=== PATIENT | female | born 1930 | race Caucasian/White ===

== ENCOUNTER 2016-06-29 11:20 | Inpatient (IN) | payer OTHER, MEDICARE ==
[~2016-06-29] VITALS: Ht 177.8 cm; Wt 78.2 kg
--- NOTE | 2016-06-29 11:55 | ED GENERAL ADULT ---
History of Present Illness General Chief Complaint: General Adult Stated Complaint: LEFT ARM NUMBNESS -CP Source: patient, family Exam Limitations: no limitations Vital Signs & Intake/Output Vital Signs & Intake/Output Vital Signs Date Time Temp Pulse Resp B/P Pulse O2 O2 Flow FiO2 Ox Delivery Rate 06/29 2141 97.8 76 20 140/80 97 06/29 2003 97.8 79 18 142/79 95 Room Air 06/29 1417 98.1 75 18 181/82 94 06/29 1146 98.4 77 20 109/69 91 Room Air Allergies Coded Allergies: No Known Drug Allergies (06/29/16) Reconcile Medications Amlodipine (Norvasc) 2.5 MG TABLET 1 TAB PO DAILY D (Reported) Levothyroxine Sodium (Synthroid) 100 MCG TABLET 1 TAB PO DAILY THYROID ( Reported) Lisinopril 20 MG TABLET 1 TAB PO DAILY HTN (Reported) Metoprolol Succinate 100 MG TAB.ER.24H 1 TAB PO DAILY HTN (Reported) Simvastatin (Zocor*) 20 MG TABLET 1 TAB PO DAILY CHOLESTEROL (Reported) Warfarin Sodium (Coumadin) 5 MG TABLET 1 TAB PO 3X/WEEK HEART HEALTH ( Reported) Warfarin Sodium (Coumadin) 2.5 MG TABLET 1 TAB PO /SUN HEART HEALTH ( Reported) Triage Note: C/O R FOREARM NUMBNESS SINCE 0900, DENIES CHEST PAIN OR SOB, BUT DOESNT RECALL IF SHE WAS DIZZY. STATES SHE HAS MEMORY PROBLEMS AND IS ON COUMADIN FOR IRREGUALR HEART BEAT. EKG DONE IN TRIAGE. Triage Nurses Notes Reviewed? yes Onset: Abrupt Duration: hour(s): Timing: recent history HPI: 06/29/16 This 86-year-old female presents to the emergency department for right arm pain and numbness. According to the patient she was in her usual state of health until 9:00 am this morning when she developed stiffness to the right arm and weakness particularly in the right thumb and first and second fingers. She says that she's had weakness and stiffness infingers before but it seemed worse today she's also had some pain radiating up mostly to the right forearm and into the right shoulder. There is no chest pain, there is no shortness of breath there is no headache there is no slurred speech. The onset of the symptoms were abrupt, the duration was just this is morning, the severity was significant as her symptoms required her to come to the emergency department for care. She does have a past medical history of a heart problem. Is currently on Coumadin. 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 Her primary care doctor is Dr. Evans his his phone number is [phone] his cell phone number is [phone] Past History Travel History Traveled to [place] past 21 day No Medical History Any Pertinent Medical History? see below for history Cardiovascular: AFIB, hypertension Surgical History Surgical History: non-contributory Psychosocial History What is your primary language Croatian Tobacco Use: Never used ETOH Use: occasional use Family History Hx Contributory? No Review of Systems Review of Systems Constitutional: Denies: fever. EENTM: Denies: visual changes. Respiratory: Denies: short of breath. Cardiovascular: Denies: chest pain. GI: Denies: abdominal pain. Genitourinary: Reports: no symptoms. Musculoskeletal: Reports: no symptoms. Skin: Reports: no symptoms. Neurological/Psychological: Reports: see HPI. Hematologic/Endocrine: Reports: no symptoms. Physical Exam Physical Exam General Appearance: well developed/nourished, alert, awake, anxious, mild distress Head: atraumatic, normal appearance Eyes: Bilateral: normal appearance, PERRL, EOMI. Ears, Nose, Throat: normal pharynx, normal ENT inspection Neck: normal inspection Respiratory: normal breath sounds, chest non-tender, no respiratory distress Cardiovascular: irregularly irregular Peripheral Pulses: 4+ brachial (R), 4+ brachial (L), 1+ radial (R), 4+ radial (L) Gastrointestinal: non-tender Rectal: heme negative stool Back: decreased range of motion Extremities: the right hand initially had only weakness to international trade teacher strength the remainder of exam was unremarkable. Neurologic/Psych: no motor/sensory deficits, awake, alert, oriented x 3 Skin: intact, normal color, warm/dry Core Measures ACS in differential dx? No CVA/TIA Diagnosis: No Severe Sepsis Present: No Septic Shock Present: No Progress Differential Diagnoses I considered the following diagnoses in my evaluation of the patient: CVA, acute coronary syndrome, thoracic outlet syndrome, TIA, aortic dissection, peripheral embolization, DVT, hematoma Plan of Care: Orders Procedure Date/time Status Nothing by Mouth 06/30 B Active FRESH FROZEN PLASMA 06/30 0400 Active PARTIAL THROMBOPLASTIN TIME 06/30 0130 Active Heart Healthy Diet 06/29 D Complete URINE OSMOLALITY 06/29 2126 Active URINE LYTES, SPOT 06/29 2126 Active URINALYSIS 06/29 2126 Active SERUM OSMOLALITY 06/29 2028 Complete PROTHROMBIN TIME 06/29 1954 Complete CBC WITHOUT DIFFERENTIAL 06/29 1954 Complete BASIC ELECTROLYTES PLUS BUN&CR 06/29 1954 Complete Pathway - chart 06/29 1951 Active House Staff 06/29 1951 Active Patient Data 06/29 1951 Active Add-on Test (ER Only) 06/29 1943 Active Patient Data 06/29 183 Active Admit to inpatient 06/29 181 Active Vital Signs 06/29 181 Active Code Status 06/29 181 Active Intake & Output 06/29 1244 Active PARTIAL THROMBOPLASTIN TIME 06/29 1230 Complete TROPONIN LEVEL 06/29 1227 Complete PROTHROMBIN TIME 06/29 1227 Complete COMPREHENSIVE METABOLIC PANEL 06/29 1227 Complete CBC WITHOUT DIFFERENTIAL 06/29 1227 Complete EKG 06/29 1123 Active Lab Add-on Test 06/29 UNK Active VTE Mechanical Prophylaxis 06/29 UNK Active Telemetry/Director Of Architecture 06/29 UNK Active Current Medications Sig/James Start time Last Medication Dose Stop Time Status Admin Atorvastatin Calcium 20 MG 1700 06/30 1700 AC (Lipitor) Amlodipine Besylate 2.5 MG DAILY 06/30 1000 AC (Norvasc) Lisinopril 20 MG DAILY 06/30 1000 AC (Prinivil) Metoprolol Succinate 100 MG DAILY 06/30 1000 AC (Toprol Xl) Levothyroxine Sodium 0.1 MG DAILY AC 06/30 0700 AC (Synthroid) Acetaminophen 650 MG Q6P PRN 06/29 2000 AC (Tylenol) Heparin Sodium 25,000 UNIT Q24H 06/29 2000 AC (Porcine) (Heparin) Sodium Chloride 500 ML Oxycodone HCl 5 MG Q6H PRN 06/29 2000 AC (Roxicodone) Laboratory Tests 06/29/162027: Anion Gap 8, Estimated GFR 59 L, BUN/Creatinine Ratio 15.6, Serum Osmolality 282 L, PT 28.0 H, INR 2.69 H, CBC w Diff NO MAN DIFF REQ, RBC 3.83 L, MCV 94.8, MCH 31.6 H, RDW 13.2, MPV 7.9, Gran % 48.2, Lymphocytes % 34.7, Monocytes % 11.3 H, Eosinophils % 5.2 H, Basophils % 0.6, Absolute Granulocytes 2.6, Absolute Lymphocytes 1.9, Absolute Monocytes 0.6, Absolute Eosinophils 0.3, Absolute Basophils 0, PUBS MCHC 33.4 06/29/16 1236: Anion Gap 12, Estimated GFR 59 L, BUN/Creatinine Ratio 20.0, Glucose 112 H, Calcium 9.7, Total Bilirubin 0.7, AST 25, ALT 25, Alkaline Phosphatase 52, Troponin I < 0.01, Total Protein 6.7, Albumin 3.8, Globulin 2.9, Albumin/ Globulin Ratio 1.3, CBC w Diff NO MAN DIFF REQ, RBC 3.95 L, MCV 93.7, MCH 31.5 H, RDW 13.2, MPV 7.8, Gran % 60.1, Lymphocytes % 24.5, Monocytes % 10.0 H, Eosinophils % 4.4, Basophils % 1.0, Absolute Granulocytes 2.9, Absolute Lymphocytes 1.2, Absolute Monocytes 0.5, Absolute Eosinophils 0.2, Absolute Basophils 0, PUBS MCHC 33.7 06/29/16 1230: PT 25.0 H, INR 2.40 H, APTT 50 H Initial ED EKG: atrial fibrillation Departure Departure Disposition: STILL A PATIENT Condition: Stable Clinical Impression Primary Impression: 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 Chest x-ray was negative. EKG shows A. fib. Labs were unremarkable. Upon reevaluation The patient has a decreased right radial pulse. She has a palpable left radial pulse. And good bilateral brachial pulses. I have called vascular surgery. She also has purple discoloration to the fingertips on the right hand. Angiogram was obtained- PATIENT: HEIDE CERON PRESENT AGE: 86 PATIENT ACCOUNT NO: [id number] : 29 LOCATION: [facility] ORDERING PHYSICIAN: RODOLFO RICHARD DO SERVICE DATE: 06/29/16-8110 EXAM TYPE: CAT - CT UPPER EXT ANGIOGRAM EXAMINATION: CT ANGIOGRAM UPPER EXTREMITY, RIGHT CLINICAL INFORMATION: Cold right hand. No radial pulse. COMPARISON: None. Or significant calcification TECHNIQUE: 95 Optiray 320 intravenous contrast. DLP: 466 mGy-cm. FINDINGS: Vascular: There is atherosclerotic calcification of the subclavian artery without stenosis. The subclavian, axillary, and proximal brachial arteries are patent without stenosis and well-opacified. There is focal, abrupt change in opacification of the distal brachial artery at the elbow joint with near complete short segment occlusion. The ulnar artery is weakly opacified. The proximal radial artery is reconstituted by a collateral vessel. However, the radial artery also has an abrupt change in opacification in the mid forearm, as seen series 2 image 898. The interosseous artery is poorly opacified. There is likely diminished flow to the arteries of the hand due to these findings, as well as bolus timing. Adjacent structures: There is a 3 mm right upper lobe pulmonary nodule. There is mild atelectasis and underlying emphysema. IMPRESSION: 1. Focal occlusion of the distal brachial artery. Given the abrupt change in opacification, a thrombus or embolus is suspected. 2. Reconstitution of the proximal radial artery via collateralization, but there is also an abrupt occlusion of the radial artery in the mid to distal third of the forearm. A second embolus is likely. 3. Weakly opacified ulnar artery, secondary to the brachial occlusion. Consider conventional angiogram to further evaluate and for possible treatment. 4. Emphysema with incidental pulmonary nodule. Recommend non-urgent follow up chest CT. This critical result was discussed with Dr. Richard at 5:37 PM on 06/29/2016 and it was ascertained that the content and urgency of the report was understood at the time of direct communication. DICTATED BY: JORJE GALINDO MD DATE/TIME DICTATED:06/29/161702 CUFFING MACHINE OPERATOR:JAVIER DATE/TIME TRANSCRIBED:06/29/161702 CONFIDENTIAL, DO NOT COPY WITHOUT APPROPRIATE AUTHORIZATION. <Electronically signed in Other Vendor System> SIGNED BY: JORJE GALINDO MD 0616 The patient was started on heparin. Vascular surgery was informed of the results. The surgical PA was informed. He evaluated the patient in the ED. The patient was admitted to the telemetry service under the blogs manager Dr. Nguyen. Admission Note Spoke With: LIZ CABRALES PhD,LEATHA Montaño Documentation of Exam: Documentation of any treatments & extenuating circumstances including Concerns Regarding Discharge (functional status, medication knowledge or non-compliance, living conditions, etc.) that warrant an admission rather than observation: [The patient needs admission for IV heparin, inpatient echocardiogram, vascular surgery consultation. I discussed the case in detail both with Dr. Cristobal originally and then with . ] Critical Care Note Critical Care Note Critical Care Time: 30-74 min
[2016-06-29 12:44] LABS: ABSOLUTE BASOPHIL COUNT 0 /CUMM (0.0-0.2); ABSOLUTE EOSINOPHIL COUNT 0.2 /CUMM (0.0-0.7); ABSOLUTE GRANULOCYTE CT 2.9 /CUMM (1.4-6.5); ABSOLUTE LYMPH COUNT 1.2 /CUMM (1.2-3.4); ABSOLUTE MONOCYTE COUNT 0.5 /CUMM (0.10-0.60); EOSINOPHIL % 4.4 % (0-5); GRANULOCYTE % 60.1 % (42.2-75.2); MEAN CORPUSCULAR HGB 31.5 PG (27.0-31.0); MEAN CORPUSCULAR HGB CONC 33.7 G/DL (33.0-37.0); MEAN CORPUSCULAR VOLUME 93.7 FL (81.0-99.0); MEAN PLATELET VOLUME 7.8 FL (7.4-10.4); PLATELET COUNT 223 /CUMM (130-400); RBC DISTRIBUTION WIDTH 13.2 % (11.5-14.5); RED BLOOD CELL CT 3.95 /CUMM (4.20-5.40); WHITE BLOOD CELL COUNT 4.8 /CUMM (4.8-10.8)
[2016-06-29] MEDS ORDERED: NORVASC2.5 M1 PO (12:45)
[2016-06-29] MEDS ORDERED: ZOCOR20 M1 PO (12:45)
[2016-06-29] MEDS ORDERED: COUMADIN5 M2 PO (12:46)
[2016-06-29] MEDS ORDERED: SYNTHROID100 MCG PO (12:47)
[2016-06-29] MEDS ORDERED: COUMADIN2.5 M1 PO (12:47)
[2016-06-29] MEDS ORDERED: LISINOPRIL20 M1 PO (12:47)
[2016-06-29] MEDS ORDERED: METOPROLOL SUC100 M2 PO (12:48)
--- NOTE | 2016-06-29 13:09 | CT SCAN REPORT ---
EXAMINATION: CT HEAD WITHOUT CONTRAST CLINICAL INFORMATION: Right arm weakness. COMPARISON: None. TECHNIQUE: Contiguous axial imaging was performed from the skull base to vertex without intravenous administration of contrast. DLP: 600.71 mGy-cm. FINDINGS: There is atherosclerotic calcification of the cavernous carotid arteries. No evidence of a dense middle cerebral artery sign or insular ribbon sign. Patchy hypoattenuation within supratentorial white matter is nonspecific but typically indicative with chronic small vessel ischemic change. The mack-white matter differentiation is well preserved. No signs of an acute major vascular territory infarction. No intracranial hemorrhage, extra-axial fluid collection, focal mass effect or midline shift. Mild atrophy of cerebral and cerebellar hemispheres associated with symmetric prominence of ventricles, sulci and cisterns. There is a mucus retention cyst of the posterior left maxillary antrum. Incidentally noted is opacification of inferior left mastoid air cells. Otherwise, mastoid air cells and middle ear cavities are well aerated. There have been ocular lens extractions. IMPRESSION: 1. No acute intracranial pathology. 2. Mild cerebral atrophy, atherosclerosis of cavernous carotid arteries, and findings suggestive of chronic, moderate small vessel ischemic change.
--- NOTE | 2016-06-29 13:17 | RADIOLOGY REPORT ---
EXAMINATION: XR PORTABLE CHEST CLINICAL INFORMATION: Right arm pain COMPARISON: None. TECHNIQUE: Portable view of the chest was obtained. FINDINGS: The lungs are well expanded. The costophrenic angles are not fully included on this study. No consolidation, edema, or significant effusion. No pneumothorax. The cardiomediastinal silhouette is within normal limits for this technique, with a calcified aorta. IMPRESSION: No acute pulmonary findings.
--- NOTE | 2016-06-29 17:41 | CT SCAN REPORT ---
EXAMINATION: CT ANGIOGRAM UPPER EXTREMITY, RIGHT CLINICAL INFORMATION: Cold right hand. No radial pulse. COMPARISON: None. Or significant calcification TECHNIQUE: 95 Optiray 320 intravenous contrast. DLP: 466 mGy-cm. FINDINGS: Vascular: There is atherosclerotic calcification of the subclavian artery without stenosis. The subclavian, axillary, and proximal brachial arteries are patent without stenosis and well-opacified. There is focal, abrupt change in opacification of the distal brachial artery at the elbow joint with near complete short segment occlusion. The ulnar artery is weakly opacified. The proximal radial artery is reconstituted by a collateral vessel. However, the radial artery also has an abrupt change in opacification in the mid forearm, as seen series 2 image 898. The interosseous artery is poorly opacified. There is likely diminished flow to the arteries of the hand due to these findings, as well as bolus timing. Adjacent structures: There is a 3 mm right upper lobe pulmonary nodule. There is mild atelectasis and underlying emphysema. IMPRESSION: 1. Focal occlusion of the distal brachial artery. Given the abrupt change in opacification, a thrombus or embolus is suspected. 2. Reconstitution of the proximal radial artery via collateralization, but there is also an abrupt occlusion of the radial artery in the mid to distal third of the forearm. A second embolus is likely. 3. Weakly opacified ulnar artery, secondary to the brachial occlusion. Consider conventional angiogram to further evaluate and for possible treatment. 4. Emphysema with incidental pulmonary nodule. Recommend non-urgent follow up chest CT. This critical result was discussed with Dr. Chun at 5:37 PM on 06/29/2016 and it was ascertained that the content and urgency of the report was understood at the time of direct communication.
--- NOTE | 2016-06-29 18:38 | Cons- Vascular Surgery ---
General Information and HPI Consulting Request Date of Consult: 06/29/16 Requested By: Parveen Nguyen MD Reason for Consult: Right upper extremity arterial thrombosis Source of Information: patient, family Exam Limitations: no limitations History of Present Illness: This is an 86-year-old female with a known history of A. fib treated on Coumadin who came to [facility] this morning with complaints of right upper extremity pain, stiffness, and numbness which began approximately 9:00 this morning. The patient had never experienced anything similar in the past and had no other complaints at the current time. Allergies/Medications Allergies: Coded Allergies: No Known Drug Allergies (06/29/16) Home Med List: Amlodipine (Norvasc) 2.5 MG TABLET 1 TAB PO DAILY D (Reported) Dabigatran Etexilate Mesylate (Pradaxa 150 MG) 150 MG CAPSULE 1 CAP PO BID blood thinner Levothyroxine Sodium (Synthroid) 100 MCG TABLET 1 TAB PO DAILY THYROID ( Reported) Lisinopril 20 MG TABLET 1 TAB PO DAILY HTN (Reported) Simvastatin (Zocor*) 20 MG TABLET 1 TAB PO DAILY CHOLESTEROL (Reported) Past History Medical History Cardiovascular: AFIB, hypertension, hyperlipidemia Endocrine: hypothyroidism Surgical History Pertinent Surgical History: appendectomy Psychosocial History Where Do You Live? Home Who Do You Live With? child Smoking Status: Never Smoked ETOH Use: occasional use Functional Ability ADLs Independent: dressing, eating, toileting, bathing. Review of Systems Review of Systems Cardiovascular: Denies: chest pain, palpitations. Respiratory: Denies: cough, short of breath. GI: Denies: bloody stool. Exam & Diagnostic Data Vital Signs and I&O Vital Signs Date Time Temp Pulse Resp B/P Pulse O2 O2 Flow FiO2 Ox Delivery Rate 06/29 1417 98.1 75 18 181/82 94 06/29 1146 98.4 77 20 109/69 91 Room Air Intake & Output 06/29 1600 06/29 0800 06/29 0000 06/28 1600 06/28 0800 06/28 0000 Intake Total Output Total Balance Patient 200 lb Weight Laboratory Tests 06/29 06/29 1236 1230 Chemistry Sodium (137 - 145 mmol/L) 132 L Potassium (3.5 - 5.1 mmol/L) 4.0 Chloride (98 - 107 mmol/L) 92 L Carbon Dioxide (22 - 30 mmol/L) 28 Anion Gap (5 - 16) 12 BUN (7 - 17 mg/dL) 18 H Creatinine (0.5 - 1.0 mg/dL) 0.9 Estimated GFR (>60 ml/min) 59 L BUN/Creatinine Ratio (7 - 25 %) 20.0 Glucose (65 - 99 mg/dL) 112 H Calcium (8.4 - 10.2 mg/dL) 9.7 Total Bilirubin (0.2 - 1.3 mg/dL) 0.7 AST (14 - 36 U/L) 25 ALT (9 - 52 U/L) 25 Alkaline Phosphatase (<127 U/L) 52 Troponin I (< 0.11 ng/ml) < 0.01 Total Protein (6.3 - 8.2 g/dL) 6.7 Albumin (3.5 - 5.0 g/dL) 3.8 Globulin (1.9 - 4.2 gm/dL) 2.9 Albumin/Globulin Ratio (1.1 - 2.2 %) 1.3 Coagulation PT (9.4 - 12.5 SEC) 25.0 H INR (0.90 - 1.19) 2.40 H Hematology CBC w Diff NO MAN DIFF REQ WBC (4.8 - 10.8 /CUMM) 4.8 RBC (4.20 - 5.40 /CUMM) 3.95 L Hgb (12.0 - 16.0 G/DL) 12.5 Hct (37 - 47 %) 37.0 MCV (81.0 - 99.0 FL) 93.7 MCH (27.0 - 31.0 PG) 31.5 H RDW (11.5 - 14.5 %) 13.2 Plt Count (130 - 400 /CUMM) 223 MPV (7.4 - 10.4 FL) 7.8 Gran % (42.2 - 75.2 %) 60.1 Lymphocytes % (20.5 - 51.1 %) 24.5 Monocytes % (1.7 - 9.3 %) 10.0 H Eosinophils % (0 - 5 %) 4.4 Basophils % (0.0 - 2.0 %) 1.0 Absolute Granulocytes (1.4 - 6.5 /CUMM) 2.9 Absolute Lymphocytes (1.2 - 3.4 /CUMM) 1.2 Absolute Monocytes (0.10 - 0.60 /CUMM) 0.5 Absolute Eosinophils (0.0 - 0.7 /CUMM) 0.2 Absolute Basophils (0.0 - 0.2 /CUMM) 0 PUBS MCHC (33.0 - 37.0 G/DL) 33.7 CAT scan findings: 1. Focal occlusion of the distal brachial artery. Given the abrupt change in opacification, a thrombus or embolus is suspected. 2. Reconstitution of the proximal radial artery via collateralization, but there is also an abrupt occlusion of the radial artery in the mid to distal third of the forearm. A second embolus is likely. 3. Weakly opacified ulnar artery, secondary to the brachial occlusion. Consider conventional angiogram to further evaluate and for possible treatment. 4. Emphysema with incidental pulmonary nodule. Recommend non-urgent follow up chest CT. Physical Exam: Gen.: Alert and in obvious distress Skin: Warm and dry Cardiac: S1 and S2 irregular Pulmonary: Bilateral breath sounds are equal good exchange Abdomen: Soft, nontender, nondistended Extremities: Bilateral lower extremities are warm without calf tenderness or significant edema. Right upper extremity: Slightly cooler compared to the left extremity with cyanosis noted at the nailbeds. Gross motor and sensory are intact but there is some slight diminished fine sensation. There is are nonpalpable brachial and radial pulses. Assessment/Plan Assessment/Plan Assessment: 86-year-old female with a history of A. fib on Coumadin found to have a brachial artery thrombosis. Case was discussed with Dr. Land. Recommendations: Keep patient nothing by mouth Start a heparin drip The patient will receive 2 units of FFP starting at 4 AM Stat repeat labs for 6 AM Probable surgical intervention early tomorrow morning Continue to monitor neurovascular checks Problem List: 1. Arterial occlusion Consult Acknowledgment - Thank you for your consult request. Consult Acknowledgment - Thank you for your consult request.
[2016-06-29 20:28] LABS: PTT 50 SEC (25-37)
[2016-06-29 20:38] LABS: ABSOLUTE BASOPHIL COUNT 0 /CUMM (0.0-0.2); ABSOLUTE EOSINOPHIL COUNT 0.3 /CUMM (0.0-0.7); ABSOLUTE GRANULOCYTE CT 2.6 /CUMM (1.4-6.5); ABSOLUTE LYMPH COUNT 1.9 /CUMM (1.2-3.4); ABSOLUTE MONOCYTE COUNT 0.6 /CUMM (0.10-0.60); BASOPHIL % 0.6 % (0.0-2.0); EOSINOPHIL % 5.2 % (0-5); GRANULOCYTE % 48.2 % (42.2-75.2); HEMATOCRIT 36.3 % (37-47); MEAN CORPUSCULAR HGB 31.6 PG (27.0-31.0); MEAN CORPUSCULAR HGB CONC 33.4 G/DL (33.0-37.0); MEAN CORPUSCULAR VOLUME 94.8 FL (81.0-99.0); MEAN PLATELET VOLUME 7.9 FL (7.4-10.4); PLATELET COUNT 220 /CUMM (130-400); RBC DISTRIBUTION WIDTH 13.2 % (11.5-14.5); RED BLOOD CELL CT 3.83 /CUMM (4.20-5.40); WHITE BLOOD CELL COUNT 5.4 /CUMM (4.8-10.8)
--- NOTE | 2016-06-29 20:42 | PN- Vascular Surgery ---
Surgical Brief Attending Note Brief Attending Note: Reviewed vascular note and agree. 86 yo female with afib, on coumadin. Acute onset of right arm pain, numbness early this morning. Patient is on coumadin, and INR is 2.[address] angio showing distal right brachial artery thrombus/embolus. EXAM WD, WN female NAD Heart irreg Lungs clear Abdom soft,nt,nd RIGHT arm - hand pink, good motor, mild cool, no cyanosis; radial and brachial pulses nonpalpable. A/P Right brachial artery embolus Agree with IV heparin. Will plan no Right brachial artery embolectomy tomorrow AM. 2units FFP a few hours before surgery. Continue therapeutic IV heparin to OR. Risks and benefits discussed with patient and daughter at bedside.
--- NOTE | 2016-06-29 21:07 | History & Physical ---
See Addendum MAIA CABRALES,ARSENIO 06/29/16 0783: General Information and HPI MD Statement: I have seen and personally examined HEIDE CERON and documented this H&P. The patient is a 86 year old F who presented with a patient stated chief complaint of [right arm numbness]. Source of Information: patient, family Exam Limitations: no limitations History of Present Illness: Patient is a 86-year-old lady was brought into the ED due to sudden onset of right arm numbness. Patient is hard of hearing and history is mostly provided by her daughter. According to her daughter since 9 AM patient started to have pain in the right arm, extending from the shoulder down to tip of her fingers. Pain was constant and accompanied by intermittent feeling of numbness in the arm and the hand. She also reported her hand looked pale and felt icy. PCP (Dr. Godwin) was called on the phone and they were advised to bring patient to the ED. Patient has a history of atrial fibrillation on Coumadin, also has a history of hypertension and hyperlipidemia. Patient does not report similar symptoms in the past but often times encounters difficulty opening her hand (right side) and has to get help from her left hand to open [extend] the fingers of her right hand. Patient denies chest pain, palpitation, shortness of breath. She reports dizziness which she always has had. Denies fever and chills, coughing, abdominal pain, changes in bowel habits, dysuria. Allergies/Medications Allergies: Coded Allergies: No Known Drug Allergies (06/29/16) Home Med list Amlodipine (Norvasc) 2.5 MG TABLET 1 TAB PO DAILY D (Reported) Levothyroxine Sodium (Synthroid) 100 MCG TABLET 1 TAB PO DAILY THYROID ( Reported) Lisinopril 20 MG TABLET 1 TAB PO DAILY HTN (Reported) Metoprolol Succinate 100 MG TAB.ER.24H 1 TAB PO DAILY HTN (Reported) Simvastatin (Zocor*) 20 MG TABLET 1 TAB PO DAILY CHOLESTEROL (Reported) Warfarin Sodium (Coumadin) 5 MG TABLET 1 TAB PO 3X/WEEK HEART HEALTH ( Reported) Warfarin Sodium (Coumadin) 2.5 MG TABLET 1 TAB PO WEDS/SUN HEART HEALTH ( Reported) Past History Travel History Traveled to [place] past 21 day No Medical History Cardiovascular: AFIB, hypertension, hyperlipidemia Endocrine: hypothyroidism Surgical History Surgical History: appendectomy Past Family/Social History Psychosocial History Where do you live? Home Who Do You Live With? child Smoking Status: Never Smoked ETOH Use: occasional use Functional Ability ADLs Independent: dressing, eating, toileting, bathing. Review of Systems Review of Systems Constitutional: Denies: chills, fever, malaise, weakness. EENTM: Denies: visual changes, hearing changes. Cardiovascular: Denies: chest pain, edema, orthopena, palpitations, peripheral edema, syncope. Respiratory: Denies: cough, short of breath, sputum production. GI: Denies: abdominal pain, nausea, changes in stool, vomiting. Genitourinary: Denies: dysuria, urgency. Musculoskeletal: Denies: back pain, joint pain. Skin: Reports: no symptoms. Neurological/Psychological: Reports: numbness, tingling. Denies: headache, tremors, weakness. Hematologic/Endocrine: Denies: bruising, bleeding, polyuria, polydipsia. Exam & Diagnostic Data Last 24 Hrs of Vital Signs/I&O Vital Signs Date Time Temp Pulse Resp B/P Pulse O2 O2 Flow FiO2 Ox Delivery Rate 06/29 2354 98.1 71 20 118/62 96 Room Air 06/29 2141 97.8 76 20 140/80 97 06/29 2003 97.8 79 18 142/79 95 Room Air 06/29 1417 98.1 75 18 181/82 94 06/29 1146 98.4 77 20 109/69 91 Room Air Intake & Output 06/30 0800 06/30 0000 06/29 1600 Intake Total 260 Output Total 350 Balance -90 Intake, IV 60 Intake, Oral 200 Number 0 Bowel Movements Output, Urine 350 Patient 78.188 kg 90.718 kg Weight Physical Exam General Appearance Alert, Oriented X3, Cooperative, No Acute Distress Skin No Rashes, No Breakdown, No Significant Lesion HEENT Atraumatic, PERRLA, EOMI, Mucous Membr. moist/pink Neck Supple, No JVD Cardiovascular Normal S1, Normal S2, irregularly irregular, soft 1-2/6 systolic murmur best heard at aortic and pulmonic areas. Lungs Clear to Auscultation, Normal Air Movement Abdomen Normal Bowel Sounds, Soft, No Tenderness Neurological Normal Gait, Normal Speech, Strength at 5/5 X4 Ext, Normal Tone, Sensation Intact, Cranial Nerves 3-12 NL Extremities No Clubbing, No Cyanosis, No Edema, No Tenderness/Swelling, right arm is mildly cold to touch Vascular nonpalpable radial pulses on the right side. right brachial pulse is palpable and 2+. pulses present and 3+ in all other extremities Last 24 Hrs of Labs/Markus: Laboratory Tests 06/29/162027: Anion Gap 8, Estimated GFR 59 L, BUN/Creatinine Ratio 15.6, Serum Osmolality 282 L, PT 28.0 H, INR 2.69 H, CBC w Diff NO MAN DIFF REQ, RBC 3.83 L, MCV 94.8, MCH 31.6 H, RDW 13.2, MPV 7.9, Gran % 48.2, Lymphocytes % 34.7, Monocytes % 11.3 H, Eosinophils % 5.2 H, Basophils % 0.6, Absolute Granulocytes 2.6, Absolute Lymphocytes 1.9, Absolute Monocytes 0.6, Absolute Eosinophils 0.3, Absolute Basophils 0, PUBS MCHC 33.4 06/29/16 1236: Anion Gap 12, Estimated GFR 59 L, BUN/Creatinine Ratio 20.0, Glucose 112 H, Calcium 9.7, Total Bilirubin 0.7, AST 25, ALT 25, Alkaline Phosphatase 52, Troponin I < 0.01, Total Protein 6.7, Albumin 3.8, Globulin 2.9, Albumin/ Globulin Ratio 1.3, CBC w Diff NO MAN DIFF REQ, RBC 3.95 L, MCV 93.7, MCH 31.5 H, RDW 13.2, MPV 7.8, Gran % 60.1, Lymphocytes % 24.5, Monocytes % 10.0 H, Eosinophils % 4.4, Basophils % 1.0, Absolute Granulocytes 2.9, Absolute Lymphocytes 1.2, Absolute Monocytes 0.5, Absolute Eosinophils 0.2, Absolute Basophils 0, PUBS MCHC 33.7 06/29/16 1230: PT 25.0 H, INR 2.40 H, APTT 50 H Assessment/Plan Assessment: Patient is an 86-year-old lady with a history of atrial fibrillation, hypertension hyperlipidemia that was brought in by her daughter due to sudden onset pain, numbness in tingling of the right arm extending from shoulder to fingers. An GM of the right upper extremity revealed focal occlusion of the distal brachial artery suspicious for thrombus or embolus. Vital signs on admission: Temperature 98.1, pulse rate 79, respiratory rate 18, blood pressure 142/79, saturating in room air. Lab work significant for hyponatremia of 132, decreased serum osmolality to 282, INR of 2.69H&H 12.1/36.3 Problem list and plan: Right brachial artery embolus * Consulted vascular surgery * Continue IV heparin * Right brachial artery embolectomy tomorrow AM * Nothing by mouth after midnight * 2units of FFP overnight before surgery to reverse the INR Hyponatremia Low serum osmolality (282) * Check Urine lytes, urine osmolality History of atrial fibrillation * Coumadin on hold for now, on IV heparin for the procedure * Monitor INR in a.m. History of hypertension * Continue amlodipine 2.5 mg daily History of CAD - old anterior [place] based on EKG Patient does not report a history of [place] * Continue aspirin, statin, metoprolol 100 mg daily History of hypothyroidism * Continue levothyroxine 0.1 mg daily Pain * Tylenol for mild pain * Oxycodone 5 mg every 6 when necessary for moderate to severe pain DVT prophylaxis * Subcutaneous heparin Diet * Heart healthy, nothing by mouth after midnight Full code As Ranked By This Provider Problem List: 1. 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 Atrial fibrillation 3. 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 Core Measures/Miscellaneous Acute Coronary Syndrome ACS Diagnosis: No Cerebrovascular Accident CVA/TIA Diagnosis: No Congestive Heart Failure CHF Diagnosis: No Venous Thromboembolism VTE Risk Factors: Acute medical illness, Age > 40 VTE Prophylaxis Ordered Inpt: [facility] prophylaxis d/t: No contraindications No VTE Pharm Prophylaxis d/t: No contraindications VTE Diagnosis: No VTE Type: NONE VTE Confirmed by (Test): NONE Severe Sepsis Severe Sepsis Present: No Septic Shock Septic Shock Present: No Miscellaneous Documentation Attending Case Discussed With: LIZ CABRALES PhD,LEATHA Montaño Primary Care Physician: JAMSHID GODWIN MD Patient sees these Specialists not known Level of Patient Care: Telemetry NOMI YAP 06/29/162109: Resident Review Statement Resident Statement: examined this patient, discussed with quality internship, agreed with quality internship Other Findings: The patient is a 86-year-old woman with past medical history significant for atrial fibrillation on Coumadin, history of hypertension hyperlipidemia presented to the ED with a chief complaints of sudden onset right hand and arm numbness and tingling. As per patient her symptoms started at around 9 AM, with numbness and tingling in the right hand that progressively got worse radiating to the mostly to the right forearm and into the right shoulder.the numbness and tingling was associated with severe pain in the arm and hand, she noticed that she cannot able to move her right upper extremity appeared pale and cold. She called her primary care physician(Dr. Ansari :phone number is [phone] his cell phone number is [phone] )and as per recommendations she came to the ER for further assessment. In the ER patient denied any chest discomfort/trouble breathing/palpitations. Denies any headache/lightheadedness/dizziness. No nausea/vomiting with abdominal complaint. No urinary complaints. Appetite has been good. vitals on admission it to be 98.4, pulse 77,Respiratory rate 20, blood pressure 109/69 on room air. General Appearance:alert oriented 3 not in acute distress. Skin: Grossly normal HEENT: PEERLA Neck: Supple, No JVD Cardiovascular: Regular Rate, Normal S1, Normal S2, systolic murmur in the second right intercostal space. Lungs: Equal breath sounds bilaterally on lung exam without any rhonchi or wheeze Abdomen: Normal Bowel Sounds, Soft, lower abdominal tenderness. Neurological: Normal Speech, Strength at 5/5 X4 Ext, Cranial Nerves 3-12 NL, Reflexes 2+ Extremities: Normal without any edema. Vascular: Normal Pulses. Pertinent labs on admission: WBC count normal at 5.4, H&H stable 12.1/36.3, elevated INR 2.69, hyponatremia 131, first troponin negative EKG done in the ED showed atrial fibrillation without any RVR. CTA of the right upper extremity done in the ED showed: Focal occlusion of the distal brachial artery. Given the abrupt change in opacification, a thrombus or embolus is suspected. Chest x-ray normal Assessment/plan: 1. Acute right brachial artery embolus(History of atrial fibrillation, on Coumadin): * We will admit patient on telemetry floor * Patient has been started on IV heparin Will continue with anticoagulation. * Vascular surgery consult has been obtained as per recommendations, we will transfuse 2 units of FFP at 4 AM(to reverse the INR). Do stat labs including CBC BEP and INR at 6 AM. * Most likely patient will go for right brachial artery embolectomy in the morning.We will continue with IV heparin until the surgery. * Hold Coumadin for now. 2. History of hypertension hyperlipidemia: * Continue medications. 3. Euvolemic hyponatremia: * Sodium is 133 * We will check urine lites, a urine osmolality and serum osmolality. 4. Mild to moderate pain controlled with Tylenol. 5. DVT prophylaxis with heparin 6. Full code
[2016-06-29 21:41] VITALS: BP 140/80
[2016-06-29 23:54] VITALS: BP 118/62
[2016-06-30 04:56] LABS: PTT > 120 SEC (25-37)
[2016-06-30 07:30] VITALS: BP 160/70
--- NOTE | 2016-06-30 07:36 | PN- Housestaff ---
Subjective Follow-up For: Right upper extremity arterial thrombus Tele-Events Since Last Visit: Afib. HR 63-78. PVCs. Subjective: No acute events overnight. Patient seen and examined this morning. She has no complaints. Right arm pain has resolved and she currently has full range of motion in that arm, although there is some residual numbness. Patient underwent embolectomy later on today. After the surgery, around 3:30 PM patient fell face forward onto the ground while attempting to get out of bed. She was without any neurological symptoms. CT Head showed subdural hematoma and she was subsequently transferred to the ICU. Review of Systems Constitutional: Reports: see HPI. Cardiovascular: Denies: chest pain, palpitations. Objective Last 24 Hrs of Vital Signs/I&O Vital Signs Date Time Temp Pulse Resp B/P Pulse O2 O2 Flow FiO2 Ox Delivery Rate 06/30 1010 93 138/78 06/30 0730 97.6 70 20 160/70 96 Room Air 06/29 2354 98.1 71 20 118/62 96 Room Air 06/29 2141 97.8 76 20 140/80 97 06/29 2003 97.8 79 18 142/79 95 Room Air 06/29 1417 98.1 75 18 181/82 94 06/29 1146 98.4 77 20 109/69 91 Room Air Intake & Output 06/30 1600 06/30 0800 06/30 0000 Intake Total 480 260 Output Total 350 350 Balance 130 -90 Intake, Blood 250 Product Intake, IV 180 60 Intake, Oral 50 200 Number 1 0 Bowel Movements Output, Urine 350 350 Patient 78.188 kg Weight Physical Exam General Appearance: Alert, Oriented X3, No Acute Distress HEENT: Mucous Membr. moist/pink Cardiovascular: Irregular Rhythm Lungs: Clear to Auscultation Abdomen: Soft, No Tenderness, Positive Bowel Sounds Neurological: Strength at 5/5 BUE Extremities: No Clubbing, No Cyanosis, No Edema, RLE with Normal ROM Current Medications: Current Medications Sig/James Start time Last Medication Dose Route Stop Time Status Admin Acetaminophen 650 MG Q6P PRN 06/29 2000 AC PO Amlodipine Besylate 2.5 MG DAILY 06/30 1000 AC PO Atorvastatin Calcium 20 MG 1700 06/30 1700 AC PO Heparin Sodium 25,000 UNIT Q24H 06/29 2000 AC (Porcine) IV Sodium Chloride 500 ML Heparin Sodium 0 .STK-MED ONE 06/29 1914 DC (Porcine) .ROUTE Heparin Sodium 5,000 UNIT ONCE ONE 06/29 1815 DC 06/29 (Porcine) IV 06/290 Heparin Sodium 25,000 UNIT ONCE ONE 06/29 1815 AC 06/29 (Porcine) IV 06/30 141 1930 Sodium Chloride 500 ML Levothyroxine Sodium 0.1 MG DAILY AC 06/30 0700 AC 06/30 PO 0536 Lisinopril 20 MG DAILY 06/30 1000 AC PO Metoprolol Succinate 100 MG DAILY 06/30 1000 AC 06/30 PO 1010 Oxycodone HCl 5 MG Q6H PRN 06/29 2000 AC PO Last 24 Hrs of Lab/Markus Results Last 24 Hrs of Labs/Mics: Laboratory Tests 06/30/16 1000: CBC w Diff Pending, WBC Pending, RBC Pending, Hgb Pending, Hct Pending, MCV Pending, MCH Pending, RDW Pending, Plt Count Pending, MPV Pending, PUBS MCHC Pending 06/30/16 0826: Anion Gap 9, Estimated GFR 59 L, BUN/Creatinine Ratio 16.7, Magnesium 1.6, PT 19.8 H, INR 1.90 H 06/30/16 0600: Stool Lactoferrin Cancelled 06/30/16 0300: APTT > 120 *H 06/29/162125: Urine Osmolality Cancelled, Ur Random Creatinine Cancelled, Ur Random Sodium Cancelled, Ur Random Potassium Cancelled, Fraction Sodium Excret Cancelled 06/29/162027: Anion Gap 8, Estimated GFR 59 L, BUN/Creatinine Ratio 15.6, Serum Osmolality 282 L, PT 28.0 H, INR 2.69 H, CBC w Diff NO MAN DIFF REQ, RBC 3.83 L, MCV 94.8, MCH 31.6 H, RDW 13.2, MPV 7.9, Gran % 48.2, Lymphocytes % 34.7, Monocytes % 11.3 H, Eosinophils % 5.2 H, Basophils % 0.6, Absolute Granulocytes 2.6, Absolute Lymphocytes 1.9, Absolute Monocytes 0.6, Absolute Eosinophils 0.3, Absolute Basophils 0, PUBS MCHC 33.4 06/29/16 1236: Anion Gap 12, Estimated GFR 59 L, BUN/Creatinine Ratio 20.0, Glucose 112 H, Calcium 9.7, Total Bilirubin 0.7, AST 25, ALT 25, Alkaline Phosphatase 52, Troponin I < 0.01, Total Protein 6.7, Albumin 3.8, Globulin 2.9, Albumin/ Globulin Ratio 1.3, CBC w Diff NO MAN DIFF REQ, RBC 3.95 L, MCV 93.7, MCH 31.5 H, RDW 13.2, MPV 7.8, Gran % 60.1, Lymphocytes % 24.5, Monocytes % 10.0 H, Eosinophils % 4.4, Basophils % 1.0, Absolute Granulocytes 2.9, Absolute Lymphocytes 1.2, Absolute Monocytes 0.5, Absolute Eosinophils 0.2, Absolute Basophils 0, PUBS MCHC 33.7 06/29/16 1230: PT 25.0 H, INR 2.40 H, APTT 50 H Orders Radiology Findings: CT HEAD (06/30): There is a new hyperdense extra-axial collection along the left paramedian aspect of the anterior falx consistent with a subdural hematoma. There is no acute cervical spine injury. There is degenerative change throughout the cervical spine, most severe at C5-C6. Assessment/Plan Assessment: 86 y/o F with PMHx of atrial fibrillation on warfarin, HTN and HLD who presented with RUE arterial thrombus s/p embolectomy, now with subdural hematoma following mechanical fall. #Subdural hematoma: CT Head following mechanical fall with small subdural hematoma. Patient is without any neurological symptoms. Cervical Spine CT with no acute cervical spine injury. * Patient transferred to the ICU for close monitoring. * Neurosurgery consulted. Appreciate their recs. * Will repeat CT Head in six hours to evaluate for interval changes. * Neurovascular and GCS checks Q2H. If there are any concerning mental status changes, repeat CT Head Stat. * Heparin IV drip which was started post-operatively discontinued. * Will hold-off on anticoagulant agents for the next 48 hours. #RUE arterial thrombus: S/p embolectomy today. Per Hematology, given the arterial nature of the thrombus, patient will most likely need to be on an antiplatelet agent in addition to anticoagulation and could benefit from switching to a different anticoagulant such as dabigatran, apixaban and rivaroxaban. Dabigatran may be the most suitable agent as it has a reversal agent for bleeding. * Vascular surgery following. Appreciate their recs. * Hematology following. Appreciate their recs. * ECHO ordered to evaluate for thrombus and valvular disease. * Abdominal aorta US ordered to evaluate for potential sources of thrombus. Diet: NPO DVT PPx: ALPs CODE: FULL Problem List: 1. Atrial fibrillation 2. Acute thrombosis of right upper extremity 3. Arterial occlusion due to thromboembolism 4. Subdural hematoma Pain Ratin Pain Location: N/A Pain Goal: Remain pain free Pain Plan: Roxicodone 5 mg PO Q6H PRN for moderate pain (scale 4-6) Tylenol 650 mg PO Q6H mild pain (scale 1-3) Tomorrow's Labs & Rationales: CBC to monitor H/H post-operatively BMP and Mg to monitor lytes and kidney function INR in the setting of atrial fibrillation and warfarin therapy
[2016-06-30 09:39] LABS: PT 19.8 SEC (9.4-12.5)
--- NOTE | 2016-06-30 10:03 | Cons- Cardiology ---
General Information and HPI Consulting Request Date of Consult: 06/30/16 Requested By: LIZ CABRALES PhD,LEATHA Montaño History of Present Illness: Grazyna is an 86 year old female with history of atrial fibrillation with therapeutic INR, hypertension and dyslipidemia who noted the sudden onset of severe right arm pain yesterday. This discomfort was accompanied by a loss of movement, numbness of the extremity and coldness consistent with an arterial occlusion. This was confirmed by CT angiography. The patient at her baseline does not experience any chest discomfort and has only rare palpitations. She has shortness of breath with short walks but typically breathes well lying down. The patient was started on IV heparin and now feels improved with resolution of her arm discomfort. There is some residual numbness. Allergies/Medications Allergies: Coded Allergies: No Known Drug Allergies (06/29/16) Home Med List: Amlodipine (Norvasc) 2.5 MG TABLET 1 TAB PO DAILY D (Reported) Levothyroxine Sodium (Synthroid) 100 MCG TABLET 1 TAB PO DAILY THYROID ( Reported) Lisinopril 20 MG TABLET 1 TAB PO DAILY HTN (Reported) Metoprolol Succinate 100 MG TAB.ER.24H 1 TAB PO DAILY HTN (Reported) Simvastatin (Zocor*) 20 MG TABLET 1 TAB PO DAILY CHOLESTEROL (Reported) Warfarin Sodium (Coumadin) 5 MG TABLET 1 TAB PO 3X/WEEK HEART HEALTH ( Reported) Warfarin Sodium (Coumadin) 2.5 MG TABLET 1 TAB PO WED/SUN HEART HEALTH ( Reported) Review of Systems Review of Systems: dizziness Past History Travel History Traveled to [place] past 21 day No Medical History Blood Transfusion Hx: Yes Neurological: NONE EENT: NONE Cardiovascular: AFIB, hypertension, hyperlipidemia Respiratory: NONE Gastrointestinal: NONE Hepatic: NONE Renal: NONE Musculoskeletal: NONE Psychiatric: NONE Endocrine: hypothyroidism Blood Disorders: NONE Cancer(s): NONE 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 Home Who Do You Live With? child Services at Home: None Smoking Status: Never Smoked ETOH Use: occasional use Functional Ability ADLs Independent: dressing, eating, toileting, bathing. Exam & Diagnostic Data Vital Signs and I&O Vital Signs Date Time Temp Pulse Resp B/P Pulse O2 O2 Flow FiO2 Ox Delivery Rate 06/30 0730 97.6 70 20 160/70 96 Room Air 06/29 2354 98.1 71 20 118/62 96 Room Air 06/29 2141 97.8 76 20 140/80 97 06/29 2003 97.8 79 18 142/79 95 Room Air 06/29 1417 98.1 75 18 181/82 94 06/29 1146 98.4 77 20 109/69 91 Room Air Intake & Output 06/30 1600 06/30 0800 06/30 0000 06/29 1600 06/29 0800 06/29 0000 Intake Total 480 260 Output Total 350 350 Balance 130 -90 Intake, Blood 250 Product Intake, IV 180 60 Intake, Oral 50 200 Number 1 0 Bowel Movements Output, Urine 350 350 Patient 172 lb 200 lb Weight Physical Exam: General: WD/ WN female in NAD; alert and oriented x 3 HEENT: NC/AT, PERRL, EOMI, clear oropharynx Neck: no JVD, transmitted carotid bruits Heart: irregularly irregular with 3/6 systolic murmur at the LLSB, 2/6 systolic murmur at the apex and 2/6 systolic and diasolic murmur at the RUSB Lungs: clear bilaterally Abdomen: soft, NT, +ve bowel sounds Extremities: no edema, Right hand has minimal coolness of the index finger at the present time. There is a 1+ right radial pulse and a 2+ right ulnar pulse and normal pulses noted in the right brachial and cephalic arteries. Neuro: non-focal, normal muscle strength Diagnostic Data EKG Results atrial fibrillation with old anterior [place] Assessment/Plan Assessment/Plan * This patient has experienced an embolic thrombus of the distal brachial and radial artery. She is doing better with resolution of her discomfort post therapy with IV heparin. She now anticipates vascular surgery with thrombectomy. * In consideration of failure on coumadin we will have hematology see this patient and will likely change her to a novel anticoagulant agent. * Obtain an echocardiogram to assess for thrombus and to assess her valvular disease. Consult Acknowledgment - Thank you for your consult request.
[2016-06-30 12:00] LABS: ABSOLUTE BASOPHIL COUNT 0 /CUMM (0.0-0.2); ABSOLUTE EOSINOPHIL COUNT 0.4 /CUMM (0.0-0.7); ABSOLUTE GRANULOCYTE CT 3.1 /CUMM (1.4-6.5); ABSOLUTE LYMPH COUNT 1.7 /CUMM (1.2-3.4); ABSOLUTE MONOCYTE COUNT 0.4 /CUMM (0.10-0.60); BASOPHIL % 0.4 % (0.0-2.0); EOSINOPHIL % 6.4 % (0-5); GRANULOCYTE % 55.9 % (42.2-75.2); HEMATOCRIT 37.7 % (37-47); MEAN CORPUSCULAR HGB CONC 33.8 G/DL (33.0-37.0); MEAN CORPUSCULAR VOLUME 94.6 FL (81.0-99.0); MEAN PLATELET VOLUME 9.1 FL (7.4-10.4); PLATELET COUNT 223 /CUMM (130-400); RBC DISTRIBUTION WIDTH 13.6 % (11.5-14.5); RED BLOOD CELL CT 3.99 /CUMM (4.20-5.40); WHITE BLOOD CELL COUNT 5.6 /CUMM (4.8-10.8)
--- NOTE | 2016-06-30 12:23 | Operative Report ---
Operative/Inv Procedure Report Surgery Date: 06/30/16 Name of Procedure: Right brachial artery embolectomy Pre-Operative Diagnosis: Right brachial artery embolus Post-Operative Diagnosis: The same Estimated Blood Loss: less than 50ml Surgeon/Oracle Ebs Developer: MD Marla Box Anesthesia: laryngeal mask airway, local 1% lidocaine Specimens: Brachial artery embolus Operative Indication: Acute right upper extremity ischemia Operative/Procedure Note Note: Right arm was prepped and draped in usual sterile fashion. She received 2 g of Ancef within 30 minutes of incision. 1% lidocaine was used for local. A longitudinal incision over the brachial artery pulse at the antecubital fossa was made. Incision assessment done using electrocautery. The fascia over the brachial artery was divided. The brachial artery was dissected after venous tributaries are ligated with 3-0 and 4-0 silk's. The brachial artery was controlled with vessel loop. The radial artery and ulnar arteries are also looped. Patient was given 5000 units of heparin. A horizontal arteriotomy was made over the distal brachial artery with 11 blade, pot scissors. A number 2 Blake catheter was placed into the ulnar artery and thrombus was removed, and sent to pathology. Additional passes were done with excellent backbleeding and no more thrombus. The #2 blake was placed into the radial artery is well, with no thrombus extracted, and mild backbleeding. The #2 blake catheter was also placed retrograde into the brachial artery with no thrombus extracted. Vessel was then closed with 7-0 Prolene interrupted, flushed prior to closure. There is a good Doppler signal and good pulse. Patient had palpable radial and ulnar pulses upon completion. The wound was closed with 3-0 Vicryl and 4-0 Monocryl and Steri-Strips, and dry gauze. Patient tolerated the procedure well.
--- NOTE | 2016-06-30 13:31 | Event Note ---
Event Note Event Note: Discussed with Surgical team. They recommend starting heparin gtt with goal PTT 60-80, and a hematology workup for acquired coagulopathy with hematology. Surgeon noted significant oozing luther-operatively and would defer NOAC therapy till Sunday.
[2016-06-30 13:48] VITALS: BP 140/80
[2016-06-30 15:30] VITALS: BP 160/80
--- NOTE | 2016-06-30 15:36 | Event Note ---
Event Note Event Note: Around 3:30 PM patient fell face forward onto the ground while trying to get out of bed with her ALPs still attached. Rapid response was called. Patient was found face down lying on the ground. GCS score was 15/15. Patient was placed on back board and lifted on the stretcher. CT Head/Neck was ordered which showed subdural hematoma. Patient was without any neurological symptoms. IV heparin was discontinued. Patient was placed on Q2H neuro checks and Sukhdeep coma scale and transferred to the ICU.
[2016-06-30 16:11] VITALS: BP 120/70
--- NOTE | 2016-06-30 16:23 | CT SCAN REPORT ---
EXAMINATION: CT HEAD, NONCONTRAST. CT CERVICAL SPINE, NONCONTRAST. CLINICAL INFORMATION: Status post fall. COMPARISON: Head CT dated 06/29/2016. TECHNIQUE: Computed tomography of the head and cervical spine were performed. FINDINGS: Head: There is a new hyperdense extra-axial collection along the left paramedian aspect of the anterior falx measuring up to 4 mm in width. This is consistent with a subdural hematoma. This was not seen on examination performed one day earlier. There is no intraparenchymal hemorrhage identified. There is no evidence of acute territorial cerebral or cerebellar infarction. There is mild cerebral atrophy. There is mild to moderate microvascular ischemic disease. There is calcification of the cavernous segments of the carotid arteries. There is no depressed skull fracture. There is a small mucosal retention cyst within the posterior aspect of the left maxillary sinus. The mastoid air cells are clear. The ocular lenses are surgically absent. Cervical spine: There is straightening and reversal of the normal cervical lordosis. Vertebral body heights are relatively preserved. There is severe degenerative change at C5-C6 characterized by intervertebral disc space narrowing, endplate sclerosis and osteophytosis. The prevertebral soft tissue is within normal limits. Posterior elements remain normally aligned. The C1-C2 relationship is maintained. The dens is intact. There are emphysematous changes at the lung apices. IMPRESSION: There is a new hyperdense extra-axial collection along the left paramedian aspect of the anterior falx consistent with a subdural hematoma. There is no acute cervical spine injury. There is degenerative change throughout the cervical spine, most severe at C5-C6. The above findings were discussed with Dr. Le Hendrix at 4:18 PM on 06/30/2016.
--- NOTE | 2016-06-30 17:52 | Event Note ---
Event Note Event Note: This patient attempted to get out of bed and tripped. She was found lying on her face with a follow up head CT showing a subdural hematoma. The patient feels well without any visual loss, headache, motor or speech deficit. We will leave this patient off all anticoagulation including IV heparin for 48 hours and will then plan on starting Pradaxa and aspirin 81mg daily as a platelet inhibitor.
--- NOTE | 2016-06-30 17:52 | Cons- Hematology ---
General Information and HPI Consulting Request Date of Consult: 06/30/16 Requested By: LIZ CABRALES PhD,LEATHA Montaño Reason for Consult: arterial thrombus Source of Information: patient, old records Exam Limitations: no limitations History of Present Illness: Ms. Veloz is an 86-year-old female with atrial fibrillation on warfarin who presents with sudden onset of right arm pain. She has never had anything like this prior. She states the pain was severe. She states it worsened to loss of movement in the hands, numbness, and cold. On admission, she was evaluated with CTA which demonstrated focal occlusion of the distal brachial artery There is reconstitution of the proximal radial artery via collateralization, but there is also an abrupt occlusion of the radial artery in the mid to distal third of the forearm. A second embolus is likely. There is a weakly opacified ulnar artery, secondary to the brachial occlusion. She was admitted and started on heparin drip. Vascular surgery has seen patient and has taken her to undergo a right brachial artery embolectomy. This evening she fell and suffered a laceration to her upper left lip. CT demonstrated a new hyperdense extra-axial collection along the left paramedian aspect of the anterior falx consistent with a subdural hematoma. Allergies/Medications Allergies: Coded Allergies: No Known Drug Allergies (06/29/16) Home Med List: Amlodipine (Norvasc) 2.5 MG TABLET 1 TAB PO DAILY D (Reported) Levothyroxine Sodium (Synthroid) 100 MCG TABLET 1 TAB PO DAILY THYROID ( Reported) Lisinopril 20 MG TABLET 1 TAB PO DAILY HTN (Reported) Metoprolol Succinate 100 MG TAB.ER.24H 1 TAB PO DAILY HTN (Reported) Simvastatin (Zocor*) 20 MG TABLET 1 TAB PO DAILY CHOLESTEROL (Reported) Warfarin Sodium (Coumadin) 5 MG TABLET 1 TAB PO 3X/WEEK HEART HEALTH ( Reported) Warfarin Sodium (Coumadin) 2.5 MG TABLET 1 TAB PO WED/SUN HEART HEALTH ( Reported) Current Medications: Current Medications Sig/James Start time Last Medication Dose Route Stop Time Status Admin Acetaminophen 650 MG Q6P PRN 06/30 1345 AC PO Acetaminophen 650 MG Q6P PRN 06/29 2000 DC PO Amlodipine Besylate 2.5 MG DAILY 07/01 1000 AC PO Amlodipine Besylate 2.5 MG DAILY 06/30 1000 DC PO Atorvastatin Calcium 20 MG 1700 06/30 1700 DC PO Atorvastatin Calcium 20 MG 1700 06/30 1700 AC PO Heparin Sodium 25,000 UNIT Q24H 06/30 1345 DC (Porcine) IV Sodium Chloride 500 ML Heparin Sodium 25,000 UNIT Q24H 06/29 2000 DC (Porcine) IV Sodium Chloride 500 ML Heparin Sodium 0 .STK-MED ONE 06/29 1914 DC (Porcine) .ROUTE Heparin Sodium 5,000 UNIT ONCE ONE 06/29 1815 DC 06/29 (Porcine) IV 06/29 181 1930 Heparin Sodium 25,000 UNIT ONCE ONE 06/29 1815 DC 06/29 (Porcine) IV 06/30 1414 1930 Sodium Chloride 500 ML Levothyroxine Sodium 0.1 MG DAILY AC 07/01 0700 AC PO Levothyroxine Sodium 0.1 MG DAILY AC 06/30 0700 DC 06/30 PO 0536 Lisinopril 20 MG DAILY 07/01 1000 AC PO Lisinopril 20 MG DAILY 06/30 1000 DC PO Magnesium Oxide 400 MG ONE ONE 06/30 1200 DC 06/30 PO 06/30 1201 1346 Metoprolol Succinate 100 MG DAILY 07/01 1000 AC PO Metoprolol Succinate 100 MG DAILY 06/30 1000 DC 06/30 PO 1010 Oxycodone HCl 5 MG Q6P PRN 06/30 1345 AC PO Oxycodone HCl 5 MG Q6H PRN 06/29 2000 DC PO Potassium Chloride 10 MEQ ONCE ONE 06/30 1200 DC 06/30 PO 06/30 1201 1346 Review of Systems Review of Systems Constitutional: Denies: chills, fever, weakness. EENTM: Denies: blurred vision, double vision, visual changes, epistaxis. Cardiovascular: Denies: chest pain. Respiratory: Reports: short of breath (stable baseline). Genitourinary: Denies: discharge, dysuria. Musculoskeletal: Reports: neck pain. Skin: Reports: see HPI. Neurological/Psychological: Denies: confusion. Hematologic/Endocrine: Reports: bruising, bleeding. Immunologic/Allergic: Denies: lymphadenopathy. 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 Home Who Do You Live With? child Services at Home: None Smoking Status: Never Smoked ETOH Use: occasional use Illicit Drug Use: denies illicit drug use Functional Ability ADLs Independent: dressing, eating, toileting, bathing. Exam & Diagnostic Data Vital Signs and I&O Vital Signs Date Time Temp Pulse Resp B/P Pulse O2 O2 Flow FiO2 Ox Delivery Rate 06/30 1611 98.4 92 20 120/70 97 06/30 1348 97.8 66 20 140/80 96 Room Air 06/30 1010 93 138/78 06/30 0730 97.6 70 20 160/70 96 Room Air 06/29 2354 98.1 71 20 118/62 96 Room Air 06/29 2141 97.8 76 20 140/80 97 06/29 2003 97.8 79 18 142/79 95 Room Air Intake & Output 06/30 1600 06/30 0800 06/30 0000 Intake Total 1143.2 480 260 Output Total 350 350 Balance 1143.2 130 -90 Intake, Blood 250 Product Intake, IV 183.2 180 60 Intake, Oral 960 50 200 Number 0 1 0 Bowel Movements Output, Urine 350 350 Patient 78.188 kg Weight Physical Exam General Appearance: well developed/nourished, no apparent distress, awake Head: laceration to the left upper lip Eyes: Bilateral: PERRL. Ears, Nose, Throat: normal ENT inspection Neck: neck collar in place Respiratory: normal breath sounds, chest non-tender, no respiratory distress, quiet respiration, lungs clear Cardiovascular: tachycardia, systolic murmur, irregularly irregular Gastrointestinal: normal bowel sounds, soft, non-tender, no organomegaly Extremities: Right arm: dressing distal to antecubital space is c/d/i, hematoma noted Skin: warm/dry Last 48 Hours of Lab Results: Laboratory Tests 06/30 06/30 06/30 1200 1000 0826 Chemistry Sodium (137 - 145 mmol/L) 136 L Potassium (3.5 - 5.1 mmol/L) 3.9 Chloride (98 - 107 mmol/L) 100 Carbon Dioxide (22 - 30 mmol/L) 27 Anion Gap (5 - 16) 9 BUN (7 - 17 mg/dL) 15 Creatinine (0.5 - 1.0 mg/dL) 0.9 Estimated GFR (>60 ml/min) 59 L BUN/Creatinine Ratio (7 - 25 %) 16.7 Magnesium (1.6 - 2.3 mg/dL) 1.6 Coagulation PT (9.4 - 12.5 SEC) 19.8 H INR (0.90 - 1.19) 1.90 H APTT Cancelled Hematology CBC w Diff NO MAN DIFF REQ WBC (4.8 - 10.8 /CUMM) 5.6 RBC (4.20 - 5.40 /CUMM) 3.99 L Hgb (12.0 - 16.0 G/DL) 12.8 Hct (37 - 47 %) 37.7 MCV (81.0 - 99.0 FL) 94.6 MCH (27.0 - 31.0 PG) 32.0 H RDW (11.5 - 14.5 %) 13.6 Plt Count (130 - 400 /CUMM) 223 MPV (7.4 - 10.4 FL) 9.1 Gran % (42.2 - 75.2 %) 55.9 Lymphocytes % (20.5 - 51.1 %) 30.2 Monocytes % (1.7 - 9.3 %) 7.1 Eosinophils % (0 - 5 %) 6.4 H Basophils % (0.0 - 2.0 %) 0.4 Absolute Granulocytes (1.4 - 6.5 /CUMM) 3.1 Absolute Lymphocytes (1.2 - 3.4 /CUMM) 1.7 Absolute Monocytes (0.10 - 0.60 /CUMM) 0.4 Absolute Eosinophils (0.0 - 0.7 /CUMM) 0.4 Absolute Basophils (0.0 - 0.2 /CUMM) 0 PUBS MCHC (33.0 - 37.0 G/DL) 33.8 06/30 06/30 06/29 0600 0300 2126 Coagulation APTT (25 - 37 SEC) > 120 *H Other Body Source Stool Lactoferrin Cancelled Urines Urine Osmolality Cancelled Ur Random Creatinine Cancelled Ur Random Sodium Cancelled Ur Random Potassium Cancelled Fraction Sodium Excret Cancelled 06/298 1236 Chemistry Sodium (137 - 145 mmol/L) 131 L 132 L Potassium (3.5 - 5.1 mmol/L) 3.9 4.0 Chloride (98 - 107 mmol/L) 96 L 92 L Carbon Dioxide (22 - 30 mmol/L) 28 28 Anion Gap (5 - 16) 8 12 BUN (7 - 17 mg/dL) 14 18 H Creatinine (0.5 - 1.0 mg/dL) 0.9 0.9 Estimated GFR (>60 ml/min) 59 L 59 L BUN/Creatinine Ratio (7 - 25 %) 15.6 20.0 Glucose (65 - 99 mg/dL) 112 H Serum Osmolality (285 - 295 MOSM/KG) 282 L Calcium (8.4 - 10.2 mg/dL) 9.7 Total Bilirubin (0.2 - 1.3 mg/dL) 0.7 AST (14 - 36 U/L) 25 ALT (9 - 52 U/L) 25 Alkaline Phosphatase (<127 U/L) 52 Troponin I (< 0.11 ng/ml) < 0.01 Total Protein (6.3 - 8.2 g/dL) 6.7 Albumin (3.5 - 5.0 g/dL) 3.8 Globulin (1.9 - 4.2 gm/dL) 2.9 Albumin/Globulin Ratio (1.1 - 2.2 %) 1.3 Coagulation PT (9.4 - 12.5 SEC) 28.0 H INR (0.90 - 1.19) 2.69 H Hematology CBC w Diff NO MAN DIFF REQ NO MAN DIFF REQ WBC (4.8 - 10.8 /CUMM) 5.4 4.8 RBC (4.20 - 5.40 /CUMM) 3.83 L 3.95 L Hgb (12.0 - 16.0 G/DL) 12.1 12.5 Hct (37 - 47 %) 36.3 L 37.0 MCV (81.0 - 99.0 FL) 94.8 93.7 MCH (27.0 - 31.0 PG) 31.6 H 31.5 H RDW (11.5 - 14.5 %) 13.2 13.2 Plt Count (130 - 400 /CUMM) 220 223 MPV (7.4 - 10.4 FL) 7.9 7.8 Gran % (42.2 - 75.2 %) 48.2 60.1 Lymphocytes % (20.5 - 51.1 %) 34.7 24.5 Monocytes % (1.7 - 9.3 %) 11.3 H 10.0 H Eosinophils % (0 - 5 %) 5.2 H 4.4 Basophils % (0.0 - 2.0 %) 0.6 1.0 Absolute Granulocytes (1.4 - 6.5 /CUMM) 2.6 2.9 Absolute Lymphocytes (1.2 - 3.4 /CUMM) 1.9 1.2 Absolute Monocytes (0.10 - 0.60 /CUMM) 0.6 0.5 Absolute Eosinophils (0.0 - 0.7 /CUMM) 0.3 0.2 Absolute Basophils (0.0 - 0.2 /CUMM) 0 0 PUBS MCHC (33.0 - 37.0 G/DL) 33.4 33.7 06/29 1230 Coagulation PT (9.4 - 12.5 SEC) 25.0 H INR (0.90 - 1.19) 2.40 H APTT (25 - 37 SEC) 50 H Imaging/Other Studies: CT head/spine 06/30/2016: There is a new hyperdense extra-axial collection along the left paramedian aspect of the anterior falx consistent with a subdural hematoma. There is no acute cervical spine injury. There is degenerative change throughout the cervical spine, most severe at C5-C6. Upper extremity CTA 06/29/2016: 1. Focal occlusion of the distal brachial artery. Given the abrupt change in opacification, a thrombus or embolus is suspected. 2. Reconstitution of the proximal radial artery via collateralization, but there is also an abrupt occlusion of the radial artery in the mid to distal third of the forearm. A second embolus is likely. 3. Weakly opacified ulnar artery, secondary to the brachial occlusion. Consider conventional angiogram to further evaluate and for possible treatment. 4. Emphysema with incidental pulmonary nodule. Recommend non-urgent follow up chest CT. Assessment/Plan Assessment: Ms. Veloz is an 86-year-old female with atrial fibrillation on warfarin and HTN who presents with right upper extremity arterial thrombus. She was placed on heparin drip and is now status post embolectomy. She was reported therapeutic on warfarin and has been well controlled over the years. She has not missed any dosing. Given her arterial nature of her thrombus, she will likely need antiplatelet in addition to anticoagulation. With the thrombus on warfarin, it is reasonable to switch her to a different anticoagulant for atrial fibrillation. Options include dabigatran, apixaban, rivaroxaban. Dabigatran does have a reversal agent for bleeding. Given her fall and now SDH, it is reasonable to have neurosurgery onboard. She should be carefully anticoagulated when safe. Heparin may be the best option at the moment. Recommendations: 1. Consider addition of antiplatelet therapy, please discuss with vascular surgery 2. Can switch to new anticoagulant such as dabigatran 3. Neurosurgery evaluation of new subdural hematoma and anticoagulation 4. Hypercoagulopathy work up would be limited in the acute setting with heparin and recent embolectomy 5. Monitor closely for mental status changes Problem List: 1. Arterial occlusion 2. Atrial fibrillation Other Findings/Comments: Please call [phone] with any questions or concerns. Consult Acknowledgment - Thank you for your consult request.
[2016-06-30 18:00] VITALS: BP 160/80
--- NOTE | 2016-06-30 19:43 | PN- Vascular Surgery ---
Subjective Subjective: s/p right upper extremity brachial thrombectomy. Events of today noted. Patient now with subdural hematoma seen on CT head. Per cardiology note, will be off IV heparin x 48 hours and Aspirin/Pradaxa will be started if no further intracranial pathology. Patient without complaints of headache or visual changes. Denies numbness or tingling to right arm. Objective Vital Signs and I&Os Vital Signs Date Time Temp Pulse Resp B/P Pulse O2 O2 Flow FiO2 Ox Delivery Rate 06/30 1840 70 186/86 06/30 1839 70 186/86 06/30 1800 99.0 81 20 160/80 95 Room Air 06/30 1611 98.4 92 20 120/70 97 06/30 1530 97.8 125 20 160/80 06/30 1348 97.8 66 20 140/80 96 Room Air 06/30 1010 93 138/78 06/30 0730 97.6 70 20 160/70 96 Room Air 06/29 2354 98.1 71 20 118/62 96 Room Air 06/29 2141 97.8 76 20 140/80 97 06/29 2003 97.8 79 18 142/79 95 Room Air Intake & Output 06/30 1600 06/30 0800 06/30 0000 06/29 1600 06/29 0800 06/29 0000 Intake Total 1143.2 480 260 Output Total 350 350 Balance 1143.2 130 -90 Intake, Blood 250 Product Intake, IV 183.2 180 60 Intake, Oral 960 50 200 Number 0 1 0 Bowel Movements Output, Urine 350 350 Patient 172 lb 200 lb Weight Physical Exam: Gen: AAOx3 in NAD Cor: S1+S2+ Irregularly irregular. Rate controlled. Lungs: CTA katt Abd: soft, NT, ND, +BS x4 Ext: RUE with small to moderate sized tissue mass suggesting a hematoma underneath antecubital incision. Palpable radial and ulnar pulse identified to right arm. Ecchymosis demarcated with pen. Sensation/motor exam grossly intact. Current Medications: Current Medications Sig/James Start time Last Medication Dose Route Stop Time Status Admin Acetaminophen 650 MG Q6P PRN 06/30 1345 AC PO Acetaminophen 650 MG Q6P PRN 06/29 2000 DC PO Amlodipine Besylate 2.5 MG DAILY 07/01 1000 AC 06/30 PO 1839 Amlodipine Besylate 2.5 MG DAILY 06/30 1000 DC PO Atorvastatin Calcium 20 MG 1700 06/30 1700 DC PO Atorvastatin Calcium 20 MG 1700 06/30 1700 AC 06/30 PO 1839 Fentanyl Citrate 200 MCG .STK-MED ONE 06/30 1029 DC IM 06/30 1030 Heparin Sodium 25,000 UNIT Q24H 06/30 1345 DC (Porcine) IV Sodium Chloride 500 ML Heparin Sodium 25,000 UNIT Q24H 06/29 2000 DC (Porcine) IV Sodium Chloride 500 ML Heparin Sodium 25,000 UNIT ONCE ONE 06/29 1815 DC 06/29 (Porcine) IV 06/30 1414 1930 Sodium Chloride 500 ML Levothyroxine Sodium 0.1 MG DAILY AC 07/01 0700 AC PO Levothyroxine Sodium 0.1 MG DAILY AC 06/30 0700 DC 06/30 PO 0536 Lisinopril 20 MG DAILY 07/01 1000 AC 06/30 PO 1840 Lisinopril 20 MG DAILY 06/30 1000 DC PO Magnesium Oxide 400 MG ONE ONE 06/30 1200 DC 06/30 PO 06/30 1201 1346 Metoprolol Succinate 100 MG DAILY 07/01 1000 AC PO Metoprolol Succinate 100 MG DAILY 06/30 1000 DC 06/30 PO 1010 Oxycodone HCl 5 MG Q6P PRN 06/30 1345 AC PO Oxycodone HCl 5 MG Q6H PRN 06/29 2000 DC PO Potassium Chloride 10 MEQ ONCE ONE 06/30 1200 DC 06/30 PO 06/30 1201 1346 Results Last 48 Hours of Labs: Laboratory Tests 06/30 06/30 06/30 1937 1200 1000 Coagulation PT Pending INR Pending APTT Pending Cancelled Hematology CBC w Diff NO MAN DIFF REQ WBC (4.8 - 10.8 /CUMM) 5.6 RBC (4.20 - 5.40 /CUMM) 3.99 L Hgb (12.0 - 16.0 G/DL) 12.8 Hct (37 - 47 %) 37.7 MCV (81.0 - 99.0 FL) 94.6 MCH (27.0 - 31.0 PG) 32.0 H RDW (11.5 - 14.5 %) 13.6 Plt Count (130 - 400 /CUMM) 223 MPV (7.4 - 10.4 FL) 9.1 Gran % (42.2 - 75.2 %) 55.9 Lymphocytes % (20.5 - 51.1 %) 30.2 Monocytes % (1.7 - 9.3 %) 7.1 Eosinophils % (0 - 5 %) 6.4 H Basophils % (0.0 - 2.0 %) 0.4 Absolute Granulocytes (1.4 - 6.5 /CUMM) 3.1 Absolute Lymphocytes (1.2 - 3.4 /CUMM) 1.7 Absolute Monocytes (0.10 - 0.60 /CUMM) 0.4 Absolute Eosinophils (0.0 - 0.7 /CUMM) 0.4 Absolute Basophils (0.0 - 0.2 /CUMM) 0 PUBS MCHC (33.0 - 37.0 G/DL) 33.8 06/30 06/30 06/30 06/29 0826 0600 0300 2126 Chemistry Sodium (137 - 145 mmol/L) 136 L Potassium (3.5 - 5.1 mmol/L) 3.9 Chloride (98 - 107 mmol/L) 100 Carbon Dioxide (22 - 30 mmol/L) 27 Anion Gap (5 - 16) 9 BUN (7 - 17 mg/dL) 15 Creatinine (0.5 - 1.0 mg/dL) 0.9 Estimated GFR (>60 ml/min) 59 L BUN/Creatinine Ratio (7 - 25 %) 16.7 Magnesium (1.6 - 2.3 mg/dL) 1.6 Coagulation PT (9.4 - 12.5 SEC) 19.8 H INR (0.90 - 1.19) 1.90 H APTT (25 - 37 SEC) > 120 *H Other Body Source Stool Lactoferrin Cancelled Urines Urine Osmolality Cancelled Ur Random Creatinine Cancelled Ur Random Sodium Cancelled Ur Random Potassium Cancelled Fraction Sodium Excret Cancelled 06/29 1236 Chemistry Sodium (137 - 145 mmol/L) 131 L 132 L Potassium (3.5 - 5.1 mmol/L) 3.9 4.0 Chloride (98 - 107 mmol/L) 96 L 92 L Carbon Dioxide (22 - 30 mmol/L) 28 28 Anion Gap (5 - 16) 8 12 BUN (7 - 17 mg/dL) 14 18 H Creatinine (0.5 - 1.0 mg/dL) 0.9 0.9 Estimated GFR (>60 ml/min) 59 L 59 L BUN/Creatinine Ratio (7 - 25 %) 15.6 20.0 Glucose (65 - 99 mg/dL) 112 H Serum Osmolality (285 - 295 MOSM/KG) 282 L Calcium (8.4 - 10.2 mg/dL) 9.7 Total Bilirubin (0.2 - 1.3 mg/dL) 0.7 AST (14 - 36 U/L) 25 ALT (9 - 52 U/L) 25 Alkaline Phosphatase (<127 U/L) 52 Troponin I (< 0.11 ng/ml) < 0.01 Total Protein (6.3 - 8.2 g/dL) 6.7 Albumin (3.5 - 5.0 g/dL) 3.8 Globulin (1.9 - 4.2 gm/dL) 2.9 Albumin/Globulin Ratio (1.1 - 2.2 %) 1.3 Coagulation PT (9.4 - 12.5 SEC) 28.0 H INR (0.90 - 1.19) 2.69 H Hematology CBC w Diff NO MAN DIFF REQ NO MAN DIFF REQ WBC (4.8 - 10.8 /CUMM) 5.4 4.8 RBC (4.20 - 5.40 /CUMM) 3.83 L 3.95 L Hgb (12.0 - 16.0 G/DL) 12.1 12.5 Hct (37 - 47 %) 36.3 L 37.0 MCV (81.0 - 99.0 FL) 94.8 93.7 MCH (27.0 - 31.0 PG) 31.6 H 31.5 H RDW (11.5 - 14.5 %) 13.2 13.2 Plt Count (130 - 400 /CUMM) 220 223 MPV (7.4 - 10.4 FL) 7.9 7.8 Gran % (42.2 - 75.2 %) 48.2 60.1 Lymphocytes % (20.5 - 51.1 %) 34.7 24.5 Monocytes % (1.7 - 9.3 %) 11.3 H 10.0 H Eosinophils % (0 - 5 %) 5.2 H 4.4 Basophils % (0.0 - 2.0 %) 0.6 1.0 Absolute Granulocytes (1.4 - 6.5 /CUMM) 2.6 2.9 Absolute Lymphocytes (1.2 - 3.4 /CUMM) 1.9 1.2 Absolute Monocytes (0.10 - 0.60 /CUMM) 0.6 0.5 Absolute Eosinophils (0.0 - 0.7 /CUMM) 0.3 0.2 Absolute Basophils (0.0 - 0.2 /CUMM) 0 0 PUBS MCHC (33.0 - 37.0 G/DL) 33.4 33.7 06/29 1230 Coagulation PT (9.4 - 12.5 SEC) 25.0 H INR (0.90 - 1.19) 2.40 H APTT (25 - 37 SEC) 50 H Assessment/Plan Assessment/Plan A: 86 year old female with Afib historically on Coumadin admitted on 06/29/16 with an acute arterial occlusion of the right upper extremity now s/p RUE thrombectomy complicated by small to moderate hematoma. Hospital course complicated subdural hematoma s/p fall while attempting to ambulate while wearing ALPS. AVSS. Plan: Monitor RUE hematoma. Pressure dressing applied. Coagulation studies need to be checked. F/U INR. 2u FFP should be given- discussed with Dr. Shelley with Neurosurgery regarding this. Patient to remain NPO. F/U CT head at 9:30pm and early tomorrow morning to evaluate SDH. Neurovascular checks to RUE q1h- order changed.
[2016-06-30 20:23] LABS: PT 17.8 SEC (9.4-12.5); PTT 40 SEC (25-37)
--- NOTE | 2016-06-30 21:30 | ULTRASOUND REPORT ---
EXAMINATION: US RETROPERITONEAL LIMITED (AORTA) CLINICAL INFORMATION: Arterial thrombus without source.. COMPARISON: None available. TECHNIQUE: Grayscale, color Doppler and spectral Doppler evaluation of the abdominal aorta. FINDINGS: The measurements of the aorta in maximum AP and transverse dimensions respectively are as follows: Proximal: 2.3 cm AP by 2.7 cm TV. Mid: 2.3 cm AP by 2.5 cm TV. Distal: 2.2 cm AP by 2.0 cm TV. The measurements of the common iliac arteries in maximum AP dimension are as follows: Right Common Iliac Artery: 1.5 cm, borderline ectatic. Left Common Iliac Artery: 1.1 cm. IMPRESSION: There is no abdominal aortic aneurysm..
--- NOTE | 2016-06-30 22:30 | CT SCAN REPORT ---
EXAMINATION: CT HEAD WITHOUT CONTRAST CLINICAL INFORMATION: Small subdural hematoma following fall. Evaluate for interval changes. COMPARISON: CT head without contrast 06/30/2016 at 3:37 PM. TECHNIQUE: Contiguous axial imaging was performed from the skull base to vertex without intravenous administration of contrast. DLP: 743 mGy-cm. FINDINGS: Noncontrast CT imaging of the brain is again notable for an acute subdural hematoma along the anterior falx cerebri visualized measuring approximately 4 mm in maximum transverse diameter, not significantly changed in size or volume relative to the prior examination. No additional extra-axial fluid collections are identified. Redemonstrated age-appropriate generalized parenchymal volume loss with proportional prominence of the sulci and ventricles. No intracranial mass, mass effect or new abnormal extra-axial fluid collections are identified. There are no focal areas of hypoattenuation in a vascular distribution to suggest acute transcortical ischemia. Areas of hypoattenuation within the periventricular and deep cortical white matter are nonspecific but could reflect sequela of mild chronic microvascular ischemia. No acute calvarial abnormality. Evaluation of the paranasal sinuses and mastoid air cells is again notable for a small mucous retention cyst within the left maxillary sinus. The remaining imaged paranasal sinuses and mastoid air cells are well aerated. IMPRESSION: 1. Stable appearance of the brain. Stable 4 mm acute subdural hematoma along the falx cerebri. No new extra-axial fluid collections are identified. 2. Generalized parenchymal volume loss and sequela of mild chronic microvascular ischemia.
[2016-07-01] VITALS: BP 132/80
--- NOTE | 2016-07-01 05:19 | PN- Vascular Surgery ---
Subjective Subjective: POD #1 s/p RUE thrombectomy due to acute arterial occlusion. Hospital course complicated by SDH after patient attempted to ambulate while wearing ALPS. Repeat CT scan of head last night revealed stable 4mm SDH. CT head pending for this morning. Currently, patient denies numbness or tingling in her RUE. Resting comfortably in bed. Denies CP/SOB, N/V, F/C, headache. Objective Vital Signs and I&Os Vital Signs Date Time Temp Pulse Resp B/P Pulse O2 O2 Flow FiO2 Ox Delivery Rate 07/01 0214 95 Nasal 1.0L Cannula 07/01 0000 96 Nasal 1.0L Cannula 07/01 0000 98.7 68 18 132/80 96 Nasal 1.0L Cannula 06/30 2000 92 Room Air Room Air 06/30 1840 70 186/86 06/30 1839 70 186/86 06/30 1800 99.0 81 20 160/80 95 Room Air 06/30 1611 98.4 92 20 120/70 97 06/30 1530 97.8 125 20 160/80 06/30 1348 97.8 66 20 140/80 96 Room Air 06/30 1010 93 138/78 06/30 0730 97.6 70 20 160/70 96 Room Air Intake & Output 07/01 0800 07/01 0000 06/30 1600 06/30 0800 06/30 0000 06/29 1600 Intake Total 0 1143.2 480 260 Output Total 250 350 350 Balance -250 1143.2 130 -90 Intake, Blood 250 Product Intake, IV 0 183.2 180 60 Intake, Oral 0 960 50 200 Number 0 0 1 0 Bowel Movements Output, Urine 250 350 350 Patient 172 lb 200 lb Weight Physical Exam: Gen: AAOx3 in NAD Cor: S1+S2+ Lungs: CTA katt Abd: soft, NT, ND, +BS x4 Ext: RUE with palpable radial and ulnar artery. Hand warm. Sensation/motor exam grossly intact. Pressure dressing removed to RUE incision. Dressing C/D/ I. Some lateral spread to ecchymosis noted and demarcated. Results Recent Imaging Studies: EXAM TYPE: CAT - CT HEAD WO IV CONTRAST EXAMINATION: CT HEAD WITHOUT CONTRAST CLINICAL INFORMATION: Small subdural hematoma following fall. Evaluate for interval changes. COMPARISON: CT head without contrast 06/30/2016 at 3:37 PM. TECHNIQUE: Contiguous axial imaging was performed from the skull base to vertex without intravenous administration of contrast. DLP: 743 mGy-cm. FINDINGS: Noncontrast CT imaging of the brain is again notable for an acute subdural hematoma along the anterior falx cerebri visualized measuring approximately 4 mm in maximum transverse diameter, not significantly changed in size or volume relative to the prior examination. No additional extra-axial fluid collections are identified. Redemonstrated age-appropriate generalized parenchymal volume loss with proportional prominence of the sulci and ventricles. No intracranial mass, mass effect or new abnormal extra-axial fluid collections are identified. There are no focal areas of hypoattenuation in a vascular distribution to suggest acute transcortical ischemia. Areas of hypoattenuation within the periventricular and deep cortical white matter are nonspecific but could reflect sequela of mild chronic microvascular ischemia. No acute calvarial abnormality. Evaluation of the paranasal sinuses and mastoid air cells is again notable for a small mucous retention cyst within the left maxillary sinus. The remaining imaged paranasal sinuses and mastoid air cells are well aerated. IMPRESSION: 1. Stable appearance of the brain. Stable 4 mm acute subdural hematoma along the falx cerebri. No new extra-axial fluid collections are identified. 2. Generalized parenchymal volume loss and sequela of mild chronic microvascular ischemia. DICTATED BY: VALERIO MCGRATH MD DATE/TIME DICTATED:06/30/162213 THROAT CUTTER:JAVIER DATE/TIME TRANSCRIBED:06/30/162213 CONFIDENTIAL, DO NOT COPY WITHOUT APPROPRIATE AUTHORIZATION. <Electronically signed in Other Vendor System> SIGNED BY: VALERIO MCGRATH MD 06/30/16 268 Assessment/Plan Assessment/Plan A: 86 year old female with Afib admitted on 06/29/16 with RUE acute arterial occlusion now POD #1 s/p thrombectomy. Hospital course complicated by 4mm subdural hematoma. Remains off anticoagulation at the moment. Plan: F/U am head CT. Continue to hold anticoagulation. Neurovascular checks q1h to RUE. Pressure dressing reapplied. F/U am CBC/INR.
[2016-07-01 06:30] LABS: ABSOLUTE BASOPHIL COUNT 0 /CUMM (0.0-0.2); ABSOLUTE EOSINOPHIL COUNT 0.3 /CUMM (0.0-0.7); ABSOLUTE GRANULOCYTE CT 2.7 /CUMM (1.4-6.5); ABSOLUTE LYMPH COUNT 1.6 /CUMM (1.2-3.4); ABSOLUTE MONOCYTE COUNT 0.6 /CUMM (0.10-0.60); BASOPHIL % 0.7 % (0.0-2.0); GRANULOCYTE % 52.1 % (42.2-75.2); MEAN CORPUSCULAR HGB 31.8 PG (27.0-31.0); MEAN CORPUSCULAR HGB CONC 33.7 G/DL (33.0-37.0); MEAN CORPUSCULAR VOLUME 94.3 FL (81.0-99.0); MEAN PLATELET VOLUME 8.4 FL (7.4-10.4); PLATELET COUNT 189 /CUMM (130-400); RBC DISTRIBUTION WIDTH 13.7 % (11.5-14.5); RED BLOOD CELL CT 3.33 /CUMM (4.20-5.40); WHITE BLOOD CELL COUNT 5.2 /CUMM (4.8-10.8)
[2016-07-01 06:36] LABS: PT 17.1 SEC (9.4-12.5)
[2016-07-01 06:38] LABS: HEMATOCRIT 31.4 % (37-47)
--- NOTE | 2016-07-01 07:31 | CT SCAN REPORT ---
EXAMINATION: CT HEAD WITHOUT CONTRAST CLINICAL INFORMATION: Follow-up subdural hematoma COMPARISON: Previous head CT scans June 29 and 06/30/2016 TECHNIQUE: Contiguous axial imaging was performed from the skull base to vertex without intravenous administration of contrast. DLP: 601 mGy-cm. FINDINGS: There is no change in the small subdural hematoma adjacent to the left anterior falx and left anterior frontal lobe. The ventricles and extra-axial CSF spaces are appropriate. There is nonspecific periventricular white matter disease. No mass, mass effect or infarct is seen. Review at bone windows is unremarkable. No skull fracture is seen. There are minimal inflammatory changes in the left maxillary sinus. IMPRESSION: No change in small subdural hematoma adjacent to the left anterior falx compared to yesterday's exam.
[2016-07-01 07:56] VITALS: BP 140/70
--- NOTE | 2016-07-01 08:57 | ECHOCARDIOGRAM REPORT ---
HEIDE CERON Age: 86 : 1930 Gender: F Exam Date: 06/30/2016 12:53 Exam Location: [address] Ht (in): 70 Wt (lb): 172 BSA: 1.97 BP: 138 / 78 Ordering Physician: ISMAEL GLORIA MD Referring Physician: ISMAEL GLORIA MD Technologist: Cristian Mata [facility] Room Number: 189-1 Indications: SOURCE OF EMBOLUS Rhythm: Atrial fibrillation Technical Quality: limited study FINDINGS Left Ventricle Normal left ventricular size, wall thickness and systolic function with no obvious regional wall motion abnormalities. The ejection fraction is visually estimated at 60%. Right Ventricle The right ventricle is normal in size and function. Right Atrium The right atrium is normal in size. Left Atrium The left atrium is mildly enlarged. The interatrial septum is intact. Mitral Valve The mitral valve demonstrates mild posterior annular calcification. There is mild mitral regurgitation. Aortic Valve Thickened and sclerotic aortic valve with decreased leaflet excursion and moderate to severe aortic stenosis. There is trace aortic regurgitation. Tricuspid Valve The tricuspid valve is normal in structure and function. There is moderate tricuspid regurgitation. Pulmonary artery systolic pressure is mildly elevated to 39mmHg. Pulmonic Valve Structurally normal pulmonic valve. There is no pulmonic regurgitation. Pericardium Normal pericardium without effusion. No pleural effusion. Great Vessels Normal aortic root dimension. The aortic arch and great vessels are not well seen. CONCLUSIONS 1. Normal EF of 60%. 2. Mild left atrial enlargment. 3. Mild mitral regurgitation. 4. Moderate tricuspid regurgitation. 5. Moderate to severe aortic stenosis. 6. Mild pulmonary hypertension. Parveen Nguyen M.D. (Electronically Signed) Final Date: 01 July 2016 08:56 MEASUREMENTS (Male / Female) Normal Values 2D ECHO LV Diastolic Diameter PLAX 5.0 cm 4.2 - 5.9 / 3.9 - 5.3 cm LV Systolic Diameter PLAX 2.9 cm 2.1 - 4.0 cm LV Fractional Shortening PLAX 42.0 % 25 - 46 % LV Ejection Fraction 2D Teich 72.8 % IVS Diastolic Thickness 0.9 cm LVPW Diastolic Thickness 1.0 cm LV Relative Wall Thickness 0.4 RV Internal Dim ED PLAX 2.7 cm 1.9 - 3.8 cm LVOT Diameter 2.1 cm Aortic Root Diameter 2.9 cm LA Systolic Diameter LX 4.1 cm 3.0 - 4.0 / 2.7 - 3.8 cm Ascending Aorta Diameter 3.0 cm DOPPLER AV Peak Velocity 260.0 cm/s AV Peak Gradient 27.0 mmHg AV Mean Velocity 183.0 cm/s AV Mean Gradient 16.0 mmHg AV Velocity Time Integral 70.2 cm LVOT Peak Velocity 48.9 cm/s LVOT Peak Gradient 1.0 mmHg LVOT Mean Velocity 31.2 cm/s LVOT Mean Gradient 0.0 mmHg LVOT Velocity Time Integral 13.6 cm LVOT Stroke Volume 47.1 cm AV Area Cont Eq vti 0.7 cm AV Area Cont Eq pk 0.7 cm MV Peak Velocity 124.0 cm/s MV Peak Gradient 6.2 mmHg MV Mean Velocity 64.1 cm/s MV Mean Gradient 2.0 mmHg Mitral E Point Velocity 124.0 cm/s Mitral A Point Velocity 36.5 cm/s Mitral E to A Ratio 3.4 MV PHT Velocity 135.0 cm/s MV Deceleration Candler 565.0 cm/s MV Pressure Half Time 71.7 ms MV Area PHT 3.1 cm MV Deceleration Time 225.0 ms TR Peak Velocity 271.0 cm/s TR Peak Gradient 29.4 mmHg Right Atrial Pressure 10.0 mmHg Pulmonary Artery Systolic Pressu 39.4 mmHg Right Ventricular Systolic Press 39.4 mmHg
--- NOTE | 2016-07-01 12:35 | Cons- Neurosurgical ---
General Information and HPI Consulting Request Date of Consult: 07/01/16 Requested By: LIZ CABRALES PhD,LEATHA Montaño Reason for Consult: Parafalcine subdural hematoma Source of Information: patient, family, EMS Exam Limitations: no limitations History of Present Illness: 86-year-old right-handed [place] lady who fell in the sudden onset of right arm numbness on the day of admission was found to have an embolization of an artery to her arm and underwent vascular surgery. She was on heparin after having been on Coumadin at home long-standing. Yesterday she attempted to get up to go to the bathroom caught her legs and wires tripped and fell hitting her head. A CAT scan showed a very small parafalcine subdural on the left side, frontal. She denies any severe headache she denies any weakness she denies any nausea or vomiting Allergies/Medications Allergies: Coded Allergies: No Known Drug Allergies (06/29/16) Home Med List: Amlodipine (Norvasc) 2.5 MG TABLET 1 TAB PO DAILY D (Reported) Levothyroxine Sodium (Synthroid) 100 MCG TABLET 1 TAB PO DAILY THYROID ( Reported) Lisinopril 20 MG TABLET 1 TAB PO DAILY HTN (Reported) Metoprolol Succinate 100 MG TAB.ER.24H 1 TAB PO DAILY HTN (Reported) Simvastatin (Zocor*) 20 MG TABLET 1 TAB PO DAILY CHOLESTEROL (Reported) Warfarin Sodium (Coumadin) 5 MG TABLET 1 TAB PO 3X/WEEK HEART HEALTH ( Reported) Warfarin Sodium (Coumadin) 2.5 MG TABLET 1 TAB PO WED/SUN HEART HEALTH ( Reported) Current Medications: Current Medications Sig/James Start time Last Medication Dose Route Stop Time Status Admin Acetaminophen 650 MG Q6P PRN 06/30 1345 AC 06/30 PO 2123 Acetaminophen 650 MG Q6P PRN 06/29 2000 DC PO Amlodipine Besylate 2.5 MG DAILY 07/01 1000 AC 07/01 PO 1033 Amlodipine Besylate 2.5 MG DAILY 06/30 1000 DC PO Atorvastatin Calcium 20 MG 1700 06/30 1700 DC PO Atorvastatin Calcium 20 MG 1700 06/30 1700 AC 06/30 PO 1839 Heparin Sodium 25,000 UNIT Q24H 06/30 1345 DC (Porcine) IV Sodium Chloride 500 ML Heparin Sodium 25,000 UNIT Q24H 06/29 2000 DC (Porcine) IV Sodium Chloride 500 ML Heparin Sodium 25,000 UNIT ONCE ONE 06/29 1815 DC 06/29 (Porcine) IV 06/30 1414 1930 Sodium Chloride 500 ML Levothyroxine Sodium 0.1 MG DAILY AC 07/01 0700 AC 07/01 PO 0704 Levothyroxine Sodium 0.1 MG DAILY AC 06/30 0700 DC 06/30 PO 0536 Lisinopril 20 MG DAILY 07/01 1000 AC 07/01 PO 1032 Lisinopril 20 MG DAILY 06/30 1000 DC PO Magnesium Sulfate 1 GM Q2H 07/01 0945 AC 07/01 Dextrose/Water 100 ML IV 07/01 1344 1033 Metoprolol Succinate 100 MG DAILY 07/01 1000 AC 07/01 PO 1033 Metoprolol Succinate 100 MG DAILY 06/30 1000 DC 06/30 PO 1010 Oxycodone HCl 5 MG Q6P PRN 06/30 1345 AC PO Oxycodone HCl 5 MG Q6H PRN 06/29 2000 DC PO Past History Medical History Blood Transfusion Hx: Yes Type of Reaction: none Neurological: NONE EENT: NONE Cardiovascular: AFIB, hypertension, hyperlipidemia Respiratory: NONE Gastrointestinal: NONE Hepatic: NONE Renal: NONE Musculoskeletal: NONE Psychiatric: NONE Endocrine: hypothyroidism Blood Disorders: NONE Cancer(s): NONE PSYCHOLOGIST INDUSTRIAL ORGANIZATIONAL/Reproductive: NONE Other Medical Hx: None apart from childbirth Surgical History Pertinent Surgical History: non-contributory Psychosocial History Where Do You Live? Home Who Do You Live With? child Services at Home: None Primary Language: Barbadian Smoking Status: Never Smoked ETOH Use: occasional use Illicit Drug Use: denies illicit drug use Living Will? unknown Power of Patient Accounts Clerk/HCP? unknown Name of POA/HCP: unknown Functional Ability ADLs Independent: dressing, eating, toileting, bathing. Ambulation: independent IADLs Independent: medication admin. Employment History Employment: Retired Profession/Employer: none Retired? yes Review of Systems Review of Systems Constitutional: Reports: no symptoms. EENTM: Reports: no symptoms. Cardiovascular: Reports: see HPI. Respiratory: Reports: see HPI. GI: Reports: no symptoms. Genitourinary: Reports: no symptoms. Musculoskeletal: Reports: see HPI. Skin: Reports: see HPI. Neurological/Psychological: Denies: no symptoms. Hematologic/Endocrine: Reports: see HPI. Immunologic/Allergic: Reports: see HPI. All Other Systems: Reviewed and Negative Exam & Diagnostic Data Vital Signs and I&O Vital Signs Date Time Temp Pulse Resp B/P Pulse O2 O2 Flow FiO2 Ox Delivery Rate 07/01 1033 70 150/78 07/01 1033 70 150/78 07/01 1032 68 150/70 07/01 0800 Nasal 1.0L Cannula 07/01 0756 98.2 64 20 140/70 94 Nasal 1.0L Cannula 07/01 0400 96 Nasal 1.0L Cannula 07/01 0214 95 Nasal 1.0L Cannula 07/01 0000 96 Nasal 1.0L Cannula 07/01 0000 98.7 68 18 132/80 96 Nasal 1.0L Cannula 06/30 2000 92 Room Air Room Air 06/30 1840 70 186/86 06/30 1839 70 186/86 06/30 1800 99.0 81 20 160/80 95 Room Air 06/30 1611 98.4 92 20 120/70 97 06/30 1530 97.8 125 20 160/80 06/30 1348 97.8 66 20 140/80 96 Room Air Intake & Output 07/01 1600 07/01 0800 07/01 0000 06/30 1600 06/30 0800 06/30 0000 Intake Total 350 0 1143.2 480 260 Output Total 150 250 350 350 Balance 200 -250 1143.2 130 -90 Intake, Blood 320 250 Product Intake, IV 30 0 183.2 180 60 Intake, Oral 0 960 50 200 Number 0 0 0 1 0 Bowel Movements Output, Urine 150 250 350 350 Patient 172 lb 172 lb Weight Physical Exam: Awake alert oriented 3 Cranial nerve symmetrical. Full extraocular motion range. No asymmetry of cranial nerves II through XII apart from decreased hearing bilaterally cranial nerve VIII No dysmetria no nystagmus No pronator drift Toes downgoing Physical Exam General Appearance: well developed/nourished Head: normal appearance Gastrointestinal: soft Rectal: deferred Back: no vertebral tenderness Extremities: normal inspection Neurologic/Psych: no motor/sensory deficits Cranial Nerves: hearing deficit (R), hearing deficit (L) Reflexes: 2+: bicep (R), bicep (L), tricep (L), tricep (L), knee (R), knee (L), ankle (R), ankle (L). Skin: normal color Lymphatic: no anterior cervical kasi Reproductive: deferred Pelvic: deferred Other Physical Findings: Evidence of surgery Last 24 Hours of Labs: Laboratory Tests 07/01 06/30 06/30 0505 2300 1937 Chemistry Sodium (137 - 145 mmol/L) 136 L Potassium (3.5 - 5.1 mmol/L) 3.8 Chloride (98 - 107 mmol/L) 101 Carbon Dioxide (22 - 30 mmol/L) 28 Anion Gap (5 - 16) 7 BUN (7 - 17 mg/dL) 12 Creatinine (0.5 - 1.0 mg/dL) 0.9 Estimated GFR (>60 ml/min) 59 L BUN/Creatinine Ratio (7 - 25 %) 13.3 Magnesium (1.6 - 2.3 mg/dL) 1.5 L Coagulation PT (9.4 - 12.5 SEC) 17.1 H 17.8 H INR (0.90 - 1.19) 1.64 H 1.70 H APTT (25 - 37 SEC) Cancelled 40 H Hematology CBC w Diff NO MAN DIFF REQ WBC (4.8 - 10.8 /CUMM) 5.2 RBC (4.20 - 5.40 /CUMM) 3.33 L Hgb (12.0 - 16.0 G/DL) 10.6 L Hct (37 - 47 %) 31.4 L MCV (81.0 - 99.0 FL) 94.3 MCH (27.0 - 31.0 PG) 31.8 H RDW (11.5 - 14.5 %) 13.7 Plt Count (130 - 400 /CUMM) 189 MPV (7.4 - 10.4 FL) 8.4 Gran % (42.2 - 75.2 %) 52.1 Lymphocytes % (20.5 - 51.1 %) 30.3 Monocytes % (1.7 - 9.3 %) 11.9 H Eosinophils % (0 - 5 %) 5.0 Basophils % (0.0 - 2.0 %) 0.7 Absolute Granulocytes (1.4 - 6.5 /CUMM) 2.7 Absolute Lymphocytes (1.2 - 3.4 /CUMM) 1.6 Absolute Monocytes (0.10 - 0.60 /CUMM) 0.6 Absolute Eosinophils (0.0 - 0.7 /CUMM) 0.3 Absolute Basophils (0.0 - 0.2 /CUMM) 0 PUBS MCHC (33.0 - 37.0 G/DL) 33.7 Imaging Results: CT scan shows small parafalcine subdural which has not changed him to a films. Other Results: Sukhdeep Coma Scale 1515 Assessment/Plan Assessment/Plan Nonsurgical All seen left frontal subdural hematoma which has not worsened She is not a surgical candidate at this point Postoperative hold off on any anticoagulations four-week Repeat scan should be obtained tomorrow and if benign she can move floor discharge after that would depend on the medical service Copies To: LIZ CABRALES PhD,LEATHA Montaño Consult Acknowledgment - Thank you for your consult request. Attending Review Statement Attending Statement Attending Statement: examined this patient
--- NOTE | 2016-07-01 15:07 | PN- Cardiology ---
Subjective Subjective: The patient reports that she is feeling well. No chest pain. No palpitations. No diaphoresis. No lightheadedness or dizziness. Objective Vital Signs and I&Os Vital Signs Date Time Temp Pulse Resp B/P Pulse O2 O2 Flow FiO2 Ox Delivery Rate 07/01 1033 70 150/78 07/01 1033 70 150/78 07/01 1032 68 150/70 07/01 0800 Nasal 1.0L Cannula 07/01 0756 98.2 64 20 140/70 94 Nasal 1.0L Cannula 07/01 0400 96 Nasal 1.0L Cannula 07/01 0214 95 Nasal 1.0L Cannula 07/01 0000 96 Nasal 1.0L Cannula 07/01 0000 98.7 68 18 132/80 96 Nasal 1.0L Cannula 06/30 2000 92 Room Air Room Air 06/30 1840 70 186/86 06/30 1839 70 186/86 06/30 1800 99.0 81 20 160/80 95 Room Air 06/30 1611 98.4 92 20 120/70 97 06/30 1530 97.8 125 20 160/80 Intake & Output 07/01 1600 07/01 0800 07/01 0000 06/30 1600 06/30 0800 06/30 0000 Intake Total 1190 350 0 1143.2 480 260 Output Total 300 150 250 350 350 Balance 890 200 -250 1143.2 130 -90 Intake, Blood 320 250 Product Intake, IV 230 30 0 183.2 180 60 Intake, Oral 960 0 960 50 200 Number 0 0 0 0 1 0 Bowel Movements Output, Urine 300 150 250 350 350 Patient 172 lb 172 lb Weight Physical Exam: General: WD/ WN female in NAD; alert and oriented x 3 HEENT: NC/AT, PERRL, EOMI, clear oropharynx Neck: no JVD, transmitted carotid bruits Heart: irregularly irregular with 3/6 systolic murmur at the LLSB, 2/6 systolic murmur at the apex and 2/6 systolic and diasolic murmur at the RUSB Lungs: clear bilaterally Abdomen: soft, NT, +ve bowel sounds Extremities: no edema, Right hand has minimal coolness of the index finger at the present time. There is a 1+ right radial pulse and a 2+ right ulnar pulse and normal pulses noted in the right brachial and cephalic arteries. Neuro: non-focal, normal muscle strength Current Medications: Current Medications Sig/James Start time Last Medication Dose Route Stop Time Status Admin Acetaminophen 650 MG Q6P PRN 06/30 1345 AC 06/30 PO 2123 Amlodipine Besylate 2.5 MG DAILY 07/01 1000 AC 07/01 PO 1033 Atorvastatin Calcium 20 MG 1700 06/30 1700 DC PO Atorvastatin Calcium 20 MG 1700 06/30 1700 AC 06/30 PO 1839 Heparin Sodium 25,000 UNIT Q24H 06/30 1345 DC (Porcine) IV Sodium Chloride 500 ML Levothyroxine Sodium 0.1 MG DAILY AC 07/01 0700 AC 07/01 PO 0704 Lisinopril 20 MG DAILY 07/01 1000 AC 07/01 PO 1032 Magnesium Sulfate 1 GM Q2H 07/01 0945 DC 07/01 Dextrose/Water 100 ML IV 07/01 1344 1232 Metoprolol Succinate 100 MG DAILY 07/01 1000 AC 07/01 PO 1033 Oxycodone HCl 5 MG Q6P PRN 06/30 1345 AC PO Results Last 48 Hrs of Labs/Mics: Laboratory Tests 07/01/16 0505: Anion Gap 7, Estimated GFR 59 L, BUN/Creatinine Ratio 13.3, Magnesium 1.5 L, PT 17.1 H, INR 1.64 H, CBC w Diff NO MAN DIFF REQ, RBC 3.33 L, MCV 94.3, MCH 31.8 H, RDW 13.7, MPV 8.4, Gran % 52.1, Lymphocytes % 30.3, Monocytes % 11.9 H , Eosinophils % 5.0, Basophils % 0.7, Absolute Granulocytes 2.7, Absolute Lymphocytes 1.6, Absolute Monocytes 0.6, Absolute Eosinophils 0.3, Absolute Basophils 0, PUBS MCHC 33.7 06/30/16 2300: APTT Cancelled 06/30/16 1937: PT 17.8 H, INR 1.70 H, APTT 40 H 06/30/16 1200: APTT Cancelled 06/30/16 1000: CBC w Diff NO MAN DIFF REQ, RBC 3.99 L, MCV 94.6, MCH 32.0 H, RDW 13.6, MPV 9.1, Gran % 55.9, Lymphocytes % 30.2, Monocytes % 7.1, Eosinophils % 6.4 H, Basophils % 0.4, Absolute Granulocytes 3.1, Absolute Lymphocytes 1.7, Absolute Monocytes 0.4, Absolute Eosinophils 0.4, Absolute Basophils 0, PUBS MCHC 33.8 06/30/16 0826: Anion Gap 9, Estimated GFR 59 L, BUN/Creatinine Ratio 16.7, Magnesium 1.6, PT 19.8 H, INR 1.90 H 06/30/16 0600: Stool Lactoferrin Cancelled 06/30/16 0300: APTT > 120 *H 06/29/162125: Urine Color Cancelled, Urine Clarity Cancelled, Urine pH Cancelled, Ur Specific [place] Cancelled, Urine Protein Cancelled, Urine Ketones Cancelled, Urine Nitrite Cancelled, Urine Bilirubin Cancelled, Urine Urobilinogen Cancelled, Ur Leukocyte Esterase Cancelled, Ur Microscopic Cancelled, Urine Hemoglobin Cancelled, Urine Glucose Cancelled 06/29/162125: Urine Osmolality Cancelled, Ur Random Creatinine Cancelled, Ur Random Sodium Cancelled, Ur Random Potassium Cancelled, Fraction Sodium Excret Cancelled 06/29/162027: Anion Gap 8, Estimated GFR 59 L, BUN/Creatinine Ratio 15.6, Serum Osmolality 282 L, PT 28.0 H, INR 2.69 H, CBC w Diff NO MAN DIFF REQ, RBC 3.83 L, MCV 94.8, MCH 31.6 H, RDW 13.2, MPV 7.9, Gran % 48.2, Lymphocytes % 34.7, Monocytes % 11.3 H, Eosinophils % 5.2 H, Basophils % 0.6, Absolute Granulocytes 2.6, Absolute Lymphocytes 1.9, Absolute Monocytes 0.6, Absolute Eosinophils 0.3, Absolute Basophils 0, PUBS MCHC 33.4 Recent Imaging Studies: Head CT: No change in small subdural hematoma adjacent to the left anterior falx compared to yesterday's exam. Echocardiogram: 1. Normal EF of 60%. 2. Mild left atrial enlargment. 3. Mild mitral regurgitation. 4. Moderate tricuspid regurgitation. 5. Moderate to severe aortic stenosis. 6. Mild pulmonary hypertension. Assessment/Plan Assessment/Plan Assessment: 1. Brachial and radial artery thrombosis, status post thrombectomy 2. Subdural hematoma Plan: * Cardiac medications. * No anticoagulation until cleared by neurosurgery Continue telemetry? Yes
[2016-07-01 16:00] VITALS: BP 132/70
--- NOTE | 2016-07-01 17:14 | PN- Housestaff ---
Subjective Follow-up For: Right upper extremity arterial thrombosis status post thrombectomy Subdural hematoma Subjective: Patient seen and examined. She is seen lying flat in bed resting comfortably, she appears to be in no acute distress. She is complaining of mild pain at the site where the vascular intervention took place yesterday but admits that the swelling has somewhat reduced. She denies any blurred/double vision, slurred speech, confusion. Otherwise she denies any headache, fever, chills, chest pain, palpitations, shortness of breath, nausea, vomiting, diarrhea. No overnight events reported. Review of Systems Constitutional: Reports: see HPI. Objective Last 24 Hrs of Vital Signs/I&O Vital Signs Date Time Temp Pulse Resp B/P Pulse O2 O2 Flow FiO2 Ox Delivery Rate 07/01 1033 70 150/78 07/01 1033 70 150/78 07/01 1032 68 150/70 07/01 0800 Nasal 1.0L Cannula 07/01 0756 98.2 64 20 140/70 94 Nasal 1.0L Cannula 07/01 0400 96 Nasal 1.0L Cannula 07/01 0214 95 Nasal 1.0L Cannula 07/01 0000 96 Nasal 1.0L Cannula 07/01 0000 98.7 68 18 132/80 96 Nasal 1.0L Cannula 06/30 2000 92 Room Air Room Air 06/30 1840 70 186/86 06/30 1839 70 186/86 06/30 1800 99.0 81 20 160/80 95 Room Air Intake & Output 07/01 1600 07/01 0800 07/01 0000 Intake Total 1190 350 0 Output Total 300 150 250 Balance 890 200 -250 Intake, Blood 320 Product Intake, IV 230 30 0 Intake, Oral 960 0 Number 0 0 0 Bowel Movements Output, Urine 300 150 250 Patient 78.188 kg Weight Physical Exam General Appearance: Alert, Oriented X3, Cooperative, No Acute Distress Other Physical Findings: General - Well Developed, Well Nourished elderly woman in no acute distress HEENT - NCAT, PERRL, EOMI, anicteric sclera Cardio - S1, S2 w/o murmurs/gallops/rubs Resp - CTA bilaterally w/o wheezing/rhochi/crackles GI - Non-tender, non-distended abdomen, Bowel sounds present Neuro - Awake and alert, oriented to person place and time, spontaneous movement of all 4 extremities, sensation intact, cranial nerves grossly intact Extremities: -RUE: Brachial/radial/ulnar pulses intact, hematoma located distal to the antecubital fossa with overlying ecchymosis demonstrating reduced swelling than previous day without any obvious active bleeding Current Medications: Current Medications Sig/James Start time Last Medication Dose Route Stop Time Status Admin Acetaminophen 650 MG Q6P PRN 06/30 1345 AC 06/30 PO 2123 Amlodipine Besylate 2.5 MG DAILY 07/01 1000 AC 07/01 PO 1033 Atorvastatin Calcium 20 MG 1700 06/30 1700 DC PO Atorvastatin Calcium 20 MG 1700 06/30 1700 AC 07/01 PO 1614 Levothyroxine Sodium 0.1 MG DAILY AC 07/01 0700 AC 07/01 PO 0704 Lisinopril 20 MG DAILY 07/01 1000 AC 07/01 PO 1032 Magnesium Sulfate 1 GM Q2H 07/01 0945 DC 07/01 Dextrose/Water 100 ML IV 07/01 1344 1232 Metoprolol Succinate 100 MG DAILY 07/01 1000 AC 07/01 PO 1033 Oxycodone HCl 5 MG Q6P PRN 06/30 1345 AC PO Last 24 Hrs of Lab/Markus Results Last 24 Hrs of Labs/Mics: Laboratory Tests 07/01/16 0505: Anion Gap 7, Estimated GFR 59 L, BUN/Creatinine Ratio 13.3, Magnesium 1.5 L, PT 17.1 H, INR 1.64 H, CBC w Diff NO MAN DIFF REQ, RBC 3.33 L, MCV 94.3, MCH 31.8 H, RDW 13.7, MPV 8.4, Gran % 52.1, Lymphocytes % 30.3, Monocytes % 11.9 H , Eosinophils % 5.0, Basophils % 0.7, Absolute Granulocytes 2.7, Absolute Lymphocytes 1.6, Absolute Monocytes 0.6, Absolute Eosinophils 0.3, Absolute Basophils 0, PUBS MCHC 33.7 06/30/16 2300: APTT Cancelled 06/30/16 1937: PT 17.8 H, INR 1.70 H, APTT 40 H Microbiology 06/30 1745 UPPER RESP: Surveillance Culture - RECD 06/30 1745 GI: Surveillance Culture - RECD Assessment/Plan Assessment: Hematoma located on patient's right upper extremity demonstrates improvement over yesterday while maintained with a pressure dressing. Sensation and pulses in the extremity are intact in addition to his her strength and free range of movement of the extremity. Neurological exam demonstrates a pleasant woman oriented to person place and time in no acute distress with intact sensation and spontaneous movements of all 4 extremities with no obvious neurological deficits. Neurosurgery was consulted and it was determined that patient will require [address] scan in 24 hours to assess for evolution of the subdural hematoma and otherwise will be to be held off anticoagulation for 1 week. She will need to follow-up with neurosurgery as an outpatient for further monitoring. She is considered medically stable for discharge from the ICU and will be transferred to the general medicine floor when a bed is available. Problem list: -Arterial thrombosis of the right upper extremity status post thrombectomy -Mechanical fall resulting in subdural hematoma -History of atrial fibrillation, anticoagulation held Cardiovascular: It is unclear why patient developed an arterial thrombus/embolus while being maintained on Coumadin, it is possible she was subtherapeutic as she reports that often assessing her INR. Vascular surgery was consulted and patient was taken to the OR for a thrombectomy that was successful. She unfortunately sustained a mechanical fall because of the DVT prophylaxis cuffs attached her legs and suffered acute head trauma which was subsequently identified to result in a subdural hematoma. Neurosurgery was consulted and given her relatively benign neurological exam and small appearance of the hematoma serial CT scans were obtained all demonstrating a stable appearing hematoma. She is to be held off of anticoagulation for 1 week's time, or until cleared by neurosurgery. She will need to follow-up with neurosurgery as an outpatient for further management of the subdural hematoma. -Neuro checks -No anticoagulation for 1 week -Amlodipine 2.5 mg by mouth daily -Lisinopril 20 mg by mouth daily -Metoprolol XL 100 mg by mouth daily -Atorvastatin 20 mg by mouth daily -Cardiology consult following -Vascular surgery consult following -Hematology consult following -Neurosurgery consult following -Follow-up [address] head Pain plan: -Acetaminophen 650 mg by mouth every 6 hours as needed for pain 1-3 -Oxycodone 5 mg by mouth every 6 hours as needed for pain 4-6 Diet-heart healthy diet DVT prophylaxis-mechanical CODE STATUS-full code Problem List: 1. Arterial occlusion 2. Arterial occlusion due to thromboembolism 3. Atrial fibrillation 4. 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 Acute thrombosis of right upper extremity 7. Subdural hematoma Pain Ratin Pain Location: Right upper extremity Pain Goal: Pain 4 or less Pain Plan: As noted in plan Tomorrow's Labs & Rationales: Complete blood count ICU bundle INR
--- NOTE | 2016-07-01 18:35 | Event Note ---
Event Note Event Note: Around 6:30 PM patient had a 3.5 second positive on cardiac telemetry. Medication review demonstrated that patient takes metoprolol XL 100 mg daily, which may have caused this. This medication was held in light of these findings. Patient was seen and examined. She reports feeling fine and has no complaints. She denies any dizziness, lightheadedness, blurred/double vision, confusion, chest pain, palpitation, shortness of breath. Vital signs were within normal limits, heart rate on bedside monitor 50s/60s. EKG obtained demonstrated atrial fibrillation with no ST segment changes. Monitor patient for tachycardia and hypertension and consider alternative means for controlling these findings. Consult with cardiology when to resume this medication.
[2016-07-01 23:00] VITALS: BP 166/78
--- NOTE | 2016-07-02 06:28 | PN- Vascular Surgery ---
Subjective Subjective: Awake, alert Does not remember hitting her head No complaints overnight Denies headache or any other deficits Objective Vital Signs and I&Os Vital Signs Date Time Temp Pulse Resp B/P Pulse O2 O2 Flow FiO2 Ox Delivery Rate 07/02 0400 Room Air Room Air 07/02 0000 97 Room Air Room Air 07/01 2300 97.8 72 78 166/78 99 Room Air Room Air 07/01 2000 93 Room Air Room Air 07/01 1600 98.1 64 20 132/70 95 Room Air 07/01 1033 70 150/78 07/01 1033 70 150/78 07/01 1032 68 150/70 07/01 0800 Nasal 1.0L Cannula 07/01 0756 98.2 64 20 140/70 94 Nasal 1.0L Cannula Intake & Output 07/02 0800 07/02 0000 07/01 1600 07/01 0800 07/01 0000 06/30 1600 Intake Total 480 1190 350 0 1143.2 Output Total 300 150 250 Balance 480 890 200 -250 1143.2 Intake, Blood 320 Product Intake, IV 230 30 0 183.2 Intake, Oral 480 960 0 960 Number 1 0 0 0 0 Bowel Movements Output, Urine 300 150 250 Patient 172 lb Weight Physical Exam: vss, afebrile Neuro: EOMI, no blurred vision, no facial droop, no slurring, positive sensate with good 5/5 ALETHA all 4 extrermities RUE: hematoma at R Brachial cutdown site - soft, dopplerable pulses radial/ ulnar Assessment/Plan Assessment/Plan 86 yo female s/p RUE thrombectomy and complicated by a fall post op with sdh from a vascular standpoint, the hematoma is soft, recommend clean, dry dressing daily from a neuro standpoint, per Dr Shelley note of yesterday, fu head CT today, may restart anticoag in one week if stable
[2016-07-02 06:37] LABS: ABSOLUTE BASOPHIL COUNT 0 /CUMM (0.0-0.2); ABSOLUTE EOSINOPHIL COUNT 0.4 /CUMM (0.0-0.7); ABSOLUTE GRANULOCYTE CT 3.9 /CUMM (1.4-6.5); ABSOLUTE LYMPH COUNT 1.7 /CUMM (1.2-3.4); ABSOLUTE MONOCYTE COUNT 0.6 /CUMM (0.10-0.60); BASOPHIL % 0.3 % (0.0-2.0); EOSINOPHIL % 6.2 % (0-5); GRANULOCYTE % 57.9 % (42.2-75.2); HEMATOCRIT 33.4 % (37-47); MEAN CORPUSCULAR HGB 32.3 PG (27.0-31.0); MEAN CORPUSCULAR HGB CONC 34.3 G/DL (33.0-37.0); MEAN CORPUSCULAR VOLUME 94.4 FL (81.0-99.0); MEAN PLATELET VOLUME 8.3 FL (7.4-10.4); PLATELET COUNT 202 /CUMM (130-400); RBC DISTRIBUTION WIDTH 13.4 % (11.5-14.5); RED BLOOD CELL CT 3.54 /CUMM (4.20-5.40); WHITE BLOOD CELL COUNT 6.7 /CUMM (4.8-10.8)
[2016-07-02 06:41] LABS: PT 16.1 SEC (9.4-12.5)
[2016-07-02 08:00] VITALS: BP 138/76
--- NOTE | 2016-07-02 09:15 | CT SCAN REPORT ---
EXAMINATION: CT HEAD WITHOUT CONTRAST CLINICAL INFORMATION: Follow-up subdural hematoma COMPARISON: Previous head CT scans most recent from yesterday TECHNIQUE: Contiguous axial imaging was performed from the skull base to vertex without intravenous administration of contrast. DLP: 672 mGy-cm. FINDINGS: There is slight interval decrease in the small parafalcine subdural hematoma adjacent to the left frontal lobe compared to recent exams. No new hemorrhage is seen. The ventricles and extra-axial CSF spaces are prominent suggestive of mild generalized atrophy. There is mild nonspecific periventricular white matter disease. No mass, mass effect or infarct is seen. There is minimal inflammatory change in the left maxillary sinus. Review at bone windows is otherwise normal. No skull fracture is seen. IMPRESSION: Slight interval decrease in parafalcine subdural hematoma adjacent to the left frontal lobe compared to previous exams. No new hemorrhage is seen.
--- NOTE | 2016-07-02 10:38 | PN- Housestaff ---
Subjective Follow-up For: RUE arterial thrombosis S/P thrombectomy Subdural hematoma - remains stable Complaints: no complaints Tele-Events Since Last Visit: Patient found to have bradycardic and her metoprolol was discontinued yesterday. Today she is again found to be bradycardic in AF after discontinuing her metoprolol XL yesterday. Subjective: I saw and examined the patient today morning. she is lying comfortably on her chair. reports sleeping well. No significant overnight events. She denies any pain, nausea, vomiting. She is dizzy upon standing, and sitting from lying position and a little confused upon waking up this morning. Otherwise she denies any palpitations, chest pain, shortness of breath. She wants to go home. Review of Systems Constitutional: Reports: no symptoms. EENTM: Reports: no symptoms. Cardiovascular: Reports: no symptoms. Respiratory: Reports: no symptoms. Gastrointestinal: Reports: no symptoms. Comments: ROS negative except the above. Objective Last 24 Hrs of Vital Signs/I&O Vital Signs Date Time Temp Pulse Resp B/P Pulse O2 O2 Flow FiO2 Ox Delivery Rate 07/02 0911 88 138/76 07/02 0911 88 138/76 07/02 0800 98.6 70 18 138/76 97 Room Air 07/02 0400 Room Air Room Air 07/02 0000 97 Room Air Room Air 07/01 2300 97.8 72 78 166/78 99 Room Air Room Air 07/01 2000 93 Room Air Room Air 07/01 1600 98.1 64 20 132/70 95 Room Air Intake & Output 07/02 1600 07/02 0800 07/02 0000 Intake Total 120 480 Output Total Balance 120 480 Intake, Oral 120 480 Number 0 1 Bowel Movements Physical Exam General Appearance: Alert, Oriented X3, Cooperative Skin: No Rashes, significant bruising and dressing over the right forearm region. HEENT: Atraumatic, PERRLA, EOMI Neck: Supple, No JVD Cardiovascular: Normal S1, Normal S2, No Murmurs, irregularly irregular Lungs: Clear to Auscultation, Normal Air Movement Abdomen: Normal Bowel Sounds, Soft, No Tenderness Neurological: Normal Gait, Normal Speech, Strength at 5/5 X4 Ext, Normal Tone, Sensation Intact Extremities: No Clubbing, No Cyanosis Vascular: Pulses Symmetrical Current Medications: Current Medications Sig/James Start time Last Medication Dose Route Stop Time Status Admin Acetaminophen 650 MG Q6P PRN 06/30 1345 AC 06/30 PO 2123 Amlodipine Besylate 2.5 MG DAILY 07/01 1000 AC 07/02 PO 0911 Atorvastatin Calcium 20 MG 1700 06/30 1700 AC 07/01 PO 1614 Levothyroxine Sodium 0.1 MG DAILY AC 07/01 0700 AC 07/02 PO 0615 Lisinopril 20 MG DAILY 07/01 1000 AC 07/02 PO 0911 Magnesium Oxide 400 MG ONE ONE 07/02 0845 DC 07/02 PO 07/02 0846 0911 Magnesium Sulfate 1 GM ONCE ONE 07/02 0730 CAN Dextrose/Water 100 ML IV 07/02 1129 Magnesium Sulfate 1 GM Q2H 07/01 0945 DC 07/01 Dextrose/Water 100 ML IV 07/01 1344 1232 Metoprolol Succinate 100 MG DAILY 07/01 1000 DC 07/01 PO 1033 Oxycodone HCl 5 MG Q6P PRN 06/30 1345 AC PO Potassium Chloride 40 MEQ ONCE ONE 07/02 1045 DC PO 07/02 1046 Last 24 Hrs of Lab/Markus Results Last 24 Hrs of Labs/Mics: Laboratory Tests 07/02/16 0606: Anion Gap 9, Estimated GFR 59 L, Glucose 88, Calcium 9.6, Phosphorus 2.9, Magnesium 1.9, Total Bilirubin 0.9, AST 24, ALT 29, Albumin 3.4 L, PT 16.1 H, INR 1.54 H, CBC w Diff NO MAN DIFF REQ, RBC 3.54 L, MCV 94.4, MCH 32.3 H, RDW 13.4, MPV 8.3, Gran % 57.9, Lymphocytes % 25.9, Monocytes % 9.7 H, Eosinophils % 6.2 H, Basophils % 0.3, Absolute Granulocytes 3.9, Absolute Lymphocytes 1.7, Absolute Monocytes 0.6, Absolute Eosinophils 0.4, Absolute Basophils 0, PUBS MCHC 34.3 Assessment/Plan Assessment: Hematoma located on patient's right upper extremity demonstrates improvement over yesterday while maintained with a pressure dressing. Sensation and pulses in the extremity are intact in addition to his her strength and free range of movement of the extremity. Neurological exam demonstrates a pleasant woman oriented to person place and time in no acute distress with intact sensation and spontaneous movements of all 4 extremities with no obvious neurological deficits. Neurosurgery was consulted and it was determined that patient will require [address] scan in 24 hours to assess for evolution of the subdural hematoma and otherwise will be to be held off anticoagulation for 1 week. She will need to follow-up with neurosurgery as an outpatient for further monitoring. She is considered medically stable for discharge from the ICU and will be transferred to the general medicine floor when a bed is available. Problem list: -Arterial thrombosis of the right upper extremity status post thrombectomy -Mechanical fall resulting in subdural hematoma -History of atrial fibrillation, anticoagulation held Cardiovascular: It is unclear why patient developed an arterial thrombus/embolus while being maintained on Coumadin, it is possible she was subtherapeutic as she reports that often assessing her INR. Vascular surgery was consulted and patient was taken to the OR for a thrombectomy that was successful. She unfortunately sustained a mechanical fall because of the DVT prophylaxis cuffs attached her legs and suffered acute head trauma which was subsequently identified to result in a subdural hematoma. Neurosurgery was consulted and given her relatively benign neurological exam and small appearance of the hematoma serial CT scans were obtained all demonstrating a stable appearing hematoma. She is to be held off of anticoagulation for 1 week's time. She will need to follow-up with neurosurgery as an outpatient for further management of the subdural hematoma. * No anticoagulation for 1 week * Amlodipine 2.5 mg by mouth daily * Lisinopril 20 mg by mouth daily * Metoprolol XL 100 mg by mouth daily - held due to bradycardia, will consider restarting by tomorrow as per the heart rate. * Atorvastatin 20 mg by mouth daily * Cardiology consult following * cleared for discharge as per Neuro surgery * Hematology consult - recommended dabigatran as an anticoagulant. * Vascular surgery consult following - recommended defering anticoagulation for a week. * CT scan today shows interval decrease in hematoma size. Pain plan: * Acetaminophen 650 mg by mouth every 6 hours as needed for pain 1-3 * Oxycodone 5 mg by mouth every 6 hours as needed for pain 4-6 Diet-heart healthy diet DVT prophylaxis-mechanical CODE STATUS-full code Problem List: 1. Atrial fibrillation 2. Subdural hematoma 3. Acute thrombosis of right upper extremity Pain Ratin Pain Location: right forearm Pain Goal: Pain 4 or less Pain Plan: Tylenol Q6PRN Tomorrow's Labs & Rationales: CBC BEP
--- NOTE | 2016-07-02 11:31 | PN- Hematology ---
Subjective Subjective: She feels well without new symptoms. She had episodes of bradycardia overnight. She was asymptomatic. Review of Systems Cardiovascular: Denies: chest pain. Hematologic/Endocrine: Reports: bruising. All Other Systems: Reviewed and Negative Objective Vital Signs and I&Os Vital Signs Date Time Temp Pulse Resp B/P Pulse O2 O2 Flow FiO2 Ox Delivery Rate 07/02 0911 88 138/76 07/02 0911 88 138/76 07/02 0400 Room Air Room Air 07/02 0000 97 Room Air Room Air 07/01 2300 97.8 72 78 166/78 99 Room Air Room Air 07/01 2000 93 Room Air Room Air 07/01 1600 98.1 64 20 132/70 95 Room Air Intake & Output 07/02 1600 07/02 0800 07/02 0000 07/01 1600 07/01 0800 07/01 0000 Intake Total 800 913 0782 350 0 Output Total 300 150 250 Balance 120 480 890 200 -250 Intake, Blood 320 Product Intake, IV 230 30 0 Intake, Oral 120 480 960 0 Number 0 1 0 0 0 Bowel Movements Output, Urine 300 150 250 Patient 78.188 kg Weight Physical Exam: General Appearance: well developed/nourished, no apparent distress, awake Head: laceration to the left upper lip Cardiovascular: bradycardia, systolic murmur, irregularly irregular Gastrointestinal: soft, non-tender, no organomegaly Extremities: Right arm: dressing distal to antecubital space is c/d/i, hematoma noted Skin: warm/dry Current Medications: Current Medications Sig/James Start time Last Medication Dose Route Stop Time Status Admin Acetaminophen 650 MG Q6P PRN 06/30 1345 AC 06/30 PO 2123 Amlodipine Besylate 2.5 MG DAILY 07/01 1000 AC 07/02 PO 0911 Atorvastatin Calcium 20 MG 1700 06/30 1700 AC 07/01 PO 1614 Levothyroxine Sodium 0.1 MG DAILY AC 07/01 0700 AC 07/02 PO 0615 Lisinopril 20 MG DAILY 07/01 1000 AC 07/02 PO 0911 Magnesium Oxide 400 MG ONE ONE 07/02 0845 DC 07/02 PO 07/02 0846 0911 Magnesium Sulfate 1 GM ONCE ONE 07/02 0730 CAN Dextrose/Water 100 ML IV 07/02 1129 Magnesium Sulfate 1 GM Q2H 07/01 0945 DC 07/01 Dextrose/Water 100 ML IV 07/01 1344 1232 Metoprolol Succinate 100 MG DAILY 07/01 1000 DC 07/01 PO 1033 Oxycodone HCl 5 MG Q6P PRN 06/30 1345 AC PO Potassium Chloride 40 MEQ ONCE ONE 07/02 1045 DC PO 07/02 1046 Results Last 24 Hours of Lab Results: Laboratory Tests 07/02 06 Chemistry Sodium (137 - 145 mmol/L) 134 L Potassium (3.5 - 5.1 mmol/L) 3.8 Chloride (98 - 107 mmol/L) 96 L Carbon Dioxide (22 - 30 mmol/L) 29 Anion Gap (5 - 16) 9 BUN (7 - 17 mg/dL) 14 Creatinine (0.5 - 1.0 mg/dL) 0.9 Estimated GFR (>60 ml/min) 59 L Glucose (65 - 99 mg/dL) 88 Calcium (8.4 - 10.2 mg/dL) 9.6 Phosphorus (2.5 - 4.5 mg/dL) 2.9 Magnesium (1.6 - 2.3 mg/dL) 1.9 Total Bilirubin (0.2 - 1.3 mg/dL) 0.9 AST (14 - 36 U/L) 24 ALT (9 - 52 U/L) 29 Albumin (3.5 - 5.0 g/dL) 3.4 L Coagulation PT (9.4 - 12.5 SEC) 16.1 H INR (0.90 - 1.19) 1.54 H Hematology CBC w Diff NO MAN DIFF REQ WBC (4.8 - 10.8 /CUMM) 6.7 RBC (4.20 - 5.40 /CUMM) 3.54 L Hgb (12.0 - 16.0 G/DL) 11.4 L Hct (37 - 47 %) 33.4 L MCV (81.0 - 99.0 FL) 94.4 MCH (27.0 - 31.0 PG) 32.3 H RDW (11.5 - 14.5 %) 13.4 Plt Count (130 - 400 /CUMM) 202 MPV (7.4 - 10.4 FL) 8.3 Gran % (42.2 - 75.2 %) 57.9 Lymphocytes % (20.5 - 51.1 %) 25.9 Monocytes % (1.7 - 9.3 %) 9.7 H Eosinophils % (0 - 5 %) 6.2 H Basophils % (0.0 - 2.0 %) 0.3 Absolute Granulocytes (1.4 - 6.5 /CUMM) 3.9 Absolute Lymphocytes (1.2 - 3.4 /CUMM) 1.7 Absolute Monocytes (0.10 - 0.60 /CUMM) 0.6 Absolute Eosinophils (0.0 - 0.7 /CUMM) 0.4 Absolute Basophils (0.0 - 0.2 /CUMM) 0 PUBS MCHC (33.0 - 37.0 G/DL) 34.3 Recent Imaging Studies: CT head 07/02/2016 Slight interval decrease in parafalcine subdural hematoma adjacent to the left frontal lobe compared to previous exams. No new hemorrhage is seen. Assessment/Plan Assessment/Recommendations: Ms. Veloz is an 86-year-old female with atrial fibrillation on warfarin and HTN who presents with right upper extremity arterial thrombus. She is now status post embolectomy. Postprocedure was complicated by a mechanical fall and SDH. She has been off anticoagulation since that time. CTH have been showing some improvement in SDH. Given her arterial nature of her thrombus, she will likely need antiplatelet in addition to anticoagulation. With the thrombus on warfarin, it is reasonable to switch her to a different anticoagulant for atrial fibrillation. Options include dabigatran, apixaban, rivaroxaban. Dabigatran does have a reversal agent for bleeding. Recommendations: 1. Consider addition of antiplatelet therapy, please discuss with vascular surgery/cardiolgy 2. Can consider switch to new anticoagulant such as dabigatran 3. Hypercoagulopathy work up would be limited in the acute setting with heparin and recent embolectomy 4. Monitor closely for mental status changes Please call [phone] with any questions or concerns. Problem List: 1. Atrial fibrillation 2. Arterial occlusion due to thromboembolism 3. Subdural hematoma
--- NOTE | 2016-07-02 11:41 | PN- Neurosurgical ---
Subjective Subjective: no headache non focal exam CT improved ok to discharge Objective Vital Signs and I&Os Vital Signs Date Time Temp Pulse Resp B/P Pulse O2 O2 Flow FiO2 Ox Delivery Rate 07/02 0911 88 138/76 07/02 0911 88 138/76 07/02 0400 Room Air Room Air 07/02 0000 97 Room Air Room Air 07/01 2300 97.8 72 78 166/78 99 Room Air Room Air 07/01 2000 93 Room Air Room Air 07/01 1600 98.1 64 20 132/70 95 Room Air Intake & Output 07/02 1600 07/02 0800 07/02 0000 07/01 1600 07/01 0800 07/01 0000 Intake Total 900 886 7523 350 0 Output Total 300 150 250 Balance 120 480 890 200 -250 Intake, Blood 320 Product Intake, IV 230 30 0 Intake, Oral 120 480 960 0 Number 0 1 0 0 0 Bowel Movements Output, Urine 300 150 250 Patient 172 lb Weight Physical Exam: non focal Assessment/Plan Assessment/Plan resolving SDH d/c
[2016-07-02 16:00] VITALS: BP 120/78
--- NOTE | 2016-07-02 16:34 | PN- Cardiology ---
Subjective Subjective: The patient is noted to have a 3.5 second pause on telemetry. Metoprolol was held. She was continued to have episodes of slow ventricular rate. No rapid ventricular rate was noted. No chest pain. No palpitations. No shortness of breath. No diaphoresis. Objective Vital Signs and I&Os Vital Signs Date Time Temp Pulse Resp B/P Pulse O2 O2 Flow FiO2 Ox Delivery Rate 07/02 0911 88 138/76 07/02 0911 88 138/76 07/02 0800 98.6 70 18 138/76 97 Room Air 07/02 0400 Room Air Room Air 07/02 0000 97 Room Air Room Air 07/01 2300 97.8 72 78 166/78 99 Room Air Room Air 07/01 2000 93 Room Air Room Air Intake & Output 07/02 1600 07/02 0800 07/02 0000 07/01 1600 07/01 0800 07/01 0000 Intake Total 440 418 885 1959 350 0 Output Total 300 150 250 Balance 440 120 480 890 200 -250 Intake, Blood 320 Product Intake, IV 230 30 0 Intake, Oral 440 120 480 960 0 Number 0 1 0 0 0 Bowel Movements Output, Urine 300 150 250 Patient 172 lb Weight Physical Exam: General: WD/ WN female in NAD; alert and oriented x 3 HEENT: NC/AT, PERRL, EOMI, clear oropharynx Neck: no JVD, transmitted carotid bruits Heart: irregularly irregular with 3/6 systolic murmur at the LLSB, 2/6 systolic murmur at the apex and 2/6 systolic and diasolic murmur at the RUSB Lungs: clear bilaterally Abdomen: soft, NT, +ve bowel sounds Extremities: no edema, Right hand has minimal coolness of the index finger at the present time. There is a 1+ right radial pulse and a 2+ right ulnar pulse and normal pulses noted in the right brachial and cephalic arteries. Neuro: non-focal, normal muscle strength Current Medications: Current Medications Sig/James Start time Last Medication Dose Route Stop Time Status Admin Acetaminophen 650 MG Q6P PRN 06/30 1345 AC 06/30 PO 2123 Amlodipine Besylate 2.5 MG DAILY 07/01 1000 AC 07/02 PO 0911 Atorvastatin Calcium 20 MG 1700 06/30 1700 AC 07/01 PO 1614 Levothyroxine Sodium 0.1 MG DAILY AC 07/01 0700 AC 07/02 PO 0615 Lisinopril 20 MG DAILY 07/01 1000 AC 07/02 PO 0911 Magnesium Oxide 400 MG ONE ONE 07/02 0845 DC 07/02 PO 07/02 0846 0911 Magnesium Sulfate 1 GM ONCE ONE 07/02 0730 CAN Dextrose/Water 100 ML IV 07/02 1129 Metoprolol Succinate 100 MG DAILY 07/01 1000 DC 07/01 PO 1033 Oxycodone HCl 5 MG Q6P PRN 06/30 1345 AC PO Potassium Chloride 40 MEQ ONCE ONE 07/02 1045 DC 07/02 PO 07/02 1046 1403 Sodium Chloride 2 SPRAY BID PRN 07/02 1330 AC CHRISTAL Results Last 48 Hrs of Labs/Mics: Laboratory Tests 07/02/16 0606: Anion Gap 9, Estimated GFR 59 L, Glucose 88, Calcium 9.6, Phosphorus 2.9, Magnesium 1.9, Total Bilirubin 0.9, AST 24, ALT 29, Albumin 3.4 L, PT 16.1 H, INR 1.54 H, CBC w Diff NO MAN DIFF REQ, RBC 3.54 L, MCV 94.4, MCH 32.3 H, RDW 13.4, MPV 8.3, Gran % 57.9, Lymphocytes % 25.9, Monocytes % 9.7 H, Eosinophils % 6.2 H, Basophils % 0.3, Absolute Granulocytes 3.9, Absolute Lymphocytes 1.7, Absolute Monocytes 0.6, Absolute Eosinophils 0.4, Absolute Basophils 0, PUBS MCHC 34.3 07/01/16 0505: Anion Gap 7, Estimated GFR 59 L, BUN/Creatinine Ratio 13.3, Magnesium 1.5 L, PT 17.1 H, INR 1.64 H, CBC w Diff NO MAN DIFF REQ, RBC 3.33 L, MCV 94.3, MCH 31.8 H, RDW 13.7, MPV 8.4, Gran % 52.1, Lymphocytes % 30.3, Monocytes % 11.9 H , Eosinophils % 5.0, Basophils % 0.7, Absolute Granulocytes 2.7, Absolute Lymphocytes 1.6, Absolute Monocytes 0.6, Absolute Eosinophils 0.3, Absolute Basophils 0, PUBS MCHC 33.7 06/30/16 2300: APTT Cancelled 06/30/16 1937: PT 17.8 H, INR 1.70 H, APTT 40 H Microbiology 06/30 1745 UPPER RESP: Surveillance Culture - COMP 06/30 1745 GI: Surveillance Culture - COMP Assessment/Plan Assessment/Plan Assessment: 1. Brachial and radial artery thrombosis, status post thrombectomy 2. Subdural hematoma 3. Atrial fibrillation with slow ventricular rate and second pause Plan: * Hold metoprolol today. * Will consider starting the reduced dose of metoprolol tomorrow depending on heart rate. * Continue to monitor on telemetry. * No anticoagulation until cleared by neurosurgery * Axillary for discharge tomorrow morning. * Will downgrade to telemetry hold. Continue telemetry? Yes
[2016-07-03 04:55] LABS: ABSOLUTE BASOPHIL COUNT 0.1 /CUMM (0.0-0.2); ABSOLUTE EOSINOPHIL COUNT 0.5 /CUMM (0.0-0.7); ABSOLUTE GRANULOCYTE CT 2.3 /CUMM (1.4-6.5); ABSOLUTE LYMPH COUNT 2.1 /CUMM (1.2-3.4); ABSOLUTE MONOCYTE COUNT 0.8 /CUMM (0.10-0.60); BASOPHIL % 0.9 % (0.0-2.0); EOSINOPHIL % 8.4 % (0-5); HEMATOCRIT 31.5 % (37-47); MEAN CORPUSCULAR HGB 31.8 PG (27.0-31.0); MEAN CORPUSCULAR HGB CONC 33.7 G/DL (33.0-37.0); MEAN CORPUSCULAR VOLUME 94.4 FL (81.0-99.0); PLATELET COUNT 197 /CUMM (130-400); RBC DISTRIBUTION WIDTH 13.3 % (11.5-14.5); RED BLOOD CELL CT 3.33 /CUMM (4.20-5.40); WHITE BLOOD CELL COUNT 5.7 /CUMM (4.8-10.8)
[2016-07-03 05:00] LABS: PT 14.9 SEC (9.4-12.5)
--- NOTE | 2016-07-03 05:48 | PN- Vascular Surgery ---
Subjective Subjective: The patient seen this morning postoperatively day #3. She reports her pain is under adequate control and is relatively comfortable. She denies any numbness or tingling in her right upper extremity and just reports that it feels a little sore. She denied any chest pain, palpitations, or difficulty breathing. Per nursing there were no significant events overnight. Objective Vital Signs and I&Os Vital Signs Date Time Temp Pulse Resp B/P Pulse O2 O2 Flow FiO2 Ox Delivery Rate 07/03 0000 95 Room Air 07/03 0000 97.8 76 22 95 Room Air 07/02 1600 98.4 81 20 120/78 96 Room Air 07/02 0911 88 138/76 07/02 0911 88 138/76 07/02 08 98.6 70 18 138/76 97 Room Air Intake & Output 07/03 0000 07/02 1600 07/02 0000 07/01 1600 Intake Total 440 774 768 3217 Output Total 300 Balance 440 120 480 890 Intake, IV 230 Intake, Oral 440 120 480 960 Number 0 1 0 Bowel Movements Output, Urine 300 Patient 172 lb Weight Physical Exam: Gen.: Alert and in no obvious distress Skin: Warm and dry Extremities: Right upper extremity is warm with bounding radial pulse and good capillary refill. Gross motor and sensory are intact. Surgical incision is clean, dry, and intact without signs of infection. The luther-incisional hematoma is soft and stable without signs of expansion. Bilateral lower extremities are warm without calf tenderness or significant edema. Assessment/Plan Assessment/Plan Assessment: 86-year-old female status post right upper extremity cutdown and thrombectomy postoperative day #3. From a surgical standpoint the patient is progressing as expected, her pain is under adequate control and her upper extremity is well perfused. Postoperatively the patient did have a fall and sustained a small subdural hematoma which has been closely monitored and deemed stable per neurosurgery. Recommendations: Due to recent subdural hematoma that should be no anticoagulation for at least 1 week. Anticoagulation may be resumed once okay with neurosurgery which the patient should see in approximately one week for follow-up Daily dry dressing change to surgical site DVT prophylaxis with Alps Continue current pain regiment Discharged per primary team and follow-up in the office in one week
[2016-07-03 08:00] VITALS: BP 118/82
--- NOTE | 2016-07-03 08:22 | PN- Housestaff ---
Subjective Follow-up For: Arterial thrombosis S/P thrombectomy Stable subdural hematoma Bradycardia with 3.5sec pause Complaints: no complaints Tele-Events Since Last Visit: Richardson remains with HR of 70-80 through out the night. No signficant events overnight. Subjective: I saw and examined the patient today morning. She is alert and oriented X3, feels much better. Able to walk around and going to rest room by herself. No dizziness on walking/waking up. She denies any pain, fever, lightheadedness. Review of Systems Constitutional: Reports: no symptoms, see HPI. Comments: ROS negative except the above. Objective Last 24 Hrs of Vital Signs/I&O Vital Signs Date Time Temp Pulse Resp B/P Pulse O2 O2 Flow FiO2 Ox Delivery Rate 07/03 1014 79 118/82 07/03 1014 80 118/82 07/03 0800 Room Air 07/03 0800 97.0 77 22 118/82 94 Room Air Room Air / 0000 95 Room Air 07/03 0000 97.8 76 22 95 Room Air 07/02 1600 98.4 81 20 120/78 96 Room Air Intake & Output 07/03 1600 /02 0800 07/03 0000 Intake Total 100 Output Total Balance 100 Intake, Oral 100 Physical Exam General Appearance: Alert, Oriented X3, Cooperative, No Acute Distress Skin: dressing on the right forearm after the thrombectomy. Not tender to touch. Bruising evident. HEENT: Atraumatic, PERRLA, EOMI Neck: Supple, No JVD Cardiovascular: Normal S1, Normal S2, irregularly irregular Lungs: Clear to Auscultation, Normal Air Movement Abdomen: Normal Bowel Sounds, Soft, No Tenderness Neurological: Normal Gait, Normal Speech, Strength at 5/5 X4 Ext, Normal Tone, Sensation Intact Extremities: No Clubbing, No Cyanosis, No Edema Vascular: Pulses Symmetrical Current Medications: Current Medications Sig/James Start time Last Medication Dose Route Stop Time Status Admin Acetaminophen 650 MG Q6P PRN 06/30 1345 AC 06/30 PO 2123 Amlodipine Besylate 2.5 MG DAILY 07/01 1000 AC 07/03 PO 1014 Atorvastatin Calcium 20 MG 1700 06/30 1700 AC 07/02 PO 1730 Levothyroxine Sodium 0.1 MG DAILY AC 07/01 0700 AC 07/03 PO 0622 Lisinopril 20 MG DAILY 07/01 1000 AC 07/03 PO 1014 Magnesium Oxide 400 MG ONE ONE 07/03 0745 DC 07/03 PO 07/03 0746 1014 Oxycodone HCl 5 MG Q6P PRN 06/30 1345 AC PO Sodium Chloride 2 SPRAY BID PRN 07/02 1330 AC CHRISTAL Last 24 Hrs of Lab/Markus Results Last 24 Hrs of Labs/Mics: Laboratory Tests 07/03/16 0430: Anion Gap 9, Estimated GFR 52 L, Glucose 99, Calcium 9.6, Phosphorus 3.6, Magnesium 1.7, Total Bilirubin 0.6, AST 25, ALT 35, Albumin 3.1 L, PT 14.9 H, INR 1.42 H, CBC w Diff NO MAN DIFF REQ, RBC 3.33 L, MCV 94.4, MCH 31.8 H, RDW 13.3, MPV 8.0, Gran % 40.0 L, Lymphocytes % 36.5, Monocytes % 14.2 H, Eosinophils % 8.4 H, Basophils % 0.9, Absolute Granulocytes 2.3, Absolute Lymphocytes 2.1, Absolute Monocytes 0.8 H, Absolute Eosinophils 0.5, Absolute Basophils 0.1, PUBS MCHC 33.7 Lines/Diet/Fluids Fluids/Infusions: none Assessment/Plan Assessment: Hematoma located on patient's right upper extremity demonstrates improvement over yesterday while maintained with a pressure dressing. Sensation and pulses in the extremity are intact in addition to his her strength and free range of movement of the extremity. Neurological exam demonstrates a pleasant woman oriented to person place and time in no acute distress with intact sensation and spontaneous movements of all 4 extremities with no obvious neurological deficits. Neurosurgery was consulted and it was determined that patient will require [address] scan in 24 hours to assess for evolution of the subdural hematoma and otherwise will be to be held off anticoagulation for 1 week. She will need to follow-up with neurosurgery as an outpatient for further monitoring. She is considered medically stable for discharge from the ICU and will be transferred to the general medicine floor when a bed is available. Problem list: -Arterial thrombosis of the right upper extremity status post thrombectomy -Mechanical fall resulting in subdural hematoma -History of atrial fibrillation, anticoagulation held Cardiovascular: It is unclear why patient developed an arterial thrombus/embolus while being maintained on Coumadin, it is possible she was subtherapeutic as she reports that often assessing her INR. Vascular surgery was consulted and patient was taken to the OR for a thrombectomy that was successful. She unfortunately sustained a mechanical fall because of the DVT prophylaxis cuffs attached her legs and suffered acute head trauma which was subsequently identified to result in a subdural hematoma. Neurosurgery was consulted and given her relatively benign neurological exam and small appearance of the hematoma serial CT scans were obtained all demonstrating a stable appearing hematoma. She is to be held off of anticoagulation for 1 week's time. She will need to follow-up with neurosurgery as an outpatient for further management of the subdural hematoma. * No anticoagulation for 1 week * Amlodipine 2.5 mg by mouth daily * Lisinopril 20 mg by mouth daily * Metoprolol XL 100 mg by mouth daily - held due to bradycardia. * Atorvastatin 20 mg by mouth daily * Hematology consult - recommended dabigatran as an anticoagulant. * Vascular surgery consult following - recommended defering anticoagulation for a week. * CT scan today shows interval decrease in hematoma size. Patient is discharged today with holding metoprolol and asked to start dabigatran 150BID form july 08 onwards. Dabigatran is suggested by heam/onc - in agreement with cardiology, vascular surgery, Neurosurgery. Pain plan: * Acetaminophen 650 mg by mouth every 6 hours as needed for pain 1-3 * Oxycodone 5 mg by mouth every 6 hours as needed for pain 4-6 Diet-heart healthy diet DVT prophylaxis-mechanical CODE STATUS-full code Problem List: 1. Acute thrombosis of right upper extremity 2. Subdural hematoma 3. Atrial fibrillation Pain Ratin Pain Location: right forearm Pain Goal: Pain 4 or less Pain Plan: tylenol prn Tomorrow's Labs & Rationales: none
[2016-07-03 10:14] VITALS: BP 118/82
--- NOTE | 2016-07-03 11:34 | PN- Cardiology ---
Subjective Subjective: Feeling well. No chest pain. No palpitations. No diaphoresis. She remains in atrial fibrillation. Ventricular rate has been well-controlled on telemetry off metoprolol. No further significant pauses. Objective Vital Signs and I&Os Vital Signs Date Time Temp Pulse Resp B/P Pulse O2 O2 Flow FiO2 Ox Delivery Rate 07/03 1014 79 118/82 07/03 1014 80 118/82 07/03 0800 Room Air 07/03 0800 97.0 77 22 118/82 94 Room Air Room Air 07/03 0000 95 Room Air 07/03 0000 97.8 76 22 95 Room Air 07/02 1600 98.4 81 20 120/78 96 Room Air Intake & Output 07/03 1600 07/03 0800 07/03 0000 07/02 1600 07/02 0807/02 0000 Intake Total 100 440 120 480 Output Total Balance 100 440 120 480 Intake, Oral 100 440 120 480 Number 0 1 Bowel Movements Physical Exam: General: WD/ WN female in NAD; alert and oriented x 3 HEENT: NC/AT, PERRL, EOMI, clear oropharynx Neck: no JVD, transmitted carotid bruits Heart: irregularly irregular with 3/6 systolic murmur at the LLSB, 2/6 systolic murmur at the apex and 2/6 systolic and diasolic murmur at the RUSB Lungs: clear bilaterally Abdomen: soft, NT, +ve bowel sounds Extremities: no edema, Right hand has minimal coolness of the index finger at the present time. There is a 1+ right radial pulse and a 2+ right ulnar pulse and normal pulses noted in the right brachial and cephalic arteries. Neuro: non-focal, normal muscle strength Current Medications: Current Medications Sig/James Start time Last Medication Dose Route Stop Time Status Admin Acetaminophen 650 MG Q6P PRN 06/30 1345 AC 06/30 PO 2123 Amlodipine Besylate 2.5 MG DAILY 07/01 1000 AC 07/03 PO 1014 Atorvastatin Calcium 20 MG 1700 06/30 1700 AC 07/02 PO 1730 Levothyroxine Sodium 0.1 MG DAILY AC 07/01 0700 AC 07/03 PO 0622 Lisinopril 20 MG DAILY 07/01 1000 AC 07/03 PO 1014 Magnesium Oxide 400 MG ONE ONE 07/03 0745 DC 07/03 PO 07/03 0746 1014 Oxycodone HCl 5 MG Q6P PRN 06/30 1345 AC PO Sodium Chloride 2 SPRAY BID PRN 07/02 1330 AC CHRISTAL Results Last 48 Hrs of Labs/Mics: Laboratory Tests 07/03/16 0430: Anion Gap 9, Estimated GFR 52 L, Glucose 99, Calcium 9.6, Phosphorus 3.6, Magnesium 1.7, Total Bilirubin 0.6, AST 25, ALT 35, Albumin 3.1 L, PT 14.9 H, INR 1.42 H, CBC w Diff NO MAN DIFF REQ, RBC 3.33 L, MCV 94.4, MCH 31.8 H, RDW 13.3, MPV 8.0, Gran % 40.0 L, Lymphocytes % 36.5, Monocytes % 14.2 H, Eosinophils % 8.4 H, Basophils % 0.9, Absolute Granulocytes 2.3, Absolute Lymphocytes 2.1, Absolute Monocytes 0.8 H, Absolute Eosinophils 0.5, Absolute Basophils 0.1, PUBS MCHC 33.7 07/02/16 0606: Anion Gap 9, Estimated GFR 59 L, Glucose 88, Calcium 9.6, Phosphorus 2.9, Magnesium 1.9, Total Bilirubin 0.9, AST 24, ALT 29, Albumin 3.4 L, PT 16.1 H, INR 1.54 H, CBC w Diff NO MAN DIFF REQ, RBC 3.54 L, MCV 94.4, MCH 32.3 H, RDW 13.4, MPV 8.3, Gran % 57.9, Lymphocytes % 25.9, Monocytes % 9.7 H, Eosinophils % 6.2 H, Basophils % 0.3, Absolute Granulocytes 3.9, Absolute Lymphocytes 1.7, Absolute Monocytes 0.6, Absolute Eosinophils 0.4, Absolute Basophils 0, PUBS MCHC 34.3 Assessment/Plan Assessment/Plan Assessment: 1. Brachial and radial artery thrombosis, status post thrombectomy 2. Subdural hematoma 3. Atrial fibrillation with slow ventricular rate and second pause Plan: * Keep off metoprolol for now. * Discharge to home * Start Pradaxa 150 mg po bid on July 08 if OK with neurosurgery * Follow up with neurosurgery and vascular in 1 week * F/U with Dr. Nguyen in 1 week. Continue telemetry? Not applicable
--- NOTE | 2016-07-03 11:49 | Patient Discharge Instructions ---
Discharge Instructions General Discharge Information You were seen/treated for: Arterial thrombosis while on anticoagulation You had these procedures: thrombectomy Watch for these problems: Any sudden bleed, abrupt sweating, dizziness, lightheadedness. Do not soak the wound: Yes No bath, but you may shower: Yes Other wound care: Daily dry dressing for a week Special Instructions: PLEASE DONT TAKE BLOOD THINNER FOR 1 WEEK (TILL July) START TAKING DABIGATRAN 150mg BID FROM July stop taking metoprolol Please follow up with in 1week. Please follow up with neurosurgery () in a week Please follow up with vascular surgery in a week. Diet Continue normal diet: No Recommended Diet: Heart Healthy Activity Full Activity/No Limits: No Activity Self Limited: Yes Acute Coronary Syndrome Inclusion Criteria At DC or during hospital stay patient has or had the following: ACS DIAGNOSIS No Discharge Core Measures Meds if any: Prescribed or Continued at Discharge Meds if any: NOT Prescribed or Continued at Discharge Congestive Heart Failure Inclusion Criteria At DC or during hospital stay patient has or had the following: CHF DIAGNOSIS No Discharge Core Measures Meds if any: Prescribed or Continued at Discharge Meds if any: NOT Prescribed or Continued at Discharge Cerebrovascular accident Inclusion Criteria At DC or during hospital stay patient has or had the following: CVA/TIA Diagnosis No Discharge Core Measures Meds if any: Prescribed or Continued at Discharge Meds if any: NOT Prescribed or Continued at Discharge Venous thromboembolism Inclusion Criteria VTE Diagnosis No VTE Type NONE VTE Confirmed by (Test) NONE Discharge Core Measures - Per Current guidelines, there needs to be overlap - treatment for the first 5 days of Warfarin therapy. - If discharged on Warfarin prior to 5 days of - overlap therapy, the patient will need to be - assessed for post discharge needs including - *Post discharge parental anticoagulation - *Warfarin and/or parental anticoagulation education - *Follow up date to check INR post discharge At least 5 days overlap therapy as Inpatient No Meds if any: Prescribed or Continued at Discharge Note: Overlap Therapy is Warfarin and Anticoagulant Meds if any: NOT Prescribed or Continued at Discharge
[2016-07-03] MEDS ORDERED: PRADAXA150 M1 PO (11:50)
--- NOTE | 2016-07-03 14:29 | Discharge Summary ---
Visit Information Visit Dates Admission Date: 06/29/16 Discharge Date: 07/03/16 Hospital Course Course Attending Physician: LIZ CABRALES PhD,LEATHA Montaño Primary Care Physician: JAMSHID GODWIN MD Consulting Request: 1 Consulting Specialty: Neurosurgery Consulting Physician: Dr.[place] Jules braga Reason for Consult: subdural hematoma Consulting Request: 2 Consulting Specialty: Thoracic/Vascular Surgery Consulting Physician: Getachew hughes Reason for Consult: thrombectomy Consulting Request: 3 Consulting Specialty: Hematology/Oncology Consulting Physician: Barby flores Reason for Consult: Arterial thrombosis Hospital Course: Patient is an 86-year-old lady with a history of atrial fibrillation, hypertension hyperlipidemia that was brought in by her daughter due to sudden onset pain, numbness in tingling of the right arm extending from shoulder to fingers. An GM of the right upper extremity revealed focal occlusion of the distal brachial artery suspicious for thrombus or embolus. Vital signs on admission: Temperature 98.1, pulse rate 79, respiratory rate 18, blood pressure 142/79, saturating in room air. Lab work significant for hyponatremia of 132, decreased serum osmolality to 282, INR of 2.69H&H 12.1/36.3 CTA of the right upper extremity done in the ED showed: Focal occlusion of the distal brachial artery. Given the abrupt change in opacification, a thrombus or embolus is suspected. Chest x-ray normal Initially admitted to telemetry she has been started on IV heparin. Vascular surgery consult has been obtained as per recommendations, we will transfuse 2 units of FFP at 4 AM( to reverse the INR). Patient underwent embolectomy later next day. After the surgery, around 3:30 PM patient fell face forward onto the ground while attempting to get out of bed. She was without any neurological symptoms. CT Head showed subdural hematoma and she was subsequently transferred to the ICU. Course in ICU: Pressure dressing is applied on the right upper extremity with good pulsations. Neurosurgery is consulted and recommended another CT head in 24hrs which demonstrated a stable appearing hematoma. She was asked to discontinue her anticoagualtion for 1 week and then start pradaxa 150mg BID starting form july 08 for her Atrial fibrillation. History of hypertension we continued her home medications amlodipine 2.5 mg daily, Lisinopril 20mg, Metoprolol XL 100mg. Bradycardia During her ICU stay she developed bradycardia for which she was discontinued metoprolol, after a day she appeared stable and discharged on her home dose of metoprolol 100mg XL. History of CAD - old anterior FL based on EKG Patient does not report a history of FL, we continued her home medications aspirin, statin, metoprolol 100 mg daily History of hypothyroidism we Continued her home dose of levothyroxine 0.1 mg daily. Complications: Fall while walking with ALPS and had a subdural hematoma of the head. Subsequently transfered to ICU. repeat CT head demonstrated a stable size hematoma. Allergies: Coded Allergies: No Known Drug Allergies (06/29/16) Significant Procedures: CTA of the right upper extremity done in the ED showed: Focal occlusion of the distal brachial artery. Given the abrupt change in opacification, a thrombus or embolus is suspected. Chest x-ray normal Operative/Inv Procedure Report Surgery Date: 06/30/16 Name of Procedure: Right brachial artery embolectomy Pre-Operative Diagnosis: Right brachial artery embolus Post-Operative Diagnosis: The same Estimated Blood Loss: less than 50ml Surgeon/Community Resource Officer: MD Marla Box Anesthesia: laryngeal mask airway, local 1% lidocaine Specimens: Brachial artery embolus Operative Indication: Acute right upper extremity ischemia Pertinent Lab Results: as above Disposition Summary Disposition Principal Diagnosis: Arterial thrombosis requiring thrombectomy Additional Diagnosis: Subdural hematoma s/p fall Discharge Disposition: home or self care Discharge Instructions General Discharge Information Code Status: Full Code Patient's Diet: heart healthy diet Patient's Activity: activity as tolerated Follow-Up Instructions/Appts: PLEASE DONT TAKE BLOOD THINNER FOR 1 WEEK (TILL July) START TAKING DABIGATRAN 150mg BID FROM July stop taking metoprolol Please follow up with in 1week. Please follow up with neurosurgery () in a week Please follow up with vascular surgery in a week. Medications at Discharge Discharge Medications: Stop taking the following medications: Warfarin Sodium (Coumadin) 5 MG TABLET ORAL 3X/WEEK Warfarin Sodium (Coumadin) 2.5 MG TABLET ORAL /SUN Metoprolol Succinate (Metoprolol Succinate) 100 MG TAB.ER.24H ORAL DAILY Continue taking these medications: Amlodipine (Norvasc) 2.5 MG TABLET 1 Tablet ORAL DAILY Comments: Last Taken:07/03/16 Time:1000 Simvastatin (Zocor*) 20 MG TABLET 1 Tablet ORAL DAILY Comments: NOT GIVEN IN THE HOSPITAL Lisinopril (Lisinopril) 20 MG TABLET 1 Tablet ORAL DAILY Comments: Last Taken:07/03/16 Time:1000 Levothyroxine Sodium (Synthroid) 100 MCG TABLET 1 Tablet ORAL DAILY Comments: Last Taken:07/03/16 Time:0622 Start taking the following new medications: Dabigatran Etexilate Mesylate (Pradaxa 150 MG) 150 MG CAPSULE 1 Capsule ORAL TWICE DAILY Qty = 60 No Refills Comments: NOT GIVEN IN HOSPITAL Copies To: GETACHEW CABRALES,CESIA GOSS; BARBY CABRALES,[facility]; DEVEN CABRALES,JULES Saavedra; LIZ CABRALES PhD,LEATHA Montaño Attending MD Review Statement Documenting Attending: LIZ CABRALES PhD,LEATHA Montaño
== END 2016-07-03 13:45 | DRG 254 ==
LOC: ERH 11:20 → 1NO 18:17 → ERHI 18:17 → 1NO 20:43 → CRI 06-30 18:05
PROVIDERS: Emergency Medicine; Internal Medicine; Internal Medicine Interventional Cardiology; Ophthalmology; Physician Assistant Surgical; Student in an Organized Health Care Education/Training Program; ADMIT Internal Medicine Interventional Cardiology
PROC: 03C70ZZ Extirpation of Matter from Right Brachial Artery, Open Approach (ICD-10-PCS; principal; 2016-06-30)
DX: I74.2 Embolism and thrombosis of arteries of the upper extremities (principal); S06.5X0A Traumatic subdural hemorrhage without loss of consciousness, initial encounter; I48.91 Unspecified atrial fibrillation; I11.9 Hypertensive heart disease without heart failure; S01.511A Laceration without foreign body of lip, initial encounter; I07.1 Rheumatic tricuspid insufficiency; J43.9 Emphysema, unspecified; Z79.01 Long term (current) use of anticoagulants; E78.5 Hyperlipidemia, unspecified; E03.9 Hypothyroidism, unspecified; I25.10 Atherosclerotic heart disease of native coronary artery without angina pectoris; W06.XXXA Fall from bed, initial encounter; I35.0 Nonrheumatic aortic (valve) stenosis
CPT/HCPCS: 1NSP; 84133; 84300; CCU; 36415; 76770; 82436; 82570; 83630; 87328; 87329; 88304; 93005; 93010; 93306; 94799; 96374; 99291; J0690; J1644; J7508

== ENCOUNTER 2016-09-04 11:51 | Inpatient (IN) | payer OTHER, MEDICARE ==
[~2016-09-04] VITALS: Ht 172.7 cm; Wt 63.5 kg
[~2016-09-04 11:51] MED LIST: COUMADIN2.5 M1 PO; COUMADIN5 M2 PO; LISINOPRIL20 M1 PO; METOPROLOL SUC100 M2 PO; NORVASC2.5 M1 PO; PRADAXA150 M1 PO; SYNTHROID100 MCG PO; ZOCOR20 M1 PO
--- NOTE | 2016-09-04 12:01 | NUR ---
PT TO ED C/O ABD PAIN SINCE YESTERDAY. C/O N/V/-D. PT WENT TO WALK IN AND WAS ADVISED TO COME TO ED FOR FURTHER EVAL.
--- NOTE | 2016-09-04 12:42 | NUR ---
PT TO ROOM, STATES THAT SHE STARTED WITH DIFFUSE ABD PAIN YESTERDAY ABOUT 1130 AM, PROJECTILE VOMITTED X 1, COMPLAINS OF DIFFUSE ABD PAIN ON LIGHT PAPLPATION AND NAUSEA AT THIS TIME, UNSURE OF WHEN HER LBM WAS. DENIES URINARY SYMPTOMS
[2016-09-04] MEDS ORDERED: LOPRESSOR100 M1 PO (12:52)
--- NOTE | 2016-09-04 13:02 | ED GI/GU/ABDOMINAL COMPLAINT ---
History of Present Illness General Chief Complaint: Abdominal Pain/Flank Pain Stated Complaint: ABD PAIN Source: patient, family Exam Limitations: no limitations Allergies Coded Allergies: No Known Drug Allergies (06/29/16) Reconcile Medications Amlodipine (Norvasc) 2.5 MG TABLET 1 TAB PO DAILY D (Reported) Dabigatran Etexilate Mesylate (Pradaxa 150 MG) 150 MG CAPSULE 1 CAP PO BID blood thinner Levothyroxine Sodium (Synthroid) 100 MCG TABLET 1 TAB PO DAILY AC THYROID ( Reported) Lisinopril 20 MG TABLET 1 TAB PO DAILY HTN (Reported) Metoprolol Tartrate (Lopressor) 100 MG TABLET 1 TAB PO BID HEART (Reported) Simvastatin (Zocor*) 20 MG TABLET 1 TAB PO DAILY CHOLESTEROL (Reported) Triage Note: PT TO ED C/O ABD PAIN SINCE YESTERDAY. C/O N/V/-D. PT WENT TO WALK IN AND WAS ADVISED TO COME TO ED FOR FURTHER EVAL. Triage Nurses Notes Reviewed? yes ? n Is pt currently ? No HPI: Patient is an 86 year old female presents complaining of diffuse abdominal onset yesterday. Pain is a dull/heaviness sensation is moderate at rest, worsens with palpation and deep breath. 3 episodes of vomiting yesterday prior to onset of pain. Last bowel movement was yesterday, patient did not notice any blood present. Patient has not taken any medication for her symptoms prior to onset. Denies fevers, urinary symptoms, hematochezia, melena. (DAISY CHADWICK,YSABEL) Vital Signs & Intake/Output Vital Signs & Intake/Output Vital Signs Date Time Temp Pulse Resp B/P Pulse O2 O2 Flow FiO2 Ox Delivery Rate 09/04 1831 178/80 03/06 1724 99.1 90 18 182/86 94 Room Air 03/06 1535 98.9 102 18 171/74 94 Room Air 03/06 1320 148/90 03/06 1240 Room Air 03/06 1159 97.9 106 20 99/67 94 Room Air Past History Travel History Traveled to [place] past 21 day No Medical History Any Pertinent Medical History? see below for history Neurological: NONE EENT: NONE Cardiovascular: AFIB, hypertension, hyperlipidemia Respiratory: NONE Gastrointestinal: NONE Hepatic: NONE Renal: NONE Musculoskeletal: NONE Psychiatric: NONE Endocrine: hypothyroidism Blood Disorders: NONE Cancer(s): NONE MATERIAL DISPATCHER/Reproductive: NONE Other Medical Hx: dvt upper extremity History of MRSA: No History of VRE: No History of CDIFF: No Pneumonia Vaccine: 07/02/13 Influenza Vaccine: 05/02/16 Surgical History Surgical History: appendectomy Psychosocial History Who do you live with Father Services at Home None What is your primary language [place] Tobacco Use: Never used ETOH Use: denies use Illicit Drug Use: denies illicit drug use Family History Hx Contributory? No (YSABEL LANDRY) Review of Systems Review of Systems Constitutional: Denies: chills, fever. EENTM: Reports: no symptoms. Respiratory: Denies: cough, short of breath. Cardiovascular: Denies: chest pain. GI: Reports: see HPI. Genitourinary: Reports: no symptoms. Musculoskeletal: Reports: no symptoms. Skin: Reports: no symptoms. Neurological/Psychological: Reports: no symptoms. Hematologic/Endocrine: Reports: no symptoms. Immunologic/Allergic: Reports: no symptoms. (YSABEL LANDRY) Physical Exam Physical Exam General Appearance: well developed/nourished, alert, awake Head: atraumatic, normal appearance Eyes: Bilateral: normal appearance, PERRL, EOMI. Ears, Nose, Throat, Mouth: hearing grossly normal, moist mucous membrane Neck: normal inspection, supple, full range of motion Respiratory: normal breath sounds, chest non-tender, no respiratory distress, lungs clear Cardiovascular: irregularly irregular, rate controlled. 3/6 systolic murmur Gastrointestinal: normal bowel sounds, soft, mild right sided abdominal tenderness, mild guarding LLQ tenderness. No rigidity. Back: normal inspection, normal range of motion, no cva tenderness Extremities: normal range of motion, no edema Neurologic/Psych: awake, alert, oriented x 3 Skin: intact, normal color, warm/dry Core Measures ACS in differential dx? Yes ASA ordered for poss ACS? No-ACS ruled out Severe Sepsis Present: No Septic Shock Present: No (YSABEL LANDRY) Progress Differential Diagnosis: AAA, AMI, biliary colic, cholecystitis, diverticulitis, pancreatitis, SBO, UTI/pyelo, cholangitis Diagnostic Imaging: Viewed by Me: CT Scan. Discussed w/RAD: CT Scan. Radiology Impression: PATIENT: HEIDE CERON PRESENT AGE: 86 PATIENT ACCOUNT NO: [id number] : 29 LOCATION: [facility] ORDERING PHYSICIAN: YSABEL CHADWICK SERVICE DATE: 09/04/16 EXAM TYPE: CAT - CT ABD & PELVIS W IV CONTRAST EXAMINATION: CT ABDOMEN AND PELVIS WITH CONTRAST CLINICAL INFORMATION: Diffuse abdominal pain. COMPARISON: None. TECHNIQUE: Multidetector volumetric imaging was performed of the abdomen and pelvis before and after the IV administration of 95 mL of Optiray 320 intravenous contrast. Sagittal and coronal reformatted images were obtained on the technologist's workstation. DLP: 360 mGy-cm FINDINGS: LUNG BASES: Evaluation of the included lung bases demonstrates scarring/atelectasis within the right middle lobe and to a lesser extent within the right lung base. No pleural or pericardial effusions are identified. LIVER, GALLBLADDER, AND BILIARY TREE: The liver is normal in size, shape, and attenuation. There is a geographic region of hypoattenuation within the left hepatic lobe, adjacent to the falciform ligament. This finding is nonspecific but is characteristic in location for focal fatty infiltration of the liver. No focal hepatic lesion or biliary ductal dilatation is present. The gallbladder is unremarkable with no evidence of radiopaque gallstones, gallbladder wall thickening, or obvious pericholecystic inflammatory changes. PANCREAS: There are peripancreatic inflammatory changes surrounding the distal pancreatic body and tail, with minimal fluid visualized surrounding the distal pancreatic body and tail and extending contiguously into the left upper quadrant of the abdomen and minimally into the left paracolic gutter. There is mild generalized pancreatic atrophy. No organizing peripancreatic fluid collections are identified. There is fatty infiltration of the pancreas. SPLEEN: Unremarkable. ADRENAL GLANDS: Unremarkable. KIDNEYS AND URETERS: Evaluation of the bilateral kidneys and renal collecting systems is notable for multiple bilateral simple renal cortical cysts and parapelvic cysts visualized measuring up to 4 cm along the lower pole of the left kidney and 1.8 cm along the upper pole of the right kidney. Of note, there is mild to moderate hydroureteronephrosis of the left kidney and left renal collecting system to the level of the distal left ureter, approximately 1 cm from the left ureterovesicular junction. There are no visible obstructing ureteral stones. There is no appreciable nephrolithiasis of either kidney. BLADDER: Under distended but otherwise unremarkable, without visible bladder stones. GASTROINTESTINAL TRACT: Pancolonic diverticulosis, most extensive along the descending and rectosigmoid colon, without secondary signs of acute diverticulitis. Normal anatomic orientation of the stomach relative to the duodenum. Normal caliber of abdominal and pelvic bowel loops, without findings indicative of obstruction or ileus. Nonvisualization of the appendix. No acute inflammatory changes within the right lower quadrant of the abdomen. ABDOMINAL WALL: No significant hernia is appreciated. LYMPH NODES: No significant abdominal or pelvic adenopathy. VASCULAR: Extensive atherosclerosis of the abdominal aorta and its branching vessels, without aneurysmal dilatation. The infrarenal abdominal aorta is ectatic and is visualized measuring 2.6 x 2.8 cm in AP and transverse dimensions respectively (series 2, image 33). PELVIC VISCERA: A minimal amount of free pelvic fluid. No adnexal masses. OSSEOUS STRUCTURES: No acute osseous abnormality. Mild right convex curvature of the lumbar spine. Chronic compression deformity involving the T11 vertebral body. Moderate degenerative changes of the lower lumbar spine. IMPRESSION: 1. Mild peripancreatic inflammatory changes and minimal free fluid surrounding the distal pancreatic tail and body and tracking contiguously into the left upper quadrant of the abdomen. Primary diagnostic consideration is for an acute pancreatitis. Correlate with pancreatic enzyme levels. 2. Mild to moderate hydroureteronephrosis of the left kidney and left renal collecting system to the level of the distal left ureter, approximately 1 cm from the left ureterovesicular junction. No visible obstructing left-sided ureteral stone. No appreciable nephrolithiasis of either kidney. Consider urological consultation for further clinical management and workup. 3. Multiple bilateral simple renal cortical cysts and parapelvic cysts. 4. Pancolonic diverticulosis, without secondary signs of acute diverticulitis. DICTATED BY: VALERIO MCGRATH MD DATE/ TIME DICTATED:09/04/161426 MARKETING RESEARCHER:JAVIER DATE/TIME TRANSCRIBED: 09/04/161426 CONFIDENTIAL, DO NOT COPY WITHOUT APPROPRIATE AUTHORIZATION. < Electronically signed in Other Vendor System> SIGNED BY: VALERIO MCGRATH MD 09/04/16 1442 Initial ED EKG: ATRIAL FIBRILLATION RATE IN THE 100'S, NONSPECIFIC ST/T WAVE ABNORMALITIES, NO ACUTE ST/T WAVE CHANGES COMPARED TO PREVIOUS EKG Prior EKG: unchanged (YSABEL LANDRY) Plan of Care: Orders Procedure Date/time Status CBC WITHOUT DIFFERENTIAL 09/05 599 Active BASIC ELECTROLYTES PLUS BUN&CR 09/05 599 Active Nothing by Mouth 09/04 D Active LACTIC ACID 09/04 1624 Complete CULTURE,URINE 09/04 1556 Active Code Status 09/04 1548 Active Lab Add-on Test 09/04 1537 Active Pathway - chart 09/04 1523 Active House Staff 09/04 1523 Active Patient Data 09/04 1507 Active Admit to inpatient 09/04 1456 Active Add-on Test (ER Only) 09/04 1402 Active LACTIC ACID 09/04 1324 Complete Add-on Test (ER Only) 09/04 1311 Active URINALYSIS 09/04 1311 Active TRIGLYCERIDES 09/04 1250 Complete LIPASE 09/04 1250 Complete LDH (LACT ACID DEHYDROGENASE) 09/04 1250 Complete AMYLASE 09/04 1250 Complete COMPREHENSIVE METABOLIC PANEL 09/04 1203 Complete CBC WITHOUT DIFFERENTIAL 09/04 1203 Complete EKG 09/04 1203 Active US-RENAL/KIDNEY 09/04 UNK Active US-LIMITED ABDOMEN 09/04 UNK Active VTE Mechanical Prophylaxis 09/04 UNK Active Vital Signs 09/04 UNK Active Intake & Output 09/04 UNK Active Current Medications Sig/James Start time Last Medication Dose Stop Time Status Admin Amlodipine Besylate 5 MG DAILY 09/05 1000 AC (Norvasc) Dabigatran 150 MG BID 09/04 2200 AC (PRADAXA) Metoprolol Tartrate 100 MG BID 09/04 2200 AC (Lopressor) Ondansetron HCl 4 MG Q6P PRN 09/04 1600 AC (Zofran) Lactated Ringer's 1,000 ML Q6H 09/04 1545 AC (Lactated Ringers) Acetaminophen 650 MG Q6 PRN 09/04 1530 AC (Tylenol) Morphine Sulfate 2 MG Q6PRN PRN 09/04 1530 AC (Morphine) Oxycodone HCl 5 MG Q6 PRN 09/04 1530 AC (Roxicodone) Laboratory Tests 09/04/16 1642: Lactic Acid 1.5 09/04/16 1327: Lactic Acid 1.4 09/04/16 1250: Anion Gap 11, Estimated GFR 59 L, BUN/Creatinine Ratio 24.4, Glucose 110 H, Calcium 10.4 H, Total Bilirubin 1.2, AST 34, ALT 21, Alkaline Phosphatase 69, Lactate Dehydrogenase 670 H, Total Protein 6.8, Albumin 4.0, Globulin 2.8, Albumin/Globulin Ratio 1.4, Triglycerides 78, Amylase 1463 H, Lipase 6700 H, CBC w Diff MAN DIFF ORDERED, RBC 4.43, MCV 93.0, MCH 31.5 H, RDW 14.2, MPV 8.6, Gran % 86.4 H, Lymphocytes % 7.4 L, Monocytes % 5.9, Eosinophils % 0, Basophils % 0.3, Absolute Granulocytes 11.3 H, Absolute Lymphocytes 1.0 L, Absolute Monocytes 0.8 H, Absolute Eosinophils 0, Absolute Basophils 0, Platelet Estimate ADEQUATE, Normocytic RBCs VERIFIED, Normochromic RBCs VERIFIED , PUBS MCHC 33.9 Microbiology 09/04 1556 URINE ROUT: Urine Culture - COLB Patient declined pain medication and antiemetics on exam. 1400: Results of labs discussed with patient and her daughter. Awaiting CT scan 1405: Discussed with and seen by Dr. Hernandez. Results of CT scan discussed with patient and her daughter. Patient resting comfortably. Discussed with Dr. Huston for admission. (YSABEL LANDRY) Departure Departure Disposition: STILL A PATIENT Condition: Stable Clinical Impression Primary Impression: Pancreatitis Referrals: JAMSHID GODWIN MD (PCP/Family) Departure Forms: Customer Survey General Discharge Information Admission Note Spoke With: ALEXANDER HUSTON MD Documentation of Exam: Documentation of any treatments & extenuating circumstances including Concerns Regarding Discharge (functional status, medication knowledge or non-compliance, living conditions, etc.) that warrant an admission rather than observation: Nothing by mouth initially, IV fluids, consider GI consultation, serial abdominal exams, serial labs. Patient at high risk if discharged home at this time (YSABEL LANDRY) PA/SCAFFOLD WORKER Co-Sign Statement Statement: ED Attending supervision documentation- [x] I saw and evaluated the patient. I have also reviewed all the pertinent lab results and diagnostic results. I agree with the findings and the plan of care as documented in the PA's/SCAFFOLD WORKER's documentation. [] I have reviewed the ED Record and agree with the PA's/SCAFFOLD WORKER's documentation. [] Additions or exceptions (if any) to the PAs/SCAFFOLD WORKER's note and plan are summarized below: [] (JASKARAN CABRALES,RODOLFO Heck)
[2016-09-04 13:06] LABS: ABSOLUTE BASOPHIL COUNT 0 /CUMM (0.0-0.2); ABSOLUTE EOSINOPHIL COUNT 0 /CUMM (0.0-0.7); ABSOLUTE GRANULOCYTE CT 11.3 /CUMM (1.4-6.5); ABSOLUTE MONOCYTE COUNT 0.8 /CUMM (0.10-0.60); BASOPHIL % 0.3 % (0.0-2.0); EOSINOPHIL % 0 % (0-5); GRANULOCYTE % 86.4 % (42.2-75.2); HEMATOCRIT 41.2 % (37-47); MEAN CORPUSCULAR HGB 31.5 PG (27.0-31.0); MEAN CORPUSCULAR HGB CONC 33.9 G/DL (33.0-37.0); MEAN PLATELET VOLUME 8.6 FL (7.4-10.4); PLATELET COUNT 207 /CUMM (130-400); RBC DISTRIBUTION WIDTH 14.2 % (11.5-14.5); RED BLOOD CELL CT 4.43 /CUMM (4.20-5.40); WHITE BLOOD CELL COUNT 13.1 /CUMM (4.8-10.8)
--- NOTE | 2016-09-04 13:29 | NUR ---
FLUIDS INFUSING AT THIS TIME. PT AWAKE AND ALERT BUT STATES THAT SHE WOULD LIKE TO BE ABLE TO REST AT THIS TIME. LIGHTS DIMMED
--- NOTE | 2016-09-04 13:55 | NUR ---
NS DISCONTINUED AND LACTATED RINGERS INFUSING AT THIS TIME AT 150 ML/HR
--- NOTE | 2016-09-04 14:18 | NUR ---
PT RETURNS TO ROOM VIA STRETCHER FROM CT.
--- NOTE | 2016-09-04 14:42 | CT SCAN REPORT ---
EXAMINATION: CT ABDOMEN AND PELVIS WITH CONTRAST CLINICAL INFORMATION: Diffuse abdominal pain. COMPARISON: None. TECHNIQUE: Multidetector volumetric imaging was performed of the abdomen and pelvis before and after the IV administration of 95 mL of Optiray 320 intravenous contrast. Sagittal and coronal reformatted images were obtained on the technologist's workstation. DLP: 360 mGy-cm FINDINGS: LUNG BASES: Evaluation of the included lung bases demonstrates scarring/atelectasis within the right middle lobe and to a lesser extent within the right lung base. No pleural or pericardial effusions are identified. LIVER, GALLBLADDER, AND BILIARY TREE: The liver is normal in size, shape, and attenuation. There is a geographic region of hypoattenuation within the left hepatic lobe, adjacent to the falciform ligament. This finding is nonspecific but is characteristic in location for focal fatty infiltration of the liver. No focal hepatic lesion or biliary ductal dilatation is present. The gallbladder is unremarkable with no evidence of radiopaque gallstones, gallbladder wall thickening, or obvious pericholecystic inflammatory changes. PANCREAS: There are peripancreatic inflammatory changes surrounding the distal pancreatic body and tail, with minimal fluid visualized surrounding the distal pancreatic body and tail and extending contiguously into the left upper quadrant of the abdomen and minimally into the left paracolic gutter. There is mild generalized pancreatic atrophy. No organizing peripancreatic fluid collections are identified. There is fatty infiltration of the pancreas. SPLEEN: Unremarkable. ADRENAL GLANDS: Unremarkable. KIDNEYS AND URETERS: Evaluation of the bilateral kidneys and renal collecting systems is notable for multiple bilateral simple renal cortical cysts and parapelvic cysts visualized measuring up to 4 cm along the lower pole of the left kidney and 1.8 cm along the upper pole of the right kidney. Of note, there is mild to moderate hydroureteronephrosis of the left kidney and left renal collecting system to the level of the distal left ureter, approximately 1 cm from the left ureterovesicular junction. There are no visible obstructing ureteral stones. There is no appreciable nephrolithiasis of either kidney. BLADDER: Under distended but otherwise unremarkable, without visible bladder stones. GASTROINTESTINAL TRACT: Pancolonic diverticulosis, most extensive along the descending and rectosigmoid colon, without secondary signs of acute diverticulitis. Normal anatomic orientation of the stomach relative to the duodenum. Normal caliber of abdominal and pelvic bowel loops, without findings indicative of obstruction or ileus. Nonvisualization of the appendix. No acute inflammatory changes within the right lower quadrant of the abdomen. ABDOMINAL WALL: No significant hernia is appreciated. LYMPH NODES: No significant abdominal or pelvic adenopathy. VASCULAR: Extensive atherosclerosis of the abdominal aorta and its branching vessels, without aneurysmal dilatation. The infrarenal abdominal aorta is ectatic and is visualized measuring 2.6 x 2.8 cm in AP and transverse dimensions respectively (series 2, image 33). PELVIC VISCERA: A minimal amount of free pelvic fluid. No adnexal masses. OSSEOUS STRUCTURES: No acute osseous abnormality. Mild right convex curvature of the lumbar spine. Chronic compression deformity involving the T11 vertebral body. Moderate degenerative changes of the lower lumbar spine. IMPRESSION: 1. Mild peripancreatic inflammatory changes and minimal free fluid surrounding the distal pancreatic tail and body and tracking contiguously into the left upper quadrant of the abdomen. Primary diagnostic consideration is for an acute pancreatitis. Correlate with pancreatic enzyme levels. 2. Mild to moderate hydroureteronephrosis of the left kidney and left renal collecting system to the level of the distal left ureter, approximately 1 cm from the left ureterovesicular junction. No visible obstructing left-sided ureteral stone. No appreciable nephrolithiasis of either kidney. Consider urological consultation for further clinical management and workup. 3. Multiple bilateral simple renal cortical cysts and parapelvic cysts. 4. Pancolonic diverticulosis, without secondary signs of acute diverticulitis.
--- NOTE | 2016-09-04 15:10 | History & Physical ---
GABE CABRALES,[facility] 09/04/16 1509: General Information and HPI MD Statement: I have seen and personally examined HEIDE CERON and documented this H&P. The patient is a 86 year old F who presented with a patient stated chief complaint of Abdominal Pain. 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 Patient states that she was in her normal state of health until 09/03/2016 when approximately at 11 AM the patient began to experience mild abdominal discomfort. The patient had recently finished eating her breakfast when she had one episode of projectile vomiting. The patient denies the presence of any hematemesis and describes emesis as contianing recently ingested food. Patient states during this episode she experienced abdominal pain rated at 7 out of 10 in severity. Described as an unpleasant type of sensation. Symptoms were located across the anterior abdominal wall and patient states that this discomfort was mobile. Patient has never had similar presentation previously. Patient did state that her pain got worse with breathing and certain movements. This morning the patient woke up and still felt abdominal pain. She contacted her primary care physician who recommended that she should seek additional medical advice. She initially went to a walk-in clinic who recommended that she would need to come to [facility] for additional imaging studies. Patient does have a limited occasional alcohol use history. Her last alcoholic drink was 08/30/2016. She had 1 unit of red wine. In addition to the above the patient denies any fever, chills, chest pain and/or chest discomfort. Part of the above history was obtained by the patients daughter Faye. Allergies/Medications Allergies: Coded Allergies: No Known Drug Allergies (06/29/16) Home Med list Amlodipine (Norvasc) 2.5 MG TABLET 1 TAB PO DAILY D (Reported) Dabigatran Etexilate Mesylate (Pradaxa 150 MG) 150 MG CAPSULE 1 CAP PO BID blood thinner Levothyroxine Sodium (Synthroid) 100 MCG TABLET 1 TAB PO DAILY AC THYROID ( Reported) Lisinopril 20 MG TABLET 1 TAB PO DAILY HTN (Reported) Metoprolol Tartrate (Lopressor) 100 MG TABLET 1 TAB PO BID HEART (Reported) Simvastatin (Zocor*) 20 MG TABLET 1 TAB PO DAILY CHOLESTEROL (Reported) Compliance With Home Meds: GOOD Past History Travel History Traveled to [place] past 21 day No Medical History Neurological: NONE EENT: NONE Cardiovascular: AFIB, hypertension, hyperlipidemia Respiratory: NONE Gastrointestinal: NONE Hepatic: NONE Renal: NONE Musculoskeletal: NONE Psychiatric: NONE Endocrine: hypothyroidism Blood Disorders: NONE Cancer(s): NONE DIRECTOR OF SUSTAINABILITY PROGRAMS/Reproductive: NONE Other Medical Hx: dvt upper extremity History of MRSA: No History of VRE: No History of CDIFF: No Pneumonia Vaccine: 07/02/13 Influenza Vaccine: 05/02/16 Surgical History Surgical History: appendectomy Past Family/Social History Psychosocial History Who Do You Live With? child Services at Home: None Primary Language: [facility] Smoking Status: Never Smoked ETOH Use: occasional use Illicit Drug Use: denies illicit drug use Living Will? unknown Power of Heater Engineer Helper/HCP? unknown Name of POA/HCP: unknown Functional Ability ADLs Independent: dressing, eating, toileting, bathing. Ambulation: independent IADLs Independent: medication admin. Review of Systems Review of Systems Constitutional: Reports: see HPI. Denies: chills, diaphoresis, fever. Cardiovascular: Denies: chest pain, edema, orthopena, palpitations. Respiratory: Denies: cough, hemoptysis, orthopnea, short of breath, sputum production. GI: Reports: abdominal pain, nausea, vomiting. Denies: bloating, constipation, diarrhea, distention, melena, bloody stool, changes in stool. Genitourinary: Reports: frequency. Denies: see HPI, discharge, dysuria, hematuria, hesitation, nocturia. Musculoskeletal: Reports: see HPI. Exam & Diagnostic Data Last 24 Hrs of Vital Signs/I&O Vital Signs Date Time Temp Pulse Resp B/P Pulse O2 O2 Flow FiO2 Ox Delivery Rate 09/04 1535 98.9 102 18 171/74 94 Room Air 09/04 1320 148/90 09/04 1240 Room Air 09/04 1159 97.9 106 20 99/67 94 Room Air Intake & Output 09/04 1600 09/04 0800 09/04 0000 Intake Total 700 Output Total Balance 700 Intake, IV 700 Intake, Oral 0 Patient 65.771 kg Weight Physical Exam General Appearance Alert, Oriented X3, Cooperative, No Acute Distress Cardiovascular Normal S1, Normal S2, Irregular Rate and Rhythm Systolic Murmur, Tricuspid Area Lungs Clear to Auscultation, Normal Air Movement Abdomen Normal Bowel Sounds, Soft, Tenderness on deep palpation. No rebound, no Guarding, CVA tenderness on the Left Neurological Normal Speech, Strength at 5/5 X4 Ext, Normal Tone Extremities No Clubbing, No Cyanosis, No Edema, Normal Pulses Vascular Normal Pulses, Pulses Symmetrical Last 24 Hrs of Labs/Markus: Laboratory Tests 09/04/16 1327: Lactic Acid 1.4 09/04/16 1250: Anion Gap 11, Estimated GFR 59 L, BUN/Creatinine Ratio 24.4, Glucose 110 H, Calcium 10.4 H, Total Bilirubin 1.2, AST 34, ALT 21, Alkaline Phosphatase 69, Lactate Dehydrogenase 670 H, Total Protein 6.8, Albumin 4.0, Globulin 2.8, Albumin/Globulin Ratio 1.4, Triglycerides 78, Amylase 1463 H, Lipase 6700 H, CBC w Diff MAN DIFF ORDERED, RBC 4.43, MCV 93.0, MCH 31.5 H, RDW 14.2, MPV 8.6, Gran % 86.4 H, Lymphocytes % 7.4 L, Monocytes % 5.9, Eosinophils % 0, Basophils % 0.3, Absolute Granulocytes 11.3 H, Absolute Lymphocytes 1.0 L, Absolute Monocytes 0.8 H, Absolute Eosinophils 0, Absolute Basophils 0, Platelet Estimate ADEQUATE, Normocytic RBCs VERIFIED, Normochromic RBCs VERIFIED , PUBS MCHC 33.9 Microbiology 09/04 1556 URINE ROUT: Urine Culture - COLB Diagnostic Data EKG Results Atrial Fibrillation Rate 96 QTC 455 Other Results SERVICE DATE: 09/04/16 EXAM TYPE: CAT - CT ABD & PELVIS W IV CONTRAST IMPRESSION: 1. Mild peripancreatic inflammatory changes and minimal free fluid surrounding the distal pancreatic tail and body and tracking contiguously into the left upper quadrant of the abdomen. Primary diagnostic consideration is for an acute pancreatitis. Correlate with pancreatic enzyme levels. 2. Mild to moderate hydroureteronephrosis of the left kidney and left renal collecting system to the level of the distal left ureter, approximately 1 cm from the left ureterovesicular junction. No visible obstructing left-sided ureteral stone. No appreciable nephrolithiasis of either kidney. Consider urological consultation for further clinical management and workup. 3. Multiple bilateral simple renal cortical cysts and parapelvic cysts. 4. Pancolonic diverticulosis, without secondary signs of acute diverticulitis. DICTATED BY: VALERIO MCGRATH MD Assessment/Plan Assessment: This is an 86-year-old female with past medical history of atrial fibrillation ( recently started on Pradaxa), right brachial artery embolus, hypothyroidism and coronary artery disease who presented to the emergency department with worsening abdominal pain. Elevation in enzymes (amylase and lipase) and imaging studies likely suggest pancreatitis as a source of her pain. #Abdominal pain Patient does not seem to have any clear causes of what may predispose her to pancreatitis. She denies heavy alcohol use. Denies any new medications that may be contribute to pancreatitis and denies any history of gallstones in the past. Calcium level is slightly increased, however not a likely cause. We can check triglycerides. Ultrasound in a.m. to rule out asymptomatic gallstones. Repeat lipase and amylase in a.m. Keep nothing by mouth for now. Aggressive IV hydration. Repeat BEP in a.m. Morphine for severe pain. Symptoms not resolving in a.m. consider GI consult. Trend lactic acid to ensure hypoperfusion does not occur. If lactic acid continues to increase consider CT of abdomen to rule out ischemia. Zofran when necessary for nausea. #Incidental finding of left hydronephrosis. Patient did complain of left-sided CVA tenderness. Imaging study did not show any evidence of visible obstructing ureteral stones. Monitor patient overnight if continues to experience pain in left flank consider repeat imaging. Consider urology consult in a.m. #History of hypertension. At time of admission patient's blood pressure was on a 182/86. Hold Abdulaziz for now Continue calcium channel ashley. #History of atrial fibrillation Continue Pradaxa Consider cardiology consult in a.m. if patient's cardiac function deteriorates or patient complains of chest pain. History of hypothyroidism Continue Synthroid Check TSH free T4. #Diet keep nothing by mouth for now Consider advancing diet in a.m. Literature suggest that By mouth intake as soon as the patient feels ready to begin po intake improves prognosis. #Dvt Prophylaxis: Pradaxa #code DNR/DNI As Ranked By This Provider Problem List: 1. Pancreatitis 2. Atrial fibrillation Core Measures/Miscellaneous Acute Coronary Syndrome ACS Diagnosis: No Cerebrovascular Accident CVA/TIA Diagnosis: No Congestive Heart Failure CHF Diagnosis: No Venous Thromboembolism VTE Risk Factors: Age > 40 [facility] d/t: No contraindications No VTE Pharm Prophylaxis d/t: No contraindications VTE Diagnosis: No VTE Type: NONE VTE Confirmed by (Test): NONE Severe Sepsis Severe Sepsis Present: No Septic Shock Septic Shock Present: No Miscellaneous Documentation Attending Case Discussed With: ALEXANDER HUSTON MD Primary Care Physician: JAMSHID GODWIN MD Patient sees these Specialists NA Level of Patient Care: General Medicine SHARATHSYL 09/04/16 1511: Resident Review Statement Resident Statement: examined this patient, discussed with software intern, agreed with software intern, discussed with family, reviewed EMR data (avail), discussed with nursing , discussed with case mgmt, reviewed images, amended to note Other Findings: 86-year-old woman with a past medical history of atrial fibrillation on Pradaxa, hypertension, hyperlipidemia, hypothyroidism, and history of coronary artery disease, subdural hematoma status post involved, arterial thrombosis requiring thrombectomy presented to the ED with chief complaint of diffuse abdominal pain. According to the patient she was in her usual state of health up until yesterday morning when at around 11 AM she had breakfast and had 3 episodes of vomiting. At that time she'll 6. His left upper quadrant pain. Since then she's had a decreased by mouth intake, diffuse abdominal pain that starts in the left upper quadrant and then radiates down to the left lower quadrant. She denies any fever, chills, blood in her stools, constipation, any viral like syndrome is within the past week or 2, any cough, chest pain, urinary frequency. She denies being an avid alcohol abuser but did have a glass of wine day night. She denies any use of NSAIDs, or any blood pressure medications like hydrochlorothiazide or chlorthalidone. She denies any previous episodes of similar kind of abdominal pain that she describes as more of a discomfort. She has never smoked and family history is pertinent for pancreatic cancer in her father. She called her primary care physician and went to walk-in clinic and was advised to come to the ER. For rest of the history please refer to Dr. Lamb's note above. Vitals at the time of admission blood pressure over 148/90, tachycardic to 106, respiratory rate 20, saturating 94% on room air. On physical exam She is alert, oriented 3 and in no acute distress. HEENT revealed PERRLA, dry mucous membranes. Examination of the neck did not reveal any JVD. Cardiovascular exam was pertinent for normal S1, S2, grade 3 x 6 systolic murmur heard best at the right sternal border. Auscultation of the chest reveals lungs clear to auscultation bilaterally. Abdominal exam was pertinent for normal bowel sounds in all 4 quadrants, abdomen soft, tender in the left upper and lower quadrant. There is also CVA tenderness on the left side Labs pertinent for leukocytosis with a white blood cell count of 13,100, normal H&H of 14.0/41.2 and a platelet count 207,000. Serum chemistries revealed sodium of 133, potassium of 4.3, elevated BUN of 22, creatinine 0.9 and glucose of 110. Lactic acid was within normal limits at 1.4., With hypercalcemia of 10.4. LFTs unremarkable with a total bili of 1.2, AST/ALT 30/21 and an alkaline phosphatase of 69. His lipase elevated to 6700 and amylase 1463. UA was not received. CT abdomen and pelvis revealed mild peripancreatic inflammatory changes and minimal free fluid surrounding the distal pancreatic tail and body tracking to the left upper quadrant of the abdomen. There is also mild to moderate hydronephrosis. Hydronephrosis of the left kidney and left renal collecting system to the level of the distal left ureter approximately 1 cm from the left ureterovesicular junction with no visible obstructing left-sided ureteral stone. There are multiple bilateral simple renal cortical cysts and parapelvic cysts. There is also pancolonic diverticulosis without evidence of acute diverticulitis. Echocardiogram was in June 2016 showed a normal left ventricular ejection fraction of 60%, mild left atrial enlargement, mild mitral regurg with moderate tricuspid regurg and moderate to severe stenosis involving coronary hypertension. In the ER she received a bolus of normal saline and was started on lactated Ringer's. Assessment and plan Admit patient to general medicine # Abdominal pain Most likely secondary to pancreatitis (2/2 hypercalcemia??, no hx of NSAIDs, viral illness, medications, negative Lainez's) given elevated lipase and amylase. She could also have pyelonephritis as she does have left CVA tenderness. Symptomatic treatment for now with IV fluids at 150 and pulse per hour Nothing by mouth for now and advance diet as tolerated Zofran 4 mg every 6 when necessary IV for nausea Optimize pain management with morphine. Follow-up triglyceride level Send UA to further evaluate for urinary tract infection and/or any obstructive pathology. Strict is and os for now Consider getting ultrasound abdomen to further evaluate for gallstones Urology consult in AM. #Hyperthyroidism Continue on Synthroid 100 mg daily #Hyperlipidemia Continue on simvastatin 20 mg daily #Hypertension Increase amlodipine from 2.5 mg daily to 5mg daily. Hold lisinopril 20 mg for now, can ppt pancreatitis. #DVT prophylaxis On Pradaxa - Diet Nothing by mouth for now CODE STATUS DNR/DNI ALEXANDER HUSTON MD 09/04/16 7085: Attending MD Review Statement Attending Statement Attending MD Statement: examined this patient, discuss w/resident/PA/OFFC SPEC, agreed w/resident/PA/OFFC SPEC, reviewed EMR data (avail) Attending Assessment/Plan: 86F PMH paroxysmal atrial fibrillation on Pradaxa, HTN, CAD, right brachial artery embolus presenting with epigastric pain, nausea, and vomiting in the setting of acute pancreatitis. Normal lipids, no alcohol intake, no new meds or supplements. No evidence of biliary dilitation or elevated obstructive LFTs on labs. Abdomen mildly tender, vitals stable, labs reviewed. CT abdomen shows pancreatic inflammation and left hydronephrosis. 1. Acute idiopathic pancreatitis 2. Left hydronephrosis 3. Dehydration 4. Nausea and vomiting Plan - Admit to general medicine - IV hydration - NPO - Zofran PRN - Morphine PRN - Monitor electrolytes and replete - Renal ultrasound - Monitor urine output - Consider urology involvement if retention or evidence of blockage - Review medication list for medications that may induce pancreatitis - Continue Pradaxa
--- NOTE | 2016-09-04 15:22 | NUR ---
HOUSE STAFF AT BEDSIDE
--- NOTE | 2016-09-04 16:09 | NUR ---
PHARMACY CALLED FOR MEDS
--- NOTE | 2016-09-04 16:51 | NUR ---
PT TO US AT THIS TIME
--- NOTE | 2016-09-04 16:59 | Admission Certification ---
Admission Certification Certification Statement - As attending physician, I certify that at the time of - admission, based on clinical presentation, severity of - symptoms, need for further diagnostic testing and - therapeutic interventions, and risk of adverse outcomes - without in-hospital treatment, in my clinical assessment, - this patient requires an acute hospital stay for a minimum - of two nights or longer. I have also considered psychsocial - factors such as support system, advanced age, financial - issues, cognitive issues, and failed out-patient treatments, - past re-admission history, safety of patient, and lack of - compliance as applicable. Specific rationale supporting this admission is: Acute pancreatitis and left hydronephrosis
--- NOTE | 2016-09-04 17:01 | NUR ---
PT ASSIGNED TO ROOM 220-1
--- NOTE | 2016-09-04 17:18 | NUR ---
PHARMACY CALLED FOR LIPITOR. PT RETURNED FROM CT SCAN
--- NOTE | 2016-09-04 17:39 | NUR ---
ATTEMPTED TO CALL REPORT. NURSE FROM FLOOR TO CALL BACK FOR REPORT
--- NOTE | 2016-09-04 17:42 | NUR ---
PT MEDICATED WITH LIPITOR, PT REQUEST THAT SHE BE ALLOWED TO REST AND THAT STAFF COMES IN AND OUT OF THE ROOM TO MUCH. THIS NURSE APOLOGIZED FOR DISTURBING HER AND DOOR CLOSED PER HER REQUEST, CALL LIGHT IN REACH, PT ORIENTED TO CALL IF SHE NEEDS ANYTHING. PT STATES THAT SHE STILL DOES NOT HAVE TO URINATE AND THAT SHE WILL LET THIS NURSE KNOW WHEN SHE DOES. REQUEST THAT STAFF STOP ASKING HER IF SHE HAS TO GO. DAUGHTER STATES THAT AT HOME PT AMBULATES WITH NO ASSISTANCE AND THAT IF SHE GOES OUT SHE WILL USE A CANE.
[2016-09-04 21:55] VITALS: BP 140/70
--- NOTE | 2016-09-04 22:42 | NUR ---
PATIENT ALERT AND ORIENTED X 3. C/O PAIN @ 4/10 TO LEFT ABDOMEN. ADMISSION COMPLETE. IV TO LAC # 20 INSERTED IN ER. DAUGHTER AT BEDSIDE AT TIME OF ADMISSION. CALL LIGHT WITH IN REACH. WILL CONTINUE TO MONITOR.
--- NOTE | 2016-09-05 05:57 | PN- Housestaff ---
GABE CABRALES,[facility] 09/05/16 0556: Subjective Follow-up For: Abdominal Pain Subjective: Ms Veloz was seen and examined this morning. She is resting comfortably in bed. She reports no acute issues overnight. She states that she feels better. She is still experiencing some mild abdominal discomfort. Rated at a 4 out of 10 in severity. More prominent in the left upper quadrant. Patient denies any fever, chills, nausea, vomiting. Patient denies any urinary frequency, dysuria, hematuria, or urinary changes. Review of Systems Constitutional: Reports: see HPI. Objective Last 24 Hrs of Vital Signs/I&O Vital Signs Date Time Temp Pulse Resp B/P Pulse O2 O2 Flow FiO2 Ox Delivery Rate 09/04 2213 80 140/70 09/04 2155 99.2 80 20 140/70 95 / 1831 178/80 09/04 1724 99.1 90 18 182/86 94 Room Air 09/04 1535 98.9 102 18 171/74 94 Room Air 09/04 1320 148/90 09/04 1240 Room Air 09/04 1159 97.9 106 20 99/67 94 Room Air Intake & Output 09/05 0800 09/05 0000 09/04 1600 Intake Total 450 700 Output Total 300 Balance 150 700 Intake, IV 450 700 Intake, Oral 0 0 Output, Urine 300 Patient 63.503 kg 65.771 kg Weight Physical Exam General Appearance: Alert, Oriented X3, Cooperative, No Acute Distress Cardiovascular: Normal S1, Normal S2, Irregular Rate and Rhythm Lungs: Clear to Auscultation, Normal Air Movement Abdomen: Normal Bowel Sounds, Soft, Tenderness on Deep palpation Left: CVA tenderness Neurological: Normal Speech Extremities: No Cyanosis, No Edema, Normal Pulses Vascular: Normal Pulses Current Medications: Current Medications Sig/James Start time Last Medication Dose Route Stop Time Status Admin Acetaminophen 650 MG Q6 PRN 09/04 1530 AC PO Amlodipine Besylate 5 MG DAILY 09/05 1000 AC PO Amlodipine Besylate 2.5 MG DAILY 09/04 1545 DC PO Atorvastatin Calcium 10 MG 1700 09/04 1700 AC 09/04 PO 1742 Dabigatran 150 MG BID 09/04 2200 AC 09/04 PO 2213 Lactated Ringer's 1,000 ML Q6H 09/04 1545 AC 09/05 IV 0132 Lactated Ringer's 1,000 ML ONCE ONE 09/04 1400 DC 09/04 IV 09/04 2039 1354 Levothyroxine Sodium 0.1 MG DAILY AC 09/04 1545 AC 09/05 PO 0542 Lisinopril 20 MG DAILY 09/04 1545 DC PO Metoprolol Tartrate 100 MG BID 09/04 2200 AC 09/04 PO 2213 Morphine Sulfate 2 MG Q6PRN PRN 09/04 1530 AC IV Ondansetron HCl 4 MG Q6P PRN 09/04 1600 AC IV Oxycodone HCl 5 MG Q6 PRN 09/04 1530 AC PO Sodium Chloride 1,000 ML BOLUS ONE 09/04 1315 DC 09/04 IV 09/04 1414 1322 Last 24 Hrs of Lab/Markus Results Last 24 Hrs of Labs/Mics: Laboratory Tests 09/05/16 0730: Anion Gap 7, Estimated GFR > 60, BUN/Creatinine Ratio 22.5, Amylase 514 H, Lipase 556 H, CBC w Diff NO MAN DIFF REQ, RBC 3.70 L, MCV 93.9, MCH 31.8 H, RDW 14.3, MPV 9.1, Gran % 82.4 H, Lymphocytes % 11.3 L, Monocytes % 5.9, Eosinophils % 0.2, Basophils % 0.2, Absolute Granulocytes 12.3 H, Absolute Lymphocytes 1.7, Absolute Monocytes 0.9 H, Absolute Eosinophils 0, Absolute Basophils 0, PUBS MCHC 33.9 09/04/16 1930: Urine Color YEL, Urine Clarity HAZY H, Urine pH 6.0, Ur Specific [place] 1.015, Urine Protein TRACE H, Urine Ketones TRACE H, Urine Nitrite NEG, Urine Bilirubin NEG, Urine Urobilinogen 0.2, Ur Leukocyte Esterase SMALL H, Ur Microscopic SEDIMENT EXAMINED, Urine RBC 3-5, Urine WBC > 75 H, Ur Epithelial Cells MANY H, Urine Bacteria FEW H, Hyaline Casts RARE H, Urine Hemoglobin SMALL H, Urine Glucose NEG 09/04/16 1642: Lactic Acid 1.5 09/04/16 1327: Lactic Acid 1.4 09/04/16 1250: Anion Gap 11, Estimated GFR 59 L, BUN/Creatinine Ratio 24.4, Glucose 110 H, Calcium 10.4 H, Total Bilirubin 1.2, AST 34, ALT 21, Alkaline Phosphatase 69, Lactate Dehydrogenase 670 H, Total Protein 6.8, Albumin 4.0, Globulin 2.8, Albumin/Globulin Ratio 1.4, Triglycerides 78, Amylase 1463 H, Lipase 6700 H, CBC w Diff MAN DIFF ORDERED, RBC 4.43, MCV 93.0, MCH 31.5 H, RDW 14.2, MPV 8.6, Gran % 86.4 H, Lymphocytes % 7.4 L, Monocytes % 5.9, Eosinophils % 0, Basophils % 0.3, Absolute Granulocytes 11.3 H, Absolute Lymphocytes 1.0 L, Absolute Monocytes 0.8 H, Absolute Eosinophils 0, Absolute Basophils 0, Platelet Estimate ADEQUATE, Normocytic RBCs VERIFIED, Normochromic RBCs VERIFIED , PUBS MCHC 33.9 Microbiology 09/04 1929 URINE ROUT: Urine Culture - RES Assessment/Plan Assessment: This is an 86-year-old female with past medical history of atrial fibrillation ( recently started on Pradaxa), right brachial artery embolus, hypothyroidism and coronary artery disease who presented to the emergency department with worsening abdominal pain. Elevation in enzymes (amylase and lipase) and imaging studies likely suggest pancreatitis as a source of her pain. #Abdominal pain Patient does not seem to have any clear causes of what may predispose her to pancreatitis. She denies heavy alcohol use. Denies any new medications that may be contribute to pancreatitis and denies any history of gallstones in the past. Calcium level is slightly increased, however not a likely cause. We can check triglycerides, triglycerides WNL Abdominal Ultrasound showed Normal Gall bladder, no cholelithiasis. Aggressive IV hydration. Repeat BEP in a.m. Morphine for severe pain. Symptoms not resolving in a.m. consider GI consult. Trend lactic acid to ensure hypoperfusion does not occur. If lactic acid continues to increase consider CT of abdomen to rule out ischemia. Zofran when necessary for nausea. #Incidental finding of left hydronephrosis. Patient did complain of left-sided CVA tenderness. Imaging study did not show any evidence of visible obstructing ureteral stones. Monitor patient overnight if continues to experience pain in left flank consider repeat imaging. Urology consult obtained #History of hypertension. Amlodipine 5 mg Current BP: 158/60 Hold Abdulaziz for now Continue calcium channel ashley. #History of atrial fibrillation Continue Pradaxa Consider cardiology consult in a.m. if patient's cardiac function deteriorates or patient complains of chest pain. History of hypothyroidism Continue Synthroid Check TSH free T4. #Diet Diet Advanced to Clears. Literature suggest that By mouth intake as soon as the patient feels ready to begin po intake improves prognosis. #Dvt Prophylaxis: Pradaxa #code DNR/DNI Problem List: 1. Pancreatitis 2. Atrial fibrillation Pain Ratin Pain Location: Abdominal Pain Pain Goal: Remain pain free Pain Plan: Oxycodone Morphine Sulphate Tomorrow's Labs & Rationales: BEP: Monitor Electrolytes in the setting of Acute Pancreatitis. CBC: Monitor White cell count in the setting of Pancreatitis SAW KEYES MD 09/05/16 1131: Attending MD Review Statement Attending Statement Attending MD Statement: examined this patient, discuss w/resident/PA/LANDSCAPE LABORER, agreed w/resident/PA/LANDSCAPE LABORER, reviewed EMR data (avail), discussed with nursing, discussed with case mgmt, reviewed images, amended to note Attending Assessment/Plan: Patient seen and examined, feels better today. Abd pain has improved, denies any nausea/ vmitng. Has some appetite. Vital Signs Date Time Temp Pulse Resp B/P Pulse O2 O2 Flow FiO2 Ox Delivery Rate 09/05 0902 77 140/70 09/05 0901 77 140/70 / 0800 Room Air / 0625 98.6 75 20 142/76 93 Room Air /06 2213 80 140/70 03/06 2155 99.2 80 20 140/70 95 03/06 1831 178/80 03/06 1724 99.1 90 18 182/86 94 Room Air / 1535 98.9 102 18 171/74 94 Room Air /06 1320 148/90 /06 1240 Room Air 03/06 1159 97.9 106 20 99/67 94 Room Air on exam; ax3, nad. cv; s1, s2, rrr + systlic murmur. resp; clear. abd; soft, tender in luq, bs+, + tenderness in l cva. ext; no edema Laboratory Tests 09/05 09/04 0730 1930 Chemistry Sodium (137 - 145 mmol/L) 134 L Potassium (3.5 - 5.1 mmol/L) 3.7 Chloride (98 - 107 mmol/L) 101 Carbon Dioxide (22 - 30 mmol/L) 26 Anion Gap (5 - 16) 7 BUN (7 - 17 mg/dL) 18 H Creatinine (0.5 - 1.0 mg/dL) 0.8 Estimated GFR (>60 ml/min) > 60 BUN/Creatinine Ratio (7 - 25 %) 22.5 Amylase (30 - 110 U/L) 514 H Lipase (23 - 300 U/L) 556 H Hematology CBC w Diff NO MAN DIFF REQ WBC (4.8 - 10.8 /CUMM) 15.0 H RBC (4.20 - 5.40 /CUMM) 3.70 L Hgb (12.0 - 16.0 G/DL) 11.8 L Hct (37 - 47 %) 34.7 L MCV (81.0 - 99.0 FL) 93.9 MCH (27.0 - 31.0 PG) 31.8 H RDW (11.5 - 14.5 %) 14.3 Plt Count (130 - 400 /CUMM) 172 MPV (7.4 - 10.4 FL) 9.1 Gran % (42.2 - 75.2 %) 82.4 H Lymphocytes % (20.5 - 51.1 %) 11.3 L Monocytes % (1.7 - 9.3 %) 5.9 Eosinophils % (0 - 5 %) 0.2 Basophils % (0.0 - 2.0 %) 0.2 Absolute Granulocytes (1.4 - 6.5 /CUMM) 12.3 H Absolute Lymphocytes (1.2 - 3.4 /CUMM) 1.7 Absolute Monocytes (0.10 - 0.60 /CUMM) 0.9 H Absolute Eosinophils (0.0 - 0.7 /CUMM) 0 Absolute Basophils (0.0 - 0.2 /CUMM) 0 PUBS MCHC (33.0 - 37.0 G/DL) 33.9 Urines Urine Color (YEL,AMB,STR) YEL Urine Clarity (CLEAR) HAZY H Urine pH (5.0 - 8.0) 6.0 Ur Specific [place] (1.001 - 1.035) 1.015 Urine Protein (NEG,<30 MG/DL) TRACE H Urine Ketones (NEG) TRACE H Urine Nitrite (NEG) NEG Urine Bilirubin (NEG) NEG Urine Urobilinogen (0.1 - 1.0 EU/dl) 0.2 Ur Leukocyte Esterase (NEG) SMALL H Ur Microscopic SEDIMENT EXAMINED Urine RBC (0 - 5 /HPF) 3-5 Urine WBC (0 - 2 /HPF) > 75 H Ur Epithelial Cells (NONE,FEW) MANY H Urine Bacteria (NEG/NONE) FEW H Hyaline Casts (0/LPF) RARE H Urine Hemoglobin (NEG) SMALL H Urine Glucose (N MG/DL) NEG 09/04 09/04 09/04 1642 1327 1250 Chemistry Sodium (137 - 145 mmol/L) 133 L Potassium (3.5 - 5.1 mmol/L) 4.3 Chloride (98 - 107 mmol/L) 98 Carbon Dioxide (22 - 30 mmol/L) 24 Anion Gap (5 - 16) 11 BUN (7 - 17 mg/dL) 22 H Creatinine (0.5 - 1.0 mg/dL) 0.9 Estimated GFR (>60 ml/min) 59 L BUN/Creatinine Ratio (7 - 25 %) 24.4 Glucose (65 - 99 mg/dL) 110 H Lactic Acid (0.7 - 2.1 mmol/L) 1.5 1.4 Calcium (8.4 - 10.2 mg/dL) 10.4 H Total Bilirubin (0.2 - 1.3 mg/dL) 1.2 AST (14 - 36 U/L) 34 ALT (9 - 52 U/L) 21 Alkaline Phosphatase (<127 U/L) 69 Lactate Dehydrogenase (313 - 618 U/L) 670 H Total Protein (6.3 - 8.2 g/dL) 6.8 Albumin (3.5 - 5.0 g/dL) 4.0 Globulin (1.9 - 4.2 gm/dL) 2.8 Albumin/Globulin Ratio (1.1 - 2.2 %) 1.4 Triglycerides (<150 mg/dL) 78 Amylase (30 - 110 U/L) 1463 H Lipase (23 - 300 U/L) 6700 H Hematology CBC w Diff MAN DIFF ORDERED WBC (4.8 - 10.8 /CUMM) 13.1 H RBC (4.20 - 5.40 /CUMM) 4.43 Hgb (12.0 - 16.0 G/DL) 14.0 Hct (37 - 47 %) 41.2 MCV (81.0 - 99.0 FL) 93.0 MCH (27.0 - 31.0 PG) 31.5 H RDW (11.5 - 14.5 %) 14.2 Plt Count (130 - 400 /CUMM) 207 MPV (7.4 - 10.4 FL) 8.6 Gran % (42.2 - 75.2 %) 86.4 H Lymphocytes % (20.5 - 51.1 %) 7.4 L Monocytes % (1.7 - 9.3 %) 5.9 Eosinophils % (0 - 5 %) 0 Basophils % (0.0 - 2.0 %) 0.3 Absolute Granulocytes (1.4 - 6.5 /CUMM) 11.3 H Absolute Lymphocytes (1.2 - 3.4 /CUMM) 1.0 L Absolute Monocytes (0.10 - 0.60 /CUMM) 0.8 H Absolute Eosinophils (0.0 - 0.7 /CUMM) 0 Absolute Basophils (0.0 - 0.2 /CUMM) 0 Platelet Estimate (ADEQUATE) ADEQUATE Normocytic RBCs VERIFIED Normochromic RBCs VERIFIED PUBS MCHC (33.0 - 37.0 G/DL) 33.9 A/P; 86 y/o F with pmh sig for atrial fibrillation, coronary artery disease, hypothyroidism, right brachial artery embolus, admitted with abd pain, acute pancreatitis, and left sided hydroureteronehrsis of unclear etiology. Will start clears today. Decrease the rate of IVFs and ultimately DC once patient able to tolerate diet. Pt denies ETOH, No gall stones. Pradaxa was a new med and pt also on ABDULAZIZ. Continue all other current meds. DVT Px; Pradaxa. Please order PT.
[2016-09-05 06:25] VITALS: BP 142/76
--- NOTE | 2016-09-05 08:07 | ULTRASOUND REPORT ---
EXAMINATION: US ABDOMEN LIMITED (RIGHT UPPER QUADRANT) ULTRASOUND KIDNEYS AND BLADDER CLINICAL INFORMATION: Pancreatitis. Left CVA tenderness. Rule out cholelithiasis. Rule out renal stones, obstruction. COMPARISON: CT abdomen pelvis from the same date at 1:11 AM p.m. TECHNIQUE: Real-time imaging of the right upper quadrant abdominal viscera. A renal ultrasound was subsequently ordered after the abdominal ultrasound was performed. Color Doppler and grayscale images are obtained through both kidneys and the bladder. FINDINGS: ABDOMEN: PANCREAS: No slight fullness of the pancreas which may be related to the underlying pancreatitis. Echogenicity of the pancreas is within normal limits. No duct dilatation is identified. LIVER: Normal. The liver demonstrates normal size, contour and echogenicity. No focal lesion or intrahepatic biliary duct dilatation. GALLBLADDER: Normal. The gallbladder is physiologically distended without evidence of stones, sludge, polyps, wall thickening or pericholecystic fluid. COMMON BILE DUCT: Normal in caliber measuring 0.3 cm in diameter. RIGHT KIDNEY: A 1.7 x 1.3 x 1.6 cm simple cyst is present in the upper pole. No hydronephrosis. No renal calculi or suspicious parenchymal lesions. The kidney measures 10.3 cm in maximum dimension. FREE FLUID: None. KIDNEYS/BLADDER: RIGHT KIDNEY: No hydronephrosis. No renal calculi or suspicious parenchymal lesions. The kidney measures 10 x 3 x 5.9 x 4.0 cm. A 1.5 x 2.2 x 1.9 cm simple cyst is present at the upper pole. LEFT KIDNEY: Sonographic evaluation of the left kidney is limited. It was measured at 6.3 x 4.1 x 3.7 cm, though it is, in fact, at least 9 cm in length as measured on the recent CT. There is cortical thinning, consistent with early atrophy. Moderate hydronephrosis is noted. No abnormal increased blood flow to indicate pyelonephritis. A 3.8 x 3.2 x 3.3 cm simple cyst is present within the lower pole the upper pole cyst seen on the prior study is not well seen on the current ultrasound. No renal calculi identified. BLADDER: Full and normal in appearance. Bladder wall is unremarkable. No ureteral jets are identified. IMPRESSION: Abdomen: 1. Normal gallbladder. No cholelithiasis. 2. Mild fullness of the pancreas is may correspond to known pancreatitis. Kidneys: 1. Moderate left-sided hydronephrosis. 2. No nephrolithiasis. Sonographic evaluation of the kidneys is somewhat limited due to body habitus. 3. Multiple bilateral simple appearing renal cysts
[2016-09-05 08:28] LABS: ABSOLUTE BASOPHIL COUNT 0 /CUMM (0.0-0.2); ABSOLUTE EOSINOPHIL COUNT 0 /CUMM (0.0-0.7); ABSOLUTE LYMPH COUNT 1.7 /CUMM (1.2-3.4); BASOPHIL % 0.2 % (0.0-2.0)
[2016-09-05 08:51] LABS: ABSOLUTE GRANULOCYTE CT 12.3 /CUMM (1.4-6.5); ABSOLUTE MONOCYTE COUNT 0.9 /CUMM (0.10-0.60); EOSINOPHIL % 0.2 % (0-5); MEAN CORPUSCULAR HGB 31.8 PG (27.0-31.0); MEAN CORPUSCULAR HGB CONC 33.9 G/DL (33.0-37.0); MEAN CORPUSCULAR VOLUME 93.9 FL (81.0-99.0); MEAN PLATELET VOLUME 9.1 FL (7.4-10.4); PLATELET COUNT 172 /CUMM (130-400); RBC DISTRIBUTION WIDTH 14.3 % (11.5-14.5)
[2016-09-05 08:56] LABS: HEMATOCRIT 34.7 % (37-47)
[2016-09-05 09:25] LABS: GRANULOCYTE % 82.4 % (42.2-75.2)
[2016-09-05 14:28] VITALS: BP 158/60
--- NOTE | 2016-09-05 16:59 | Cons- Urology ---
General Information and HPI Consulting Request Date of Consult: 09/05/16 Requested By: SAW KEYES MD Reason for Consult: LEFT HYDRONEPHROSIS-NO STONE/TUMOR SEEN ON CT Source of Information: patient, old records Exam Limitations: no limitations History of Present Illness: 86 Allergies/Medications Allergies: Coded Allergies: No Known Drug Allergies (06/29/16) Home Med List: Amlodipine (Norvasc) 2.5 MG TABLET 1 TAB PO DAILY D (Reported) Dabigatran Etexilate Mesylate (Pradaxa 150 MG) 150 MG CAPSULE 1 CAP PO BID blood thinner Levothyroxine Sodium (Synthroid) 100 MCG TABLET 1 TAB PO DAILY AC THYROID ( Reported) Lisinopril 20 MG TABLET 1 TAB PO DAILY HTN (Reported) Metoprolol Tartrate (Lopressor) 100 MG TABLET 1 TAB PO BID HEART (Reported) Simvastatin (Zocor*) 20 MG TABLET 1 TAB PO DAILY CHOLESTEROL (Reported) Current Medications: Current Medications Sig/James Start time Last Medication Dose Route Stop Time Status Admin Acetaminophen 650 MG Q6 PRN 09/04 1530 AC PO Amlodipine Besylate 5 MG DAILY 09/05 1000 AC 09/05 PO 0901 Atorvastatin Calcium 10 MG 1700 09/04 1700 AC 09/04 PO 1742 Dabigatran 150 MG BID 09/04 2200 AC / PO 0902 Lactated Ringer's 1,000 ML Q6H 09/04 1545 AC / IV 0906 Lactated Ringer's 1,000 ML ONCE ONE 09/04 1400 DC 03/ IV 09/04 2039 1354 Levothyroxine Sodium 0.1 MG DAILY AC 09/04 1545 AC 09/05 PO 0542 Metoprolol Tartrate 100 MG BID 09/04 2200 AC 09/05 PO 0902 Morphine Sulfate 2 MG Q6PRN PRN 09/04 1530 AC IV Ondansetron HCl 4 MG Q6P PRN 09/04 1600 AC IV Oxycodone HCl 5 MG Q6 PRN 09/04 1530 AC PO Patient Medication 1 ED .STK-MED ONE 09/05 1413 TN Teaching ED 09/05 1414 Past History Medical History Blood Transfusion Hx: Yes Neurological: NONE EENT: NONE Cardiovascular: AFIB, hypertension, hyperlipidemia Respiratory: NONE Gastrointestinal: NONE Hepatic: NONE Renal: NONE Musculoskeletal: NONE Psychiatric: NONE Endocrine: hypothyroidism Blood Disorders: NONE Cancer(s): NONE INVESTIGATIVE WRITER/Reproductive: NONE Other Medical Hx: dvt upper extremity Surgical History Pertinent Surgical History: appendectomy Psychosocial History Where Do You Live? Home Who Do You Live With? child Services at Home: None Primary Language: [facility] Smoking Status: Never Smoked ETOH Use: occasional use Illicit Drug Use: denies illicit drug use Living Will? unknown Power of Clinical Specialist Vascular/HCP? unknown Name of POA/HCP: unknown Functional Ability ADLs Independent: dressing, eating, toileting, bathing. Ambulation: independent IADLs Independent: medication admin. Employment History Retired? yes Review of Systems Review of Systems Constitutional: Reports: weakness. EENTM: Denies: no symptoms. Cardiovascular: Denies: no symptoms. Respiratory: Denies: no symptoms. GI: Reports: abdominal pain, bloating. Genitourinary: Reports: no symptoms. Musculoskeletal: Reports: no symptoms. Skin: Reports: no symptoms. Exam & Diagnostic Data Vital Signs and I&O Vital Signs Date Time Temp Pulse Resp B/P Pulse O2 O2 Flow FiO2 Ox Delivery Rate 09/05 1428 98.8 97 20 158/60 98 Room Air 09/05 0902 77 140/70 09/05 0901 77 140/70 09/05 0800 Room Air 09/05 0625 98.6 75 20 142/76 93 Room Air 09/04 2213 80 140/70 /06 2155 99.2 80 20 140/70 95 /06 1831 178/80 /06 1724 99.1 90 18 182/86 94 Room Air Intake & Output 09/05 1600 09/05 0800 09/05 0000 09/04 1600 09/04 0800 09/04 0000 Intake Total 1320 450 700 Output Total 300 Balance 1320 150 700 Intake, IV 1200 450 700 Intake, Oral 120 0 0 Output, Urine 300 Patient 140 lb 145 lb Weight Physical Exam General Appearance: well developed/nourished, no apparent distress, alert, awake Head: atraumatic Eyes: Bilateral: normal appearance. Neck: normal inspection Respiratory: normal breath sounds Cardiovascular: regular rate/rhythm Back: no vertebral tenderness Extremities: normal inspection Skin: intact, normal color, warm/dry Last 24 Hours of Labs: Laboratory Tests 09/05 09/04 0730 1930 Chemistry Sodium (137 - 145 mmol/L) 134 L Potassium (3.5 - 5.1 mmol/L) 3.7 Chloride (98 - 107 mmol/L) 101 Carbon Dioxide (22 - 30 mmol/L) 26 Anion Gap (5 - 16) 7 BUN (7 - 17 mg/dL) 18 H Creatinine (0.5 - 1.0 mg/dL) 0.8 Estimated GFR (>60 ml/min) > 60 BUN/Creatinine Ratio (7 - 25 %) 22.5 Amylase (30 - 110 U/L) 514 H Lipase (23 - 300 U/L) 556 H Hematology CBC w Diff NO MAN DIFF REQ WBC (4.8 - 10.8 /CUMM) 15.0 H RBC (4.20 - 5.40 /CUMM) 3.70 L Hgb (12.0 - 16.0 G/DL) 11.8 L Hct (37 - 47 %) 34.7 L MCV (81.0 - 99.0 FL) 93.9 MCH (27.0 - 31.0 PG) 31.8 H RDW (11.5 - 14.5 %) 14.3 Plt Count (130 - 400 /CUMM) 172 MPV (7.4 - 10.4 FL) 9.1 Gran % (42.2 - 75.2 %) 82.4 H Lymphocytes % (20.5 - 51.1 %) 11.3 L Monocytes % (1.7 - 9.3 %) 5.9 Eosinophils % (0 - 5 %) 0.2 Basophils % (0.0 - 2.0 %) 0.2 Absolute Granulocytes (1.4 - 6.5 /CUMM) 12.3 H Absolute Lymphocytes (1.2 - 3.4 /CUMM) 1.7 Absolute Monocytes (0.10 - 0.60 /CUMM) 0.9 H Absolute Eosinophils (0.0 - 0.7 /CUMM) 0 Absolute Basophils (0.0 - 0.2 /CUMM) 0 PUBS MCHC (33.0 - 37.0 G/DL) 33.9 Urines Urine Color (YEL,AMB,STR) YEL Urine Clarity (CLEAR) HAZY H Urine pH (5.0 - 8.0) 6.0 Ur Specific [place] (1.001 - 1.035) 1.015 Urine Protein (NEG,<30 MG/DL) TRACE H Urine Ketones (NEG) TRACE H Urine Nitrite (NEG) NEG Urine Bilirubin (NEG) NEG Urine Urobilinogen (0.1 - 1.0 EU/dl) 0.2 Ur Leukocyte Esterase (NEG) SMALL H Ur Microscopic SEDIMENT EXAMINED Urine RBC (0 - 5 /HPF) 3-5 Urine WBC (0 - 2 /HPF) > 75 H Ur Epithelial Cells (NONE,FEW) MANY H Urine Bacteria (NEG/NONE) FEW H Hyaline Casts (0/LPF) RARE H Urine Hemoglobin (NEG) SMALL H Urine Glucose (N MG/DL) NEG Imaging Results: PATIENT: HEIDE CERON PRESENT AGE: 86 PATIENT ACCOUNT NO: [id number] : 29 LOCATION: [facility] ORDERING PHYSICIAN: YSABEL CHADWICK SERVICE DATE: 09/04/16 EXAM TYPE: CAT - CT ABD & PELVIS W IV CONTRAST EXAMINATION: CT ABDOMEN AND PELVIS WITH CONTRAST CLINICAL INFORMATION: Diffuse abdominal pain. COMPARISON: None. TECHNIQUE: Multidetector volumetric imaging was performed of the abdomen and pelvis before and after the IV administration of 95 mL of Optiray 320 intravenous contrast. Sagittal and coronal reformatted images were obtained on the technologist's workstation. DLP: 360 mGy-cm FINDINGS: LUNG BASES: Evaluation of the included lung bases demonstrates scarring/atelectasis within the right middle lobe and to a lesser extent within the right lung base. No pleural or pericardial effusions are identified. LIVER, GALLBLADDER, AND BILIARY TREE: The liver is normal in size, shape, and attenuation. There is a geographic region of hypoattenuation within the left hepatic lobe, adjacent to the falciform ligament. This finding is nonspecific but is characteristic in location for focal fatty infiltration of the liver. No focal hepatic lesion or biliary ductal dilatation is present. The gallbladder is unremarkable with no evidence of radiopaque gallstones, gallbladder wall thickening, or obvious pericholecystic inflammatory changes. PANCREAS: There are peripancreatic inflammatory changes surrounding the distal pancreatic body and tail, with minimal fluid visualized surrounding the distal pancreatic body and tail and extending contiguously into the left upper quadrant of the abdomen and minimally into the left paracolic gutter. There is mild generalized pancreatic atrophy. No organizing peripancreatic fluid collections are identified. There is fatty infiltration of the pancreas. SPLEEN: Unremarkable. ADRENAL GLANDS: Unremarkable. KIDNEYS AND URETERS: Evaluation of the bilateral kidneys and renal collecting systems is notable for multiple bilateral simple renal cortical cysts and parapelvic cysts visualized measuring up to 4 cm along the lower pole of the left kidney and 1.8 cm along the upper pole of the right kidney. Of note, there is mild to moderate hydroureteronephrosis of the left kidney and left renal collecting system to the level of the distal left ureter, approximately 1 cm from the left ureterovesicular junction. There are no visible obstructing ureteral stones. There is no appreciable nephrolithiasis of either kidney. BLADDER: Under distended but otherwise unremarkable, without visible bladder stones. GASTROINTESTINAL TRACT: Pancolonic diverticulosis, most extensive along the descending and rectosigmoid colon, without secondary signs of acute diverticulitis. Normal anatomic orientation of the stomach relative to the duodenum. Normal caliber of abdominal and pelvic bowel loops, without findings indicative of obstruction or ileus. Nonvisualization of the appendix. No acute inflammatory changes within the right lower quadrant of the abdomen. ABDOMINAL WALL: No significant hernia is appreciated. LYMPH NODES: No significant abdominal or pelvic adenopathy. VASCULAR: Extensive atherosclerosis of the abdominal aorta and its branching vessels, without aneurysmal dilatation. The infrarenal abdominal aorta is ectatic and is visualized measuring 2.6 x 2.8 cm in AP and transverse dimensions respectively (series 2, image 33). PELVIC VISCERA: A minimal amount of free pelvic fluid. No adnexal masses. OSSEOUS STRUCTURES: No acute osseous abnormality. Mild right convex curvature of the lumbar spine. Chronic compression deformity involving the T11 vertebral body. Moderate degenerative changes of the lower lumbar spine. IMPRESSION: 1. Mild peripancreatic inflammatory changes and minimal free fluid surrounding the distal pancreatic tail and body and tracking contiguously into the left upper quadrant of the abdomen. Primary diagnostic consideration is for an acute pancreatitis. Correlate with pancreatic enzyme levels. 2. Mild to moderate hydroureteronephrosis of the left kidney and left renal collecting system to the level of the distal left ureter, approximately 1 cm from the left ureterovesicular junction. No visible obstructing left-sided ureteral stone. No appreciable nephrolithiasis of either kidney. Consider urological consultation for further clinical management and workup. 3. Multiple bilateral simple renal cortical cysts and parapelvic cysts. 4. Pancolonic diverticulosis, without secondary signs of acute diverticulitis. Assessment/Plan Assessment/Plan left hydro with normal creatinine and no cvat. possibly congenital UPJ obstruction, or rxn to acute pancreatitis. Would tx per med. for now as clinically, pt does not require immediate stent. Would repeat renal US in 1-2 weeks; or if patient's labs and symptoms worsen. Copies To: LAINE WILLIS MD Consult Acknowledgment - Thank you for your consult request. Attending MD Review Statement Attending Statement Attending MD Statement: examined this patient, discuss w/resident/PA/ADVANCED DEVELOPER Attending Assessment/Plan: left hydro with neg. ucx, asympyomatic, normal creat/BUN, with acute pancreatitis. will monitor closely but NO surgical intervention at this time ( unless clinically worsens). f/u renal US in 1-2 weeks.
--- NOTE | 2016-09-05 18:34 | Patient Discharge Instructions ---
Discharge Instructions General Discharge Information You were seen/treated for: Idiopathic Pancreatitis Left Hydronephrosis You had these procedures: NA Special Instructions: Please follow up with Dr Evans in one week. Please inform your PCP about the medication changes we have made. He may change these again. We did try and call his office to provide him and Update. Please follow up with the urologist in one week. You might need a repeat renal US in 1-2 weeks. We have provided you with a referral. Diet Continue normal diet: No Recommended Diet: Low Fat Acute Coronary Syndrome Inclusion Criteria At DC or during hospital stay patient has or had the following: ACS DIAGNOSIS No Discharge Core Measures Meds if any: Prescribed or Continued at Discharge Meds if any: NOT Prescribed or Continued at Discharge Congestive Heart Failure Inclusion Criteria At DC or during hospital stay patient has or had the following: CHF DIAGNOSIS No Discharge Core Measures Meds if any: Prescribed or Continued at Discharge Meds if any: NOT Prescribed or Continued at Discharge Cerebrovascular accident Inclusion Criteria At DC or during hospital stay patient has or had the following: CVA/TIA Diagnosis No Discharge Core Measures Meds if any: Prescribed or Continued at Discharge Meds if any: NOT Prescribed or Continued at Discharge Venous thromboembolism Inclusion Criteria VTE Diagnosis No VTE Type NONE VTE Confirmed by (Test) NONE Discharge Core Measures - Per Current guidelines, there needs to be overlap - treatment for the first 5 days of Warfarin therapy. - If discharged on Warfarin prior to 5 days of - overlap therapy, the patient will need to be - assessed for post discharge needs including - *Post discharge parental anticoagulation - *Warfarin and/or parental anticoagulation education - *Follow up date to check INR post discharge At least 5 days overlap therapy as Inpatient No Meds if any: Prescribed or Continued at Discharge Note: Overlap Therapy is Warfarin and Anticoagulant Meds if any: NOT Prescribed or Continued at Discharge
[2016-09-05 23:00] VITALS: BP 144/60
[2016-09-06 06:00] VITALS: BP 130/74
--- NOTE | 2016-09-06 06:15 | PN- Housestaff ---
See Addendum Subjective Follow-up For: Pancreatitis Subjective: Patient seen and examined this mirning. Reports that she is feeling better. She states that she is currently pain free. She did mention that she had two loose episodes of stool overnight. She denies any fever, chills, nausea or vomiting. She does express interest in advancing her diet and being able to eat food which she can "use her teeth". Review of Systems Constitutional: Reports: see HPI. Objective Last 24 Hrs of Vital Signs/I&O Vital Signs Date Time Temp Pulse Resp B/P Pulse O2 O2 Flow FiO2 Ox Delivery Rate 09/06 599 98.4 61 20 130/74 97 Room Air 09/05 2300 98.4 86 20 144/60 96 Room Air 09/05 2118 86 144/60 09/05 1428 98.8 97 20 158/60 98 Room Air 09/05 0902 77 140/70 09/05 0901 77 140/70 Intake & Output 09/06 1600 09/06 0800 09/06 0000 Intake Total 650 700 Output Total Balance 650 700 Intake, IV 600 600 Intake, Oral 50 100 Number 1 Bowel Movements Physical Exam General Appearance: Alert, Oriented X3, Cooperative Cardiovascular: Regular Rate, Normal S1, Normal S2 Lungs: Clear to Auscultation Abdomen: Normal Bowel Sounds, Soft, No Tenderness Neurological: Normal Speech, Strength at 5/5 X4 Ext Extremities: No Edema Current Medications: Current Medications Sig/James Start time Last Medication Dose Route Stop Time Status Admin Acetaminophen 650 MG Q6 PRN 09/04 1530 AC PO Amlodipine Besylate 5 MG DAILY 09/05 1000 AC 09/06 PO 1006 Atorvastatin Calcium 10 MG 1700 09/04 1700 AC 09/05 PO 1815 Dabigatran 150 MG BID 09/04 2200 AC / PO 1006 Lactated Ringer's 1,000 ML Q20H / 0745 DC IV Lactated Ringer's 1,000 ML Q6H / 1545 DC / IV 2118 Levothyroxine Sodium 0.1 MG DAILY AC 09/04 1545 AC 09/06 PO 0537 Metoprolol Tartrate 100 MG BID / 2200 AC / PO 1005 Morphine Sulfate 2 MG Q6PRN PRN 09/04 1530 DC IV Ondansetron HCl 4 MG Q6P PRN 09/04 1600 AC IV Oxycodone HCl 5 MG Q6 PRN 09/04 1530 AC PO Patient Medication 1 ED .STK-MED ONE 09/05 1413 DC Teaching ED 09/05 1414 Potassium Chloride 40 MEQ ONCE ONE 09/06 0915 DC 09/06 PO 09/06 0916 1005 Last 24 Hrs of Lab/Markus Results Last 24 Hrs of Labs/Mics: Laboratory Tests 09/06/16 0600: Anion Gap 6, Estimated GFR > 60, BUN/Creatinine Ratio 21.3, CBC w Diff NO MAN DIFF REQ, RBC 3.33 L, MCV 94.6, MCH 31.6 H, RDW 14.6 H, MPV 9.2, Gran % 75.9 H, Lymphocytes % 13.0 L, Monocytes % 8.1, Eosinophils % 2.7, Basophils % 0.3, Absolute Granulocytes 8.4 H, Absolute Lymphocytes 1.4, Absolute Monocytes 0.9 H, Absolute Eosinophils 0.3, Absolute Basophils 0, PUBS MCHC 33.4 Assessment/Plan Assessment: This is an 86-year-old female with past medical history of atrial fibrillation ( recently started on Pradaxa), right brachial artery embolus, hypothyroidism and coronary artery disease who presented to the emergency department with worsening abdominal pain. Elevation in enzymes (amylase and lipase) and imaging studies likely suggest pancreatitis as a source of her pain. #Abdominal pain Patient does not seem to have any clear causes of what may predispose her to pancreatitis. She denies heavy alcohol use. Denies any new medications that may be contribute to pancreatitis and denies any history of gallstones in the past. Calcium level is slightly increased, however not a likely cause. We can check triglycerides, triglycerides WNL Abdominal Ultrasound showed Normal Gall bladder, no cholelithiasis. Aggressive IV hydration. Repeat BEP in a.m. Morphine for severe pain. Symptoms not resolving in a.m. consider GI consult. Trend lactic acid to ensure hypoperfusion does not occur. If lactic acid continues to increase consider CT of abdomen to rule out ischemia. Zofran when necessary for nausea. #Incidental finding of left hydronephrosis. Patient did complain of left-sided CVA tenderness. Imaging study did not show any evidence of visible obstructing ureteral stones. Monitor patient overnight if continues to experience pain in left flank consider repeat imaging. Urology consult obtained Patient can be followed up as an outpatient. #History of hypertension. Amlodipine 5 mg Current BP: 130/74. Goal 140/90 Hold Abdulaziz for now Continue calcium channel ashley. #History of atrial fibrillation Continue Pradaxa Consider cardiology consult in a.m. if patient's cardiac function deteriorates or patient complains of chest pain. History of hypothyroidism Continue Synthroid Check TSH free T4. #Diet Diet Advanced to Clears.--> advanced to Full liquids. Likely can be advanced this evening if patient is stable and tolerating feeds well. Literature suggest that By mouth intake as soon as the patient feels ready to begin po intake improves prognosis. #Dvt Prophylaxis: Pradaxa #code DNR/DNI Problem List: 1. Hydronephrosis 2. Pancreatitis Pain Ratin Pain Location: No Pain reported Pain Goal: Remain pain free Pain Plan: Tylenol PRN Tomorrow's Labs & Rationales: NONE
[2016-09-06 08:03] LABS: ABSOLUTE BASOPHIL COUNT 0 /CUMM (0.0-0.2); ABSOLUTE EOSINOPHIL COUNT 0.3 /CUMM (0.0-0.7); ABSOLUTE GRANULOCYTE CT 8.4 /CUMM (1.4-6.5); ABSOLUTE LYMPH COUNT 1.4 /CUMM (1.2-3.4); ABSOLUTE MONOCYTE COUNT 0.9 /CUMM (0.10-0.60); BASOPHIL % 0.3 % (0.0-2.0); EOSINOPHIL % 2.7 % (0-5); GRANULOCYTE % 75.9 % (42.2-75.2); HEMATOCRIT 31.5 % (37-47); MEAN CORPUSCULAR HGB 31.6 PG (27.0-31.0); MEAN CORPUSCULAR HGB CONC 33.4 G/DL (33.0-37.0); MEAN CORPUSCULAR VOLUME 94.6 FL (81.0-99.0); MEAN PLATELET VOLUME 9.2 FL (7.4-10.4); PLATELET COUNT 150 /CUMM (130-400); RBC DISTRIBUTION WIDTH 14.6 % (11.5-14.5); RED BLOOD CELL CT 3.33 /CUMM (4.20-5.40); WHITE BLOOD CELL COUNT 11.1 /CUMM (4.8-10.8)
[2016-09-06] MEDS ORDERED: AMLODIPINE BESYL5 M1 PO (10:03)
[2016-09-06 14:54] VITALS: BP 110/60
[2016-09-06 23:51] VITALS: BP 146/84
--- NOTE | 2016-09-07 05:45 | PN- Housestaff ---
GABE CABRALES,[facility] 09/07/16 0544: Subjective Follow-up For: Pancreatitis Subjective: Ms Veloz was seen and examined this morning. She reports no issues overnight. She has been tolerating the advances in her diet well. She is currently pain free. She also reports that her diarrhea has resolved. She denies any fever, chills, Nausea or vomiting. Patient expresses that she would like to be discharged. Review of Systems Constitutional: Reports: see HPI. Objective Last 24 Hrs of Vital Signs/I&O Vital Signs Date Time Temp Pulse Resp B/P Pulse O2 O2 Flow FiO2 Ox Delivery Rate 09/07 08 76 140/76 09/07 0820 76 140/76 09/07 0800 Room Air 09/07 0626 98.2 76 20 140/76 95 Room Air 09/07 0109 80 09/06 2351 98.1 119 20 146/84 96 Room Air 09/06 2225 80 146/84 / 1454 98.6 75 20 110/60 96 / 1006 61 130/74 Intake & Output 09/07 1600 09/07 0800 09/07 0000 Intake Total 130 250 Output Total Balance 130 250 Intake, IV 10 10 Intake, Oral 120 240 Physical Exam General Appearance: Alert, Oriented X3, Cooperative Cardiovascular: Regular Rate, Normal S1, Normal S2 Lungs: Clear to Auscultation Abdomen: Normal Bowel Sounds, Soft, No Tenderness Neurological: Normal Speech Extremities: No Clubbing, No Cyanosis, No Edema Current Medications: Current Medications Sig/James Start time Last Medication Dose Route Stop Time Status Admin Acetaminophen 650 MG Q6 PRN 09/04 1530 AC PO Amlodipine Besylate 5 MG DAILY 09/05 1000 AC 09/07 PO 0820 Atorvastatin Calcium 10 MG 1700 09/04 1700 AC 09/06 PO 1621 Dabigatran 150 MG BID 09/04 2200 AC 09/07 PO 0820 Levothyroxine Sodium 0.1 MG DAILY AC 09/04 1545 AC 09/07 PO 0628 Metoprolol Tartrate 100 MG BID 09/04 2200 AC 09/07 PO 0820 Morphine Sulfate 2 MG Q6PRN PRN 09/04 1530 DC IV Ondansetron HCl 4 MG Q6P PRN 09/04 1600 AC IV Oxycodone HCl 5 MG Q6 PRN 09/04 1530 AC PO Assessment/Plan Assessment: This is an 86-year-old female with past medical history of atrial fibrillation ( recently started on Pradaxa), right brachial artery embolus, hypothyroidism and coronary artery disease who presented to the emergency department with worsening abdominal pain. Elevation in enzymes (amylase and lipase) and imaging studies likely suggest pancreatitis as a source of her pain. #Abdominal pain Patient does not seem to have any clear causes of what may predispose her to pancreatitis. She denies heavy alcohol use. Denies any new medications that may be contribute to pancreatitis and denies any history of gallstones in the past. Calcium level is slightly increased, however not a likely cause. We can check triglycerides, triglycerides WNL Abdominal Ultrasound showed Normal Gall bladder, no cholelithiasis. Trend lactic acid to ensure hypoperfusion does not occur. If lactic acid continues to increase consider CT of abdomen to rule out ischemia. Zofran when necessary for nausea. Patient stable to be discharged. #Incidental finding of left hydronephrosis. Patient did complain of left-sided CVA tenderness. Imaging study did not show any evidence of visible obstructing ureteral stones. Monitor patient overnight if continues to experience pain in left flank consider repeat imaging. Urology consult obtained Patient can be followed up as an outpatient. #History of hypertension. Amlodipine 5 mg Current BP: 130/74. Goal 140/90--> 140/76. We'll continue the patient on him limping 5 mg. Consulted with the primary care physician of the patient and informed him that for now will hold Abdulaziz. Patient may be considered for an R been the future. We'll leave this decision up to the primary care physician. Hold Abdulaziz for now Continue calcium channel ashley. #History of atrial fibrillation Continue Pradaxa Consider cardiology consult in a.m. if patient's cardiac function deteriorates or patient complains of chest pain. History of hypothyroidism Continue Synthroid Check TSH free T4. #Diet Diet Advanced to Clears.--> advanced to Full liquids. Likely can be advanced this evening if patient is stable and tolerating feeds well. Patient has tolerated diet well and is subsequently referred to be discharged home. Literature suggest that By mouth intake as soon as the patient feels ready to begin po intake improves prognosis. #Dvt Prophylaxis: Pradaxa #code DNR/DNI Problem List: 1. Pancreatitis 2. Hydronephrosis Pain Ratin Pain Location: No Pain Pain Goal: Remain pain free Pain Plan: Tylenol PRN Tomorrow's Labs & Rationales: LUIS KEYES MDSAW 09/07/16 1126: Attending MD Review Statement Attending Statement Attending MD Statement: examined this patient, discuss w/resident/PA/CHAR CONVEYOR TENDER, agreed w/resident/PA/CHAR CONVEYOR TENDER, reviewed EMR data (avail), discussed with nursing, discussed with case mgmt, amended to note Attending Assessment/Plan: Patient seen and examined, feeling much better overall. Abdominal pain has improved. Patient's diet was advanced yesterday. She has been tolerating well. She is medically stable for discharge today. She will follow with her primary care doctor as well as Dr. Maldonado from urology. It was communicated to her primary care doctor that we are stopping her lisinopril and increasing the dose of amlodipine as well as lisinopril could be one of the medications leading to acute pancreatitis.
--- NOTE | 2016-09-07 05:45 | Discharge Summary ---
Visit Information Visit Dates Admission Date: 09/04/16 Discharge Date: 09/07/16 Hospital Course Course Attending Physician: SAW KEYES MD Primary Care Physician: CITLALI CABRALES,[facility] Course: Ms Veloz is an 86-year-old female with past medical history of atrial fibrillation (recently started on Pradaxa), right brachial artery embolus, hypothyroidism and coronary artery disease who presented to the emergency department with worsening abdominal pain. She was admitted on the general medicine service and below is a summary of the care she received. #Idiopathic Pancreatitis Patient did not endose any predisposing factors which may have contributed to pancreatitis. She denies heavy alcohol use. Denies any new medications that may be contribute to pancreatitis and denies any history of gallstones in the past. Triglycerides were not elevated. An ultrasound was performed to rule out cholelithiasis. She was initially kept NPO and hydrated with Lactate ringers. Her pain was also adequately managed for with opioid medications. On day two of admission, we began the patient on a clear liquid diet. She tolerated this well and was advanced to full liquids and subsequently a low fat diet. She denied any complications and was discharged on day four of admission. #Incidental finding of left hydronephrosis. CT of the Abdomnen and Pelvis did show Left Kidney hydroureteronephrosis. We obtained a urology consult, who recommended that no surgical intervention was needed at this time. It was recommended that the patint would need a follow up renal ultrasound in one to two weeks. #History of hypertension. At time of admission patient's blood pressure was on a 171/74. Her Abdulaziz Inhibitor was held and her Amlodipine dose was increased to 5mg. Her blood pressures were well controlled throughout her admission. Upon discharge, we recommended that she hold the Abdulaziz inhibitor and continue with Amlodipine. She was discharged with instructions to follow up with her PCP for the correct anti- hypertensive regimen. #History of atrial fibrillation The patient was continued on Pradaxa Allergies: Coded Allergies: No Known Drug Allergies (06/29/16) Pertinent Lab Results: SERVICE DATE: 09/04/16-1700 EXAM TYPE: US - US-LIMITED ABDOMEN; US-RENAL/KIDNEY IMPRESSION: Abdomen: 1. Normal gallbladder. No cholelithiasis. 2. Mild fullness of the pancreas is may correspond to known pancreatitis. Kidneys: 1. Moderate left-sided hydronephrosis. 2. No nephrolithiasis. Sonographic evaluation of the kidneys is somewhat limited due to body habitus. 3. Multiple bilateral simple appearing renal cysts DICTATED BY: KARYN DOTSON MD SERVICE DATE: 09/04/16 EXAM TYPE: CAT - CT ABD & PELVIS W IV CONTRAST IMPRESSION: 1. Mild peripancreatic inflammatory changes and minimal free fluid surrounding the distal pancreatic tail and body and tracking contiguously into the left upper quadrant of the abdomen. Primary diagnostic consideration is for an acute pancreatitis. Correlate with pancreatic enzyme levels. 2. Mild to moderate hydroureteronephrosis of the left kidney and left renal collecting system to the level of the distal left ureter, approximately 1 cm from the left ureterovesicular junction. No visible obstructing left-sided ureteral stone. No appreciable nephrolithiasis of either kidney. Consider urological consultation for further clinical management and workup. 3. Multiple bilateral simple renal cortical cysts and parapelvic cysts. 4. Pancolonic diverticulosis, without secondary signs of acute diverticulitis. DICTATED BY: RAMILA CABRALES,VALERIO Disposition Summary Disposition Principal Diagnosis: Idiopathic Pancreatitis Additional Diagnosis: Left Hydronephrosis Hypertension Discharge Disposition: home or self care Discharge Instructions General Discharge Information Code Status: Do Not Resucitate/Intubat Patient's Diet: Low Fat Patient's Activity: As Tolerated Follow-Up Instructions/Appts: 1) Please follow up with Dr Godwin in one week. Please inform your PCP about the medication changes we have made. He may change these again. 2) Please follow up with the urologist in one week. You might need a repeat renal US in 1-2 weeks. We have provided you with a referral. Medications at Discharge Discharge Medications: Stop taking the following medications: Amlodipine (Norvasc) 2.5 MG TABLET ORAL DAILY Lisinopril (Lisinopril) 20 MG TABLET ORAL DAILY Continue taking these medications: Simvastatin (Zocor*) 20 MG TABLET 1 Tablet ORAL DAILY Comments: NOT GIVEN IN THE HOSPITAL Levothyroxine Sodium (Synthroid) 100 MCG TABLET 1 Tablet ORAL DAILY BEFORE BREAKFAST Comments: Last Taken: 09/07/16 Time: 6am Dabigatran Etexilate Mesylate (Pradaxa 150 MG) 150 MG CAPSULE 1 Capsule ORAL TWICE DAILY Qty = 60 Comments: Last Taken: 09/07/16 Time: 8 am Metoprolol Tartrate (Lopressor) 100 MG TABLET 1 Tablet ORAL TWICE DAILY Comments: Last Taken: 09/07/16 Time: 8 AM Start taking the following new medications: Amlodipine Besylate (Amlodipine Besylate) 5 MG TABLET 5 Milligram ORAL DAILY Qty = 30 No Refills Comments: Last Taken: 09/07/16 Time: 8AM Copies To: LAINE WILLIS MD; JAMSHID GODWIN MD
[2016-09-07 06:26] VITALS: BP 140/76
[2016-09-07 08:20] VITALS: BP 140/76
== END 2016-09-07 11:04 | DRG 439 ==
LOC: ENRESERVDT → ENRESERVTM → ERH 11:51 → 2NA 14:56 → ERHI 14:56 → ENPENDDIS 14:56 → 2NA 19:13
PROVIDERS: Internal Medicine Infectious Disease; Physician Assistant Medical; Student in an Organized Health Care Education/Training Program; ADMIT Internal Medicine
DX: K85.00 Idiopathic acute pancreatitis without necrosis or infection (principal); N13.30 Unspecified hydronephrosis; E86.0 Dehydration; I48.91 Unspecified atrial fibrillation; I10 Essential (primary) hypertension; E78.5 Hyperlipidemia, unspecified; E03.9 Hypothyroidism, unspecified; I25.10 Atherosclerotic heart disease of native coronary artery without angina pectoris; Z79.01 Long term (current) use of anticoagulants
CPT/HCPCS: 2NASP; 36415; 74177; 76775; 81001; 82436; 87086; 93005; 93010; 96374; 97116-GO; 97161-GP; J7120

== ENCOUNTER 2016-12-23 18:43 | Emergency (ER) | payer OTHER, MEDICARE ==
[~2016-12-23 18:43] MED LIST changes: +AMLODIPINE BESYL5 M1 PO; +LOPRESSOR100 M1 PO
[2016-12-23 18:50] VITALS: BP 134/67
[2016-12-23] MEDS ORDERED: TOPROL XL25 M2 PO (19:12)
[2016-12-23] MEDS ORDERED: SYNTHROID75 MCG PO (19:12)
[2016-12-23] MEDS ORDERED: GLUCOSAMINE1000 MG PO (19:13)
[2016-12-23] MEDS ORDERED: ACETAMINOPHEN500 M4 PO (19:13)
[2016-12-23] MEDS ORDERED: VITAMIN D1000 UNIT PO (19:13)
--- NOTE | 2016-12-23 19:16 | ED NOSE COMPLAINT ---
History of Present Illness General Chief Complaint: Epistaxis/Nasal Foreign Body Stated Complaint: NOSE BLEED Source: patient Exam Limitations: no limitations Vital Signs & Intake/Output Vital Signs & Intake/Output Vital Signs Date Time Temp Pulse Resp B/P B/P Pulse O2 O2 Flow FiO2 Mean Ox Delivery Rate 12/23 1850 98.4 80 16 134/67 98 Room Air Allergies Coded Allergies: No Known Drug Allergies (06/29/16) Reconcile Medications Acetaminophen 500 MG TABLET 1 TAB PO QPM PAIN (Reported) Amlodipine Besylate 5 MG TABLET 5 MG PO DAILY HYPERTENSION Cholecalciferol (Vitamin D3) (Vitamin D) 1,000 UNIT TABLET 1 TAB PO DAILY SUPPLEMENT (Reported) Dabigatran Etexilate Mesylate (Pradaxa 150 MG) 150 MG CAPSULE 1 CAP PO BID blood thinner Glucosamine Sulfate 2KCL (Glucosamine) (Unknown Strength) TABLET (Unknown Dose ) PO DAILY SUPPLEMENT (Reported) Levothyroxine Sodium (Synthroid) 75 MCG TABLET 1 TAB PO DAILY THYROID ( Reported) Metoprolol Succ XL (Toprol XL) 25 MG TAB.ER.24H 1 TAB PO DAILY HEART/BP ( Reported) Simvastatin (Zocor*) 20 MG TABLET 1 TAB PO DAILY CHOLESTEROL (Reported) Triage Note: TRIAGE: C/O right NARES BLEEDING SINCE LAST NIGHT. ARRIVES WITH COTTON TO NOSTRIL WHICH DOES NOT APPEAR SATURATED. ON PRADAXA FOR HX BLOOD CLOTS. DENIES DIZZINESS. HEMODYNAMICALLY STABLE IN TRIAGE. DENIES CP/SOB Triage Nurses Notes Reviewed? yes Onset: Gradual Duration: waxing and waning (2 days) Timing: remote history Injury Environment: home Severity: mild Severity Numbers: 3 Modifying Factors: Improves With: other (pressure). HPI: Patient is an 86-year-old female with remote history of epistaxis presenting to the emergency department with chief complaint of intermittent nosebleeds over the past 2-3 days. She reports that it's been out of the right nostril. Denies any trauma. She reports that it's been dripping on and off and she is able to control the bleeding with pressure but that she should come in for evaluation. She does take Prodaxa.. History of A. fib, hyperthyroidism. Denies any lightheadedness, no confusion, no headaches. Denies any visual changes. No chest pain palpitations or shortness of breath. (MARIEL BURDICK) Past History Travel History Traveled to [place] past 21 day No Medical History Any Pertinent Medical History? 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 No (MARIEL BURDICK) Review of Systems Review of Systems Constitutional: Reports: no symptoms. Comments Review of systems: See HPI, All other systems negative. Constitutional, no chills fever or weight loss HEENT: No visual changes no sore throat no congestion Cardiovascular: No chest pain ,palpitation , orthopnea or ankle swelling Skin, no jaundice no rashes Respiratory: No dyspnea cough sputum or hemoptysis GI: No nausea no vomiting : No dysuria No hematuria Muscle skeletal: no back pain, no neck pain, Neurologic: No numbness no confusion Psych: No stress anxiety or depression,. Heme/endocrine: on pradaxa Immunology: No splenectomy or history of AIDS (MARIEL BURDICK) Physical Exam Physical Exam General Appearance: well developed/nourished, no apparent distress, alert, awake , comfortable Nose: dried blood in right nare Comments: Well-developed well-nourished person in no acute distress HEENT: Pupils equally round and reactive to light and accommodation. No pallor noted to palpable conjunctiva. Nose is atraumatic. Dried blood in the right near. No active bleeding. Able to appreciate small abrasion in the right naris. External auditory canal and Tympanic membranes clear. Pharynx normal. No swelling or edema. Neck: Supple, no lymphadenopathy, normal range of motion without pain or tenderness Back: Nontender Cardiovascular: irRegular rate and rhythms no murmurs rubs or gallops, normal JVP Respiratory: Chest nontender. No respiratory distress.breath sounds clear to auscultation bilaterally Neuro: Alert oriented x3, motor sensory normal, cranial nerves II through XII grossly intact. Skin: No appreciable rash on exposed skin, skin is warm and dry. Psych: Mood and affect is normal, memory and judgment is normal. (MARIEL BURDICK) Progress Differential Diagnoses I considered the following diagnoses in my evaluation of the patient: Recurrent epistaxis, anemia, abrasion Plan of Care: Current Medications Sig/James Start time Last Medication Dose Stop Time Status Admin Oxymetazoline HCl 2 SPRAY ONCE ONE 12/23 1914 UNVr (Afrin) 12/24 1915 Initial ED EKG: none (MARIEL BURDICK) Departure Departure Time of Disposition: 1913 Disposition: HOME OR SELF CARE Condition: Stable Clinical Impression Primary Impression: Epistaxis Referrals: ANN MARIE CABRALES,JASS GODWIN MD,JAMSHID (PCP/Family) Additional Instructions: Follow-up with ear nose and throat doctor call Sunday to make an appointment. Use Afrin spray in each nostril once a day. Stop using the Afrin spray after Sunday. Denies taking anything in your nose. You can apply a small amount of Vaseline to the outer portion of your nares to help with moisture. Return for worsening symptoms, I few are unable to control bleeding after 10-15 minutes of pressure or concerns. Departure Forms: Customer Survey General Discharge Information (MARIEL BURDICK) PA/FLUME WORKER Co-Sign Statement Statement: ED Attending supervision documentation- [] I saw and evaluated the patient. I have also reviewed all the pertinent lab results and diagnostic results. I agree with the findings and the plan of care as documented in the PA's/FLUME WORKER's documentation. [X] I have reviewed the ED Record and agree with the PA's/FLUME WORKER's documentation. [] Additions or exceptions (if any) to the PAs/FLUME WORKER's note and plan are summarized below: [] (JALEN CABRALES,MARCI Grider)
== END 2016-12-23 19:28 ==
LOC: ERH 18:43
DX: R04.0 Epistaxis (principal)

== ENCOUNTER 2017-09-08 09:12 | Inpatient (IN) | payer OTHER, MEDICARE ==
[~2017-09-08] VITALS: Ht 177.8 cm; Wt 72.3 kg
[~2017-09-08 09:12] MED LIST changes: +ACETAMINOPHEN500 M4 PO; +CYCLOBENZAPRINE5 M2 PO; +DICLOFENAC POTA50 M1 PO; +GLUCOSAMINE1000 MG PO; +SYNTHROID75 MCG PO; +TOPROL XL25 M2 PO; +VITAMIN D1000 UNIT PO
--- NOTE | 2017-09-08 10:19 | ED UPPER/LOWER EXTREMITY COMPL ---
History of Present Illness General Chief Complaint: Upper Extremity Problem Stated Complaint: C/O R ARM NUMBNESS Source: patient, family Exam Limitations: no limitations Vital Signs & Intake/Output Vital Signs & Intake/Output Vital Signs Date Time Temp Pulse Resp B/P B/P Pulse O2 O2 Flow FiO2 Mean Ox Delivery Rate 09/08 1233 98.6 88 18 164/78 94 Room Air 09/08 0914 98.6 74 16 95 Room Air Allergies Coded Allergies: No Known Drug Allergies (06/29/16) Reconcile Medications Acetaminophen 500 MG TABLET 1 TAB PO QAM PAIN (Reported) Amlodipine (Norvasc) 2.5 MG TABLET 1 TAB PO DAILY BP (Reported) Cholecalciferol (Vitamin D3) (Vitamin D) 1,000 UNIT TABLET 1 TAB PO DAILY SUPPLEMENT (Reported) Cyclobenzaprine HCl 5 MG TABLET 1 TAB PO Q6 PRN BACK PAIN/SPASMS Dabigatran Etexilate Mesylate (Pradaxa 150 MG) 150 MG CAPSULE 1 CAP PO BID blood thinner Diclofenac Potassium 50 MG TABLET 1 TAB PO TID PRN PAIN Glucosamine Sulfate 2KCL (Glucosamine) (Unknown Strength) TABLET (Unknown Dose ) PO DAILY SUPPLEMENT (Reported) Levothyroxine Sodium (Synthroid) 75 MCG TABLET 1 TAB PO DAILY THYROID ( Reported) Metoprolol Succ XL (Toprol XL) 25 MG TAB.ER.24H 1 TAB PO DAILY HEART/BP ( Reported) Simvastatin (Zocor*) 20 MG TABLET 1 TAB PO DAILY CHOLESTEROL (Reported) Triage Note: 87 Y/O FEMALE C/O WAKING TODAY WITH FEELING OF "PRICKLING" IN R ARM DOWN TO FINGERTIPS. FINGERTIPS OF RIGHT HAND NOTED TO BE WHITE IN COLOR, COLD TO TOUCH. PT ALSO C/O "PAIN" IN R ARM AND "ONLY HALF OF MY VISION" OUT OF LEFT EYE - SYMPTOMS AGAIN NOTICED WITH WAKING THIS MORNING. NO FACIAL DROOP NOTED. NO ARM DRIFT APPRECIATED. PT DENIES C/P. DENIES SOB. DENIES N/V/D. TAKEN TO ROOM 7 FROM TRIAGE. Triage Nurses Notes Reviewed? yes Onset: Abrupt Duration: hour(s):, constant Timing: single episode today No Modifying Factors: none HPI: 87-year-old female comes into emergency room with complaints of her right arm feeling heavy and difficulty moving it. Patient denies any falls or trauma. She reports that her arm feels tingly. She denies any chest pain shortness of breath lightheaded dizziness. She reports that she's had some intermittent blurry vision in the left eye. She denies any vomiting. Denies any headache. She is on PRADAXA for Dr. edis suazo (Cliff Philip) Past History Travel History Traveled to [place] past 21 day No Medical History Any Pertinent Medical History? 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 No (Cliff Philip) Review of Systems Review of Systems Constitutional: Reports: no symptoms. EENTM: Reports: no symptoms. Respiratory: Reports: no symptoms. Cardiovascular: Reports: no symptoms. Gastrointestinal/Abdominal: Reports: no symptoms. Genitourinary: Reports: no symptoms. Musculoskeletal: Reports: see HPI. Skin: Reports: no symptoms. Neurological/Psychological: Reports: no symptoms. Hematologic/Endocrine: Reports: no symptoms. Immunological: Reports: no symptoms. All Other Systems: Reviewed and Negative (Cliff Philip) Physical Exam Physical Exam General Appearance: well developed/nourished, mild distress Head: atraumatic Eyes: Bilateral: normal appearance. Ears, Nose, Throat: normal ENT inspection, hearing grossly normal Neck: normal inspection Cardiovascular/Respiratory: no respiratory distress Back: normal inspection Elbow Right: no palpable radial pulse, no palpable brachial pulse, Fingers white , no capillary Refill, sensation diminished, Limited range of motion of right arm, Skin: intact, normal color, warm/dry Lymphatic: no anterior cervical kasi (Cliff Philip) Progress Differential Diagnosis: arterial insufficiency, cellulitis, contusion, dislocation, DVT Plan of Care: Orders Procedure Date/time Status LACTIC ACID 09/08 1244 Active CTA CHEST 09/[address] UPPER EXT ANGIOGRAM 09/08 1000 Active TROPONIN LEVEL 09/08 0944 Complete PARTIAL THROMBOPLASTIN TIME 09/09 943 Complete PROTHROMBIN TIME 09/09 943 Complete LACTIC ACID 09/09 943 Complete COMPREHENSIVE METABOLIC PANEL 09/09 943 Complete CBC WITHOUT DIFFERENTIAL 09/09 943 Complete EKG 09/09 943 Active TYPE & SCREEN (NOT X-MATCH) 09/09 943 Complete Current Medications Sig/James Start time Last Medication Dose Stop Time Status Admin Heparin Sodium 25,000 UNIT Q24H 09/08 1015 UNVr 09/08 (Porcine) 1105 (Heparin) Sodium Chloride 500 ML Laboratory Tests 09/08/17 1006: Anion Gap 10, Estimated GFR 59 L, BUN/Creatinine Ratio 22.2, Glucose 103 H, Lactic Acid 1.4, Calcium 10.3 H, Total Bilirubin 0.7, AST 29, ALT 23, Alkaline Phosphatase 143 H, Troponin I < 0.01, Total Protein 6.6, Albumin 3.6, Globulin 3.0, Albumin/Globulin Ratio 1.2, PT 11.9, INR 1.09, APTT 37, CBC w Diff NO MAN DIFF REQ, RBC 4.73, MCV 94.4, MCH 30.3, MCHC 32.1 L, RDW 14.9 H, MPV 8.3, Gran % 57.8, Lymphocytes % 27.0, Monocytes % 7.1, Eosinophils % 7.4 H, Basophils % 0.7, Absolute Granulocytes 3.5, Absolute Lymphocytes 1.6, Absolute Monocytes 0.4 , Absolute Eosinophils 0.4, Absolute Basophils 0 Diagnostic Imaging: Viewed by Me: CT Scan. Discussed w/RAD: CT Scan. Radiology Impression: PATIENT: HEIDE CERON PRESENT AGE: 87 PATIENT ACCOUNT NO: [id number] : 29 LOCATION: [facility] ORDERING PHYSICIAN: Cliff CHADWICK SERVICE DATE: 09/08/17 EXAM TYPE : CAT - CT NECK ANGIOGRAM EXAMINATION: CT NECK ANGIOGRAM CLINICAL INFORMATION: Right upper extremity weakness. Evaluate for cerebrovascular accident. COMPARISON: CT scan of the head 09/08/2012. TECHNIQUE: Sweatband Decorating Machine Operator images were obtained. A CT angiogram of the neck was performed in the arterial phase after the intravenous administration of 120 mL Optiray 350. MIP reconstructions were generated in multiple orientations at the acquisition workstation. Multiple three-dimensional surface rendered images and maximum intensity projection images were generated on a dedicated 3-D lab workstation. Arterial stenoses are measured in accordance with NASCET criteria or similar method if applicable. Total exam dose-length product 1426.27 mGy-cm (including chest abdomen and pelvis) FINDINGS: A few scattered atheromatous calcification visualized at the aortic arch apex. Origins of major aortic branches are widely patent. There is a filling defect within the right subclavian artery best illustrated on axial image 342 of 460 series 8 that measures 2.7 cm in length. The left subclavian artery and the common carotid arteries are patent. Heavily calcified atheromatous plaque involves both carotid bifurcations. There is 50% stenosis of the right internal carotid artery at its origin. 10% stenosis of the left internal carotid artery at its origin. There is high-grade stenosis or occlusion at the junction of the V1 and V2 segments of left vertebral artery. There is focal high-grade narrowing at the origin of the dominant right vertebral artery best illustrated on axial image 349. The intradural vertebral artery segments and basilar artery are patent. Heavily calcified plaque involves the cavernous segments of both internal carotid arteries. Intracranial internal carotid arteries are grossly patent. 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 Heavily calcified atheromatous plaque involves both carotid bifurcations. There is 50% stenosis at the origin of the right internal carotid artery at 10% stenosis at the origin of the left internal carotid artery. There is high-grade stenosis or occlusion at the junction of the V1 and V2 segments of the left vertebral artery and focal high-grade narrowing at the origin of the dominant right vertebral artery. DICTATED BY: Emmett Maria MD DATE/TIME DICTATED:09/08/171215 TOOL TECHNICIAN:JAVIER DATE/ TIME TRANSCRIBED:09/08/171215 CONFIDENTIAL, DO NOT COPY WITHOUT APPROPRIATE AUTHORIZATION. <Electronically signed in Other Vendor System> SIGNED BY: Emmett Maria MD 09/08/17 1228, PATIENT: HEIDE CERON PRESENT AGE: 87 PATIENT ACCOUNT NO: [id number] : 29 LOCATION: [facility] ORDERING PHYSICIAN: Cliff CHADWICK SERVICE DATE: 09/08/17 EXAM TYPE: CAT - CT HEAD WO IV CONTRAST EXAMINATION: CT HEAD WITHOUT CONTRAST CLINICAL INFORMATION: Blurry vision. Right arm weakness. Rule out CVA. COMPARISON: CT scan of the head dated 07/02/2016 and 07/01/2016 and 06/30/2016. TECHNIQUE: Contiguous axial imaging was performed from the skull base to vertex without intravenous administration of contrast. DLP: 544.90 mGy-cm FINDINGS: There is no evidence of acute intracranial hemorrhage or territorial infarction. The previously seen parafalcine subdural hematoma has resolved. No abnormal mass effect or midline shift is seen. Venegas to white matter differentiation is well preserved. No extra-axial fluid collections are identified. The ventricles and sulci are mildly enlarged, consistent with involutional changes. There is mild periventricular deep white matter low-attenuation seen, consistent with ischemic small vessel disease. The osseous structures and soft tissues are normal. There is mucosal thickening in the left maxillary sinus. The mastoid air cells and remainder of the visualized portions of the paranasal sinuses are well aerated. IMPRESSION: 1. No acute intracranial pathology. 2. Mild involutional changes and findings of ischemic small vessel disease again noted. DICTATED BY: Lindsay Norton MD DATE/TIME DICTATED:09/08/171210 TOOL TECHNICIAN:JAVIER DATE/ TIME TRANSCRIBED:09/08/171210 CONFIDENTIAL, DO NOT COPY WITHOUT APPROPRIATE AUTHORIZATION. <Electronically signed in Other Vendor System> SIGNED BY: Lindsay Norton MD 09/08/17 1222 (Cliff Philip) Departure Departure Disposition: STILL A PATIENT Condition: Stable Clinical Impression Primary Impression: Arterial occlusion Referrals: Mikey Evans MD (PCP/Family) Departure Forms: Customer Survey General Discharge Information Comments 09/08/2017 1:04:11 PM Patient was seen initially upon arrival and vascular surgeon was paged immediately. Vascular surgeon was here in the emergency room with in an hour of speaking with him. He evaluated the patient. CT angiogram is pending blood patient will be brought to the operating room. OR/GI Note Spoke With: Luis Carlos CABRALES,Misael ED Treatment Decision: HEIDE CERON requires urgent operative management or an emergent procedure that cannot be performed in the Emergency Room setting. Transport To: [facility] (Cliff Philip) PA/LOAN OPERATIONS SPECIALIST Co-Sign Statement Statement: ED Attending supervision documentation- [X] I saw and evaluated the patient. I have also reviewed all the pertinent lab results and diagnostic results. I agree with the findings and the plan of care as documented in the PA's/LOAN OPERATIONS SPECIALIST's documentation. [X] I have reviewed the ED Record and agree with the PA's/LOAN OPERATIONS SPECIALIST's documentation. [] Additions or exceptions (if any) to the PAs/LOAN OPERATIONS SPECIALIST's note and plan are summarized below: [Patient presented with tingling to her right upper extremity. Unable to palpate a radial pulse or brachial pulse. Vascular surgery at the bedside and she is going to the operating room.] (Daisy CABRALES,Poncho Grider) Critical Care Note Critical Care Note Critical Care Time: 30-74 min (60) (Denys CHADWICK,Cliff)
[2017-09-08 10:22] LABS: ABSOLUTE BASOPHIL COUNT 0 /CUMM (0.0-0.2); ABSOLUTE EOSINOPHIL COUNT 0.4 /CUMM (0.0-0.7); ABSOLUTE GRANULOCYTE CT 3.5 /CUMM (1.4-6.5); ABSOLUTE LYMPH COUNT 1.6 /CUMM (1.2-3.4); ABSOLUTE MONOCYTE COUNT 0.4 /CUMM (0.10-0.60); BASOPHIL % 0.7 % (0.0-2.0); EOSINOPHIL % 7.4 % (0-5); GRANULOCYTE % 57.8 % (42.2-75.2); HEMATOCRIT 44.6 % (37-47); MEAN CORPUSCULAR HGB 30.3 PG (27.0-31.0); MEAN CORPUSCULAR HGB CONC 32.1 G/DL (33.0-37.0); MEAN CORPUSCULAR VOLUME 94.4 FL (81.0-99.0); MEAN PLATELET VOLUME 8.3 FL (7.4-10.4); PLATELET COUNT 267 /CUMM (130-400); RBC DISTRIBUTION WIDTH 14.9 % (11.5-14.5); RED BLOOD CELL CT 4.73 /CUMM (4.20-5.40)
[2017-09-08 10:26] LABS: PT 11.9 SEC (9.4-12.5); PTT 37 SEC (25-37)
--- NOTE | 2017-09-08 12:22 | CT SCAN REPORT ---
EXAMINATION: CT HEAD WITHOUT CONTRAST CLINICAL INFORMATION: Blurry vision. Right arm weakness. Rule out CVA. COMPARISON: CT scan of the head dated 07/02/2016 and 07/01/2016 and 06/30/2016. TECHNIQUE: Contiguous axial imaging was performed from the skull base to vertex without intravenous administration of contrast. DLP: 544.90 mGy-cm FINDINGS: There is no evidence of acute intracranial hemorrhage or territorial infarction. The previously seen parafalcine subdural hematoma has resolved. No abnormal mass effect or midline shift is seen. Venegas to white matter differentiation is well preserved. No extra-axial fluid collections are identified. The ventricles and sulci are mildly enlarged, consistent with involutional changes. There is mild periventricular deep white matter low-attenuation seen, consistent with ischemic small vessel disease. The osseous structures and soft tissues are normal. There is mucosal thickening in the left maxillary sinus. The mastoid air cells and remainder of the visualized portions of the paranasal sinuses are well aerated. IMPRESSION: 1. No acute intracranial pathology. 2. Mild involutional changes and findings of ischemic small vessel disease again noted.
[2017-09-08] MEDS ORDERED: NORVASC2.5 M1 PO (12:26)
--- NOTE | 2017-09-08 12:28 | CT SCAN REPORT ---
EXAMINATION: CT NECK ANGIOGRAM CLINICAL INFORMATION: Right upper extremity weakness. Evaluate for cerebrovascular accident. COMPARISON: CT scan of the head 09/08/2012. TECHNIQUE: Stand Up Comedian images were obtained. A CT angiogram of the neck was performed in the arterial phase after the intravenous administration of 120 mL Optiray 350. MIP reconstructions were generated in multiple orientations at the acquisition workstation. Multiple three-dimensional surface rendered images and maximum intensity projection images were generated on a dedicated 3-D lab workstation. Arterial stenoses are measured in accordance with NASCET criteria or similar method if applicable. Total exam dose-length product 1426.27 mGy-cm (including chest abdomen and pelvis) FINDINGS: A few scattered atheromatous calcification visualized at the aortic arch apex. Origins of major aortic branches are widely patent. There is a filling defect within the right subclavian artery best illustrated on axial image 342 of 460 series 8 that measures 2.7 cm in length. The left subclavian artery and the common carotid arteries are patent. Heavily calcified atheromatous plaque involves both carotid bifurcations. There is 50% stenosis of the right internal carotid artery at its origin. 10% stenosis of the left internal carotid artery at its origin. There is high-grade stenosis or occlusion at the junction of the V1 and V2 segments of left vertebral artery. There is focal high-grade narrowing at the origin of the dominant right vertebral artery best illustrated on axial image 349. The intradural vertebral artery segments and basilar artery are patent. Heavily calcified plaque involves the cavernous segments of both internal carotid arteries. Intracranial internal carotid arteries are grossly patent. 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 Heavily calcified atheromatous plaque involves both carotid bifurcations. There is 50% stenosis at the origin of the right internal carotid artery at 10% stenosis at the origin of the left internal carotid artery. There is high-grade stenosis or occlusion at the junction of the V1 and V2 segments of the left vertebral artery and focal high-grade narrowing at the origin of the dominant right vertebral artery.
--- NOTE | 2017-09-08 13:27 | History & Physical Pre-Op ---
General Information and HPI MD Statement: I have seen and personally examined HEIDE CERON and documented this H&P. The patient is a 87 year old F who presented with a patient stated chief complaint of left arm heaviness and numbness. Source of Information: patient, family, old records Exam Limitations: no limitations History of Present Illness: This is a pleasant 87-year-old female who awoke this morning and complained of heaviness in the right upper extremity along with numbness in the hand and fingers. She has a history significant for atrial fibrillation, and has been taking oral pradaxa for this. She presented previously in 2016 with a similar symptom, and underwent a brachial embolectomy. She was transitioned off of Coumadin at that time and put on the Pradaxa. Allergies/Medications Allergies: Coded Allergies: No Known Drug Allergies (06/29/16) Home Med list Acetaminophen 500 MG TABLET 1 TAB PO QAM PAIN (Reported) Amlodipine (Norvasc) 2.5 MG TABLET 1 TAB PO DAILY BP (Reported) Cholecalciferol (Vitamin D3) (Vitamin D) 1,000 UNIT TABLET 1 TAB PO DAILY SUPPLEMENT (Reported) Cyclobenzaprine HCl 5 MG TABLET 1 TAB PO Q6 PRN BACK PAIN/SPASMS Dabigatran Etexilate Mesylate (Pradaxa 150 MG) 150 MG CAPSULE 1 CAP PO BID blood thinner Diclofenac Potassium 50 MG TABLET 1 TAB PO TID PRN PAIN Glucosamine Sulfate 2KCL (Glucosamine) (Unknown Strength) TABLET (Unknown Dose ) PO DAILY SUPPLEMENT (Reported) Levothyroxine Sodium (Synthroid) 75 MCG TABLET 1 TAB PO DAILY THYROID ( Reported) Metoprolol Succ XL (Toprol XL) 25 MG TAB.ER.24H 1 TAB PO DAILY HEART/BP ( Reported) Simvastatin (Zocor*) 20 MG TABLET 1 TAB PO DAILY CHOLESTEROL (Reported) Compliance With Home Meds: GOOD Past History Medical History Neurological: NONE EENT: NONE Cardiovascular: AFIB, hypertension, hyperlipidemia Respiratory: NONE Gastrointestinal: NONE Hepatic: NONE Renal: NONE Musculoskeletal: NONE Psychiatric: NONE Endocrine: hypothyroidism Blood Disorders: NONE Cancer(s): NONE 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 child Services at Home None Primary Language: Turkmen Living Will? unknown Power of Senior Storage Engineer/HCP? unknown Name of POA/HCP: unknown Functional Ability ADLs Independent: dressing, eating, toileting, bathing. Ambulation: independent IADLs Independent: medication admin. Exam & Diagnostic Data Last 24 Hrs of Vital Signs/I&O Vital Signs Date Time Temp Pulse Resp B/P B/P Pulse O2 O2 Flow FiO2 Mean Ox Delivery Rate 09/08 1233 98.6 88 18 164/78 94 Room Air 09/08 0914 98.6 74 16 95 Room Air Intake & Output 09/08 1600 09/08 0800 09/08 0000 Intake Total Output Total Balance Patient 67.642 kg Weight Weight Standing Scale Measurement Method Physical Exam General Appearance Alert, Oriented X3, Cooperative, No Acute Distress Skin No Rashes (eyelid rash bilaterally) Neck Supple (soft and supple) Cardiovascular irregular heartbeat, nonpalpable right axillary, brachial, radial , or ulnar pulses. 1+ palpable bilateral dorsalis pedis pulses. 2+ palpable left radial pulse. Diagnostic Data Other Results I personally reviewed all of the images from her CT scan which demonstrated a large embolus in the proximal most right subclavian artery. The remainder of the aortic arch branches appear patent and free of disease. Assessment/Plan Assessment/Plan: Recommend immediate anticoagulation with intravenous heparin, CT angiogram of chest and neck reviewed, and plan for urgent embolectomy via a right axillary artery approach As Ranked By This Provider Problem List: 1. 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 Atrial fibrillation
--- NOTE | 2017-09-08 15:58 | CT SCAN REPORT ---
EXAMINATION: CT ANGIOGRAM CHEST, ABDOMEN AND PELVIS WITHOUT AND WITH CONTRAST INTERPRETING VASCULAR \T\ INTERVENTIONAL RADIOLOGIST: Emmett Hair MD CLINICAL INFORMATION: No palpable pulse right arm, fingers white/purple. TECHNIQUE: Multiple axial images were obtained through the chest, abdomen and pelvis using a 64-slice CT scan before and after administration of IV contrast. 120 mL of Optiray 350 was administered intravenously. Images were evaluated on independent dedicated 3-D workstation and 3-D images were reconstructed with concurrent radiologist supervision and subsequently interpreted. COMPARISON: CT chest, abdomen and pelvis 09/01/2017. DLP: 1426.27 mGy-cm. FINDINGS: VASCULAR: 1. Ascending thoracic aorta: The ascending thoracic aorta is normal in course and caliber without aneurysmal dilatation or dissection. 2. Thoracic aortic arch: There is a normal 3-vessel aortic arch. The great vessels are all patent at their origin. There is occlusive thrombus in the proximal right subclavian artery. The thrombus measures approximately 3 cm in length. There is some reconstitution of the subclavian with additional smaller thrombus in the axillary artery and no contrast opacification is seen beyond the level of the axillary artery. The origin of the right vertebral artery appears to have a small amount of clot within it although the right vertebral artery is patent, please refer to the CTA of the neck for further evaluation of the arteries in the neck. The left subclavian is patent. 3. Descending thoracic aorta: The descending thoracic aorta is diseased with calcified and noncalcified atherosclerotic plaque. 4. Mesenteric arteries: There is a mild stenosis at the proximal celiac artery. The distal branches are fairly well opacified. The splenic artery is heavily calcified, and appears to be severely stenotic/occluded (2, 923/1617). The SMA is moderate to severely stenotic at its origin. There is a short-segment near-complete occlusion of the SMA (2, 986/1617); however, there is fairly good opacification of the distal vessels. There is a fairly significant stenosis at the origin of the MALLORY; however, it does appear to be patent. 5. Renal arteries: There is a very tight stenosis at the origin of the left renal artery due to heavily calcified atherosclerotic plaque. There is asymmetric renal cortical atrophy of the left kidney compared to the right. There is a very tight short segment stenosis at the origin of the right renal artery. 6. Abdominal aorta: The infrarenal abdominal aorta is heavily diseased with calcified and noncalcified atherosclerotic plaque. There is focal ectasia in the infrarenal abdominal aorta which measures 3.2 x 2.7 cm (2, 1039/1617) with asymmetric mural plaque/thrombus anteriorly at this level. 7. Right iliofemoral system: Focal aneurysmal dilatation of the right common iliac artery measuring 1.9 cm. The external iliac artery is patent. There is a focal aneurysm in the right internal iliac artery which measures 1.5 cm. 8. Left iliofemoral system: The left common iliac artery is heavily diseased. There is focal aneurysmal dilatation of the left common iliac artery at the level of the bifurcation measuring 1.6 cm. The left hypogastric artery is occluded. The external iliac artery is patent. The superficial femoral artery appears to be occluded proximally. NONVASCULAR: CHEST: Lungs: There is biapical pleural parenchymal scarring. Chronic-appearing subpleural markings in the anterolateral left upper lobe are unchanged. There is scarring/atelectasis in the bilateral lower lung bases. There is scarring/atelectasis along the right middle lobe and right lower lobe adjacent to the fissure in the right lung base. No dense consolidation. Scattered punctate nodular opacities are seen throughout both lungs, not changed from prior. Mediastinum: The heart size is upper limits of normal. There are coronary artery calcifications. No clear embolic source is visualized within the left heart. There is low-attenuation within the left atrial appendage which may be due to mixing artifact. No mediastinal lymphadenopathy. Pericardium/Pleura: There is no significant effusion. No pleural mass or thickening. Chest Wall/Axilla: Unremarkable. ABDOMEN/PELVIS: Liver, Gallbladder, Biliary Tree: The liver is normal in size, shape, and attenuation. No focal hepatic lesion or biliary ductal dilatation is present. The gallbladder is unremarkable with no evidence of radiopaque gallstones, gallbladder wall thickening, or pericholecystic inflammatory changes. Pancreas: 1.2 x 0.7 cm low-attenuation lesions in the body/tail of the pancreas are nonspecific, these could represent small cystic lesions versus invagination of peripancreatic fat (4, 118/203). Spleen: Unremarkable. Adrenal Glands: Unremarkable. Kidneys and Ureters: Renal cortical thinning in the [id number]-kvhi-right kidneys. The kidneys do enhance symmetrically. There are bilateral renal cysts. Prominent right extrarenal pelvis, there is no hydronephrosis. No clear renal calculi. Bladder: Unremarkable. Gastrointestinal Tract: No evidence of bowel obstruction. There is colonic diverticulosis. Abdominal Wall: No hernia is demonstrated. Lymph Nodes: Normal. Pelvic Viscera: The uterus and adnexa are unremarkable. Osseous Structures: Degenerative changes throughout the spine. Compression deformities in the T11 and T12 vertebral bodies are similar to the prior exam. IMPRESSION: VASCULAR: 1. 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 There is additional thrombus in the axillary artery with no significant contrast seen within the right upper extremity. 2. 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 3. Severe stenosis in the bilateral renal arteries. Left greater than right renal cortical thinning. 4. A 3.2 cm infrarenal abdominal aortic aneurysm. Bilateral common iliac artery aneurysms. 5. Occlusion of the proximal left SFA. 6. Short segment occlusion of the severely calcified splenic artery. NONVASCULAR: 1. No acute abnormalities in the abdomen or pelvis. No significant change from chest, abdomen and pelvis CT scan from 09/01/2016. 2. A 1.2 x 0.7 cm low-attenuation lesion in the body/tail of the pancreas could represent a small cystic pancreatic lesion versus invagination of fat. 3. Bilateral renal cysts. Findings were discussed with Cliff Mcfarlane at 3:30 PM on 09/08/2017
--- NOTE | 2017-09-08 16:02 | Operative Report ---
Operative/Inv Procedure Report Surgery Date: 09/08/17 Name of Procedure: Right axillary embolectomy, endarterectomy, patch angioplasty Pre-Operative Diagnosis: Ischemic right upper extremity Post-Operative Diagnosis: Same Estimated Blood Loss: less than 50ml Surgeon/Sample Wrapper: JOVI GARCIA MD Anesthesia: laryngeal mask airway Implants: Bovine pericardial patch Urine Output: See anesthesia record Drains: None Specimens: Right subclavian artery embolus Complications: None Condition: Stable Operative/Procedure Note Note: The patient was brought to the operating room and placed on the operating table in the supine position, and prepped and draped in the usual sterile fashion. Prior to the start of the procedure, a timeout was taken to confirm the patient and procedure, and a preoperative dose of 2 g of Ancef was administered. I made a transverse incision approximately 1 fingerbreadth below the clavicle on the right chest wall. I continued my dissection with a combination of blunt dissection and electrocautery down through the pectoralis major muscle. I reflected the pectoralis minor laterally, and identified the axillary artery. There was a large brachial plexus branch running along side it which was identified and protected. I encircled the axillary artery proximally and distally with Silastic vessel loops. The patient had been heparinized prior to the operating room and was on a continuous heparin infusion. I made a transverse arteriotomy as the artery was pulseless. There was clot present in the artery when I opened it. There was also fair amount of posterior atherosclerotic plaque present. I began to perform a limited endarterectomy of the posterior wall of the artery. As I was unable to visualize the posterior flap repair it, I extended my incision longitudinally in the artery. Multiple interrupted 5-0 Prolene and 6-0 Prolene sutures were used to tack the intimal flap posteriorly. A #4 Kranthi embolectomy catheter was passed centrally, multiple passes were made, and a large amount of thrombus was retrieved. There was now strong pulsatile bleeding from the axillary artery. I utilized a small bovine pericardial patch to perform a patch angioplasty. This was performed with a running 5-0 Prolene suture. Prior to completion, the artery was forward and backbled, and irrigated with heparinized saline. I completed the patch angioplasty. The artery was hemostatic when flow was reinstituted. Some topical fibrillar was placed for hemostasis. I irrigated the wound with saline. I then closed with 2 interrupted Vicryl sutures to reapproximate the pectoralis major, a running 3-0 Vicryl for the subdermal layer, and skin graciela. There was a palpable brachial and radial pulse present in the arm at the completion. I was present and scrubbed throughout the procedure. Findings: Moderate disease of the axillary artery, large amount of central thrombus retrieved from the subclavian artery. Discharge Disposition: PACU
[2017-09-08 17:00] VITALS: BP 144/90
[2017-09-08 19:17] LABS: PTT > 120 SEC (25-37)
[2017-09-08 20:00] VITALS: BP 150/96
--- NOTE | 2017-09-08 23:44 | PN- Vascular Surgery ---
Subjective Subjective: Postop check Pt is now POD #0 s/p R Right axillary embolectomy, endarterectomy, patch angioplasty. She tolerated the procedure well and was transferred to the ICU in stable condition for frequent monitoring after this critical procedure. She has no major complaints at this time. Pain is well controlled and she is tolerating po fluids. Voided x 2 (700 cc total so far since pacu). Denies RAMIREZ, dizziness, chest pain, shortness of breath. Objective Vital Signs and I&Os Vital Signs Date Time Temp Pulse Resp B/P B/P Pulse O2 O2 Flow FiO2 Mean Ox Delivery Rate 09/09 1999 98.0 84 16 150/96 95 Room Air 09/08 1840 Room Air 09/08 1700 98.9 94 19 144/90 97 Room Air 09/08 1233 98.6 88 18 164/78 94 Room Air 09/08 0914 98.6 74 16 95 Room Air Intake & Output 09/09 0800 09/09 0000 09/08 1600 09/08 0800 09/08 0000 09/07 1600 Intake Total 281.7 Output Total 200 Balance 81.7 Intake, IV 281.7 Output, Urine 200 Patient 153 lb 149 lb Weight Weight Bed scale Standing Scale Measurement Method Physical Exam: Gen.: Patient is resting, but very easily arousable. She is oriented 4. Cardiac: Irregular Pulmonary/chest: Lungs are clear to auscultation bilaterally. The right anterior chest dressing contains a scant amount of bloody drainage. Extremities: The right arm is warm down to the hand. 2+ brachial and radial pulses are appreciated. Right upper extremity sensation is intact. Assessment/Plan Assessment/Plan Patient is an 87-year-old female, who is now status post Right axillary embolectomy, endarterectomy, and patch angioplasty for ischemic right upper extremity due to subclavian embolus. She was successfully revascularized transferred to the ICU postoperatively for continuous monitoring. Plan: -Continue heparin drip for now. Hold pradaxa. -Neurovascular checks of the right upper extremity every 2 hours. -Okay to advance diet as tolerated. Will Hep-Lock IV fluids after completion of the first liter as patient is tolerating oral liquids. -Pain control with Tylenol or Percocet as needed. -DVT prophylaxis with Alps -Protonix for GI prophylaxis. -Home meds can be resumed tomorrow. -Leave surgical dressing in place. Reinforce if needed. -If patient remains stable overnight, anticipate transfer to [facility] in the morning. -Patient will need a hematology consult during this admission. -We will continue to monitor closely. Core Measures Venous Thromboembolism VTE Risk Factors Surgery No Mechanical VTE Prophylaxis d/t N/A MechProphylax Ordered No VTE Pharm Prophylaxis d/t NA PharmProphylax ordered
[2017-09-09] VITALS (7 sets, daily range): BP systolic 120–152; BP diastolic 62–90
[2017-09-09 03:55] LABS: PTT 92 SEC (25-37)
[2017-09-09 06:07] LABS: ABSOLUTE BASOPHIL COUNT 0 /CUMM (0.0-0.2); ABSOLUTE EOSINOPHIL COUNT 0.3 /CUMM (0.0-0.7); ABSOLUTE GRANULOCYTE CT 3.5 /CUMM (1.4-6.5); ABSOLUTE MONOCYTE COUNT 0.6 /CUMM (0.10-0.60); BASOPHIL % 0.4 % (0.0-2.0); EOSINOPHIL % 5.2 % (0-5); GRANULOCYTE % 54.3 % (42.2-75.2); MEAN CORPUSCULAR HGB 31.4 PG (27.0-31.0); MEAN CORPUSCULAR HGB CONC 33.6 G/DL (33.0-37.0); MEAN CORPUSCULAR VOLUME 93.4 FL (81.0-99.0); MEAN PLATELET VOLUME 8.2 FL (7.4-10.4); PLATELET COUNT 211 /CUMM (130-400); RBC DISTRIBUTION WIDTH 15.1 % (11.5-14.5); RED BLOOD CELL CT 3.67 /CUMM (4.20-5.40); WHITE BLOOD CELL COUNT 6.4 /CUMM (4.8-10.8)
--- NOTE | 2017-09-09 06:17 | PN- Vascular Surgery ---
Subjective Subjective: No acute events overnight. Patient admits to some soreness near her right shoulder in the vicinity of the incision site. Overall, she reports significant improvement in arm symptoms. She denies numbness, tingling, weakness. She is tolerating sips of clear liquids and is anxious to have breakfast this morning. No reports of nausea. She is voiding well. Otherwise denies chest pain or difficulty breathing. Objective Vital Signs and I&Os Vital Signs Date Time Temp Pulse Resp B/P B/P Pulse O2 O2 Flow FiO2 Mean Ox Delivery Rate 09/09 0400 98.0 78 18 129/63 93 Nasal Cannula 09/09 0200 97.9 80 18 152/90 96 Nasal Cannula 09/09 0000 98.0 72 18 130/64 97 Room Air 09/08 2000 98.0 84 16 150/96 95 Room Air 09/08 1840 Room Air 09/08 1700 98.9 94 19 144/90 97 Room Air 09/08 1233 98.6 88 18 164/78 94 Room Air 09/08 0914 98.6 74 16 95 Room Air Intake & Output 09/09 0800 09/09 0000 09/08 1600 09/08 0800 09/08 0000 09/07 1600 Intake Total 450 281.7 Output Total 200 Balance 450 81.7 Intake, IV 400 281.7 Intake, Oral 50 Output, Urine 200 Patient 153 lb 149 lb Weight Weight Bed scale Standing Scale Measurement Method Physical Exam: Gen.: Patient is resting, but easily arousable. She verbalizes well and is oriented 4. Cardiac: Irregular Pulmonary/chest: Lungs are clear bilaterally and breath sounds are heard from the apex to the base. No wheezes are appreciated. Dressing site remains clean and intact with a scant amount of bloody drainage, no change since last night. She has some mild ecchymosis lateral to the dressing site near her right shoulder. Extremities: The right arm is warm from the shoulder down to the tips of the fingers. Strength is 5 out of 5. Brachial and radial pulses are 2+. Assessment/Plan Assessment/Plan Patient is an 87-year-old female, who is now postop day #1 status post Right axillary embolectomy, endarterectomy, and patch angioplasty for ischemic right upper extremity due to subclavian embolus. She was successfully revascularized transferred to the ICU postoperatively for continuous monitoring. Plan: -Okay to transfer to telemetry this morning. -Continue heparin drip. Hold pradaxa. -Neurovascular checks of the right upper extremity every 2 hours. -Advance diet as tolerated. IV fluids have been discontinued. -Pain control with Tylenol or Percocet as needed. -DVT prophylaxis with Alps (also on heparin gtt). -Protonix for GI prophylaxis. -Home meds can be resumed today. -Leave surgical dressing in place. Reinforce if needed. -Will request hematology consult today. Patient does not have a nurse private duty and states that her primary doctor and [place] manages all of her care, including her Pradaxa for A. fib. -We will continue to monitor closely. Core Measures Venous Thromboembolism VTE Risk Factors Surgery No Mechanical VTE Prophylaxis d/t N/A MechProphylax Ordered No VTE Pharm Prophylaxis d/t NA PharmProphylax ordered
[2017-09-09 06:19] LABS: HEMATOCRIT 34.3 % (37-47)
[2017-09-09 10:26] LABS: PTT 73 SEC (25-37)
[2017-09-09 22:10] LABS: PTT 59 SEC (25-37)
[2017-09-10 05:31] LABS: PTT 88 SEC (25-37)
[2017-09-10 07:08] VITALS: BP 140/74
--- NOTE | 2017-09-10 08:05 | Cons- Hematology ---
General Information and HPI Consulting Request Date of Consult: 09/10/17 Requested By: Misael Aldridge MD Reason for Consult: arterial thrombus Source of Information: patient, old records Exam Limitations: no limitations History of Present Illness: Ms. Veloz is an 87-year-old female with atrial fibrillation on Pradaxa, CAD, PVD, and previous embolectomy who presented Sunday morning with heaviness in her right arm and numbness. She denies any pain. She denies any dizziness, lightheadedness, shortness of breath, or chest pain. She denies any changes in her vision. She denies any headaches. On presentation, she had head CT done (09/08/2017) which demonstrated no acute intracranial pathology. There was mild involutional changes and findings of ischemic small vessel disease. 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 There is additional thrombus in the axillary artery with no significant contrast seen within the right upper extremity. 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 Severe stenosis in the bilateral renal arteries. Left greater than right Occlusion of the proximal left SFA. Short segment occlusion of the severely calcified splenic artery. She was taken to the OR on 09/08/2017 for right axillary embolectomy, endarterectomy, patch angioplasty. She was placed on heparin drip. She has done well since that time. She states she has been compliant with Pradaxa. She is not taking any antiplatelet therapy. Allergies/Medications Allergies: Coded Allergies: No Known Drug Allergies (06/29/16) Home Med List: Acetaminophen 500 MG TABLET 1 TAB PO QAM PAIN (Reported) Amlodipine (Norvasc) 2.5 MG TABLET 1 TAB PO DAILY BP (Reported) Cholecalciferol (Vitamin D3) (Vitamin D) 1,000 UNIT TABLET 1 TAB PO DAILY SUPPLEMENT (Reported) Cyclobenzaprine HCl 5 MG TABLET 1 TAB PO Q6 PRN BACK PAIN/SPASMS Dabigatran Etexilate Mesylate (Pradaxa 150 MG) 150 MG CAPSULE 1 CAP PO BID blood thinner Diclofenac Potassium 50 MG TABLET 1 TAB PO TID PRN PAIN Glucosamine Sulfate 2KCL (Glucosamine) (Unknown Strength) TABLET (Unknown Dose ) PO DAILY SUPPLEMENT (Reported) Levothyroxine Sodium (Synthroid) 75 MCG TABLET 1 TAB PO DAILY THYROID ( Reported) Metoprolol Succ XL (Toprol XL) 25 MG TAB.ER.24H 1 TAB PO DAILY HEART/BP ( Reported) Simvastatin (Zocor*) 20 MG TABLET 1 TAB PO DAILY CHOLESTEROL (Reported) Current Medications: Current Medications Sig/James Start time Last Medication Dose Route Stop Time Status Admin Acetaminophen 1,000 MG Q6P PRN 09/08 1730 AC N/A 1 UNIT IV Acetaminophen 650 MG Q4P PRN 09/08 1730 AC PO Amlodipine Besylate 2.5 MG DAILY 09/09 1000 AC 09/09 PO 0900 Atorvastatin Calcium 10 MG 1700 09/09 1700 AC 09/09 PO 1831 Heparin Sodium 25,000 UNIT Q24H 09/08 1730 AC 09/09 (Porcine) IV 2234 Sodium Chloride 500 ML Levothyroxine Sodium 0.075 MG DAILY AC 09/09 0700 AC 09/10 PO 0649 Metoprolol Succinate 25 MG DAILY 09/09 1000 AC 09/09 PO 0859 Morphine Sulfate 2 MG Q4P PRN 09/08 1800 AC IV Oxycodone/ 1 TAB Q4P PRN 09/08 1730 AC Acetaminophen PO Pantoprazole Sodium 40 MG DAILY 09/09 1000 AC 09/09 IV 0858 Potassium Chloride 40 MEQ ONCE ONE 09/09 0800 DC 09/09 PO 09/09 0801 0859 Review of Systems Review of Systems Constitutional: Denies: chills, fever, weakness. EENTM: Denies: blurred vision, double vision, visual changes. Cardiovascular: Denies: chest pain. Respiratory: Denies: short of breath. GI: Denies: abdominal pain. Genitourinary: Denies: dysuria. Musculoskeletal: Reports: joint pain. Denies: back pain. Skin: Denies: erythema, rash. Neurological/Psychological: Reports: numbness, paresthesia. Denies: anxiety, confusion. Hematologic/Endocrine: Denies: bruising, bleeding. Immunologic/Allergic: Denies: lymphadenopathy. All Other Systems: Reviewed and Negative Past History Travel History Traveled to [place] past 21 day No Medical History Blood Transfusion Hx: No Neurological: NONE EENT: NONE Cardiovascular: AFIB, CAD, hypertension, hyperlipidemia, PVD Respiratory: NONE Gastrointestinal: NONE Hepatic: NONE Renal: NONE Musculoskeletal: NONE Psychiatric: NONE Endocrine: hypothyroidism Blood Disorders: NONE Cancer(s): NONE NURSERY MANAGER/Reproductive: NONE Other Medical Hx: dvt upper extremity Surgical History Surgical History: appendectomy, RIGHT BRACHIAL EMBOLECTOM Psychosocial History Where Do You Live? Home Who Do You Live With? child Services at Home: None Primary Language: Chinese Smoking Status: Never Smoked Living Will? unknown Power of Spinal Surgeon/HCP? unknown Name of POA/HCP: unknown Functional Ability ADLs Independent: dressing, eating, toileting, bathing. Ambulation: independent IADLs Independent: medication admin. Exam & Diagnostic Data Vital Signs and I&O Vital Signs Date Time Temp Pulse Resp B/P B/P Pulse O2 O2 Flow FiO2 Mean Ox Delivery Rate 09/10 0710 82 09/10 0708 98.6 114 20 140/74 93 Room Air 09/09 2257 98.6 73 20 142/80 97 09/09 1849 98.0 103 20 140/72 98 Room Air 09/09 1600 98.2 76 23 120/62 98 Room Air Room Air 09/09 0900 94 140/74 09/09 0859 80 140/74 09/09 0800 97 Room Air 09/09 0800 99.4 86 22 140/74 97 Room Air Intake & Output 09/10 0800 09/10 0000 09/09 1600 Intake Total 212 288 480 Output Total Balance 212 288 480 Intake, IV 152 48 80 Intake, Oral 60 240 400 Patient 72.263 kg Weight Physical Exam General Appearance: well developed/nourished, no apparent distress, alert, awake , comfortable, thin Head: atraumatic, normal appearance Eyes: Bilateral: PERRL, EOMI. Ears, Nose, Throat: normal pharynx Neck: supple Respiratory: normal breath sounds, chest non-tender, no respiratory distress Cardiovascular: murmur, irregularly irregular Gastrointestinal: normal bowel sounds, soft, non-tender Extremities: no edema Neurologic/Psych: awake, alert, oriented x 3 Skin: dressing on R shoulder intact Last 48 Hours of Lab Results: Laboratory Tests 09/10 09/09 09/09 09/09 0430 2126 0919 0520 Chemistry Sodium (137 - 145 mmol/L) 133 L Potassium (3.5 - 5.1 mmol/L) 3.5 Chloride (98 - 107 mmol/L) 101 Carbon Dioxide (22 - 30 mmol/L) 28 Anion Gap (5 - 16) 4 L BUN (7 - 17 mg/dL) 15 Creatinine (0.5 - 1.0 mg/dL) 0.8 Estimated GFR (>60 ml/min) > 60 Glucose (65 - 99 mg/dL) 92 Calcium (8.4 - 10.2 mg/dL) 9.0 Phosphorus (2.5 - 4.5 mg/dL) 3.0 Magnesium (1.6 - 2.3 mg/dL) 1.7 Total Bilirubin (0.2 - 1.3 mg/dL) 0.4 AST (14 - 36 U/L) 21 ALT (9 - 52 U/L) 24 Albumin (3.5 - 5.0 g/dL) 2.6 L Coagulation APTT (25 - 37 SEC) 88 H 59 H 73 H Hematology CBC w Diff NO MAN DIFF REQ WBC (4.8 - 10.8 /CUMM) 6.4 RBC (4.20 - 5.40 /CUMM) 3.67 L Hgb (12.0 - 16.0 G/DL) 11.5 L Hct (37 - 47 %) 34.3 L MCV (81.0 - 99.0 FL) 93.4 MCH (27.0 - 31.0 PG) 31.4 H MCHC (33.0 - 37.0 G/DL) 33.6 RDW (11.5 - 14.5 %) 15.1 H Plt Count (130 - 400 /CUMM) 211 MPV (7.4 - 10.4 FL) 8.2 Gran % (42.2 - 75.2 %) 54.3 Lymphocytes % (20.5 - 51.1 %) 31.4 Monocytes % (1.7 - 9.3 %) 8.7 Eosinophils % (0 - 5 %) 5.2 H Basophils % (0.0 - 2.0 %) 0.4 Absolute Granulocytes (1.4 - 6.5 /CUMM) 3.5 Absolute Lymphocytes (1.2 - 3.4 /CUMM) 2.0 Absolute Monocytes (0.10 - 0.60 /CUMM) 0.6 Absolute Eosinophils (0.0 - 0.7 /CUMM) 0.3 Absolute Basophils (0.0 - 0.2 /CUMM) 0 09/09 09/08 09/08 0310 1825 1244 Chemistry Lactic Acid Cancelled Coagulation APTT (25 - 37 SEC) 92 H > 120 *H 09/08 1006 Chemistry Sodium (137 - 145 mmol/L) 141 Potassium (3.5 - 5.1 mmol/L) 4.2 Chloride (98 - 107 mmol/L) 102 Carbon Dioxide (22 - 30 mmol/L) 29 Anion Gap (5 - 16) 10 BUN (7 - 17 mg/dL) 20 H Creatinine (0.5 - 1.0 mg/dL) 0.9 Estimated GFR (>60 ml/min) 59 L BUN/Creatinine Ratio (7 - 25 %) 22.2 Glucose (65 - 99 mg/dL) 103 H Lactic Acid (0.7 - 2.1 mmol/L) 1.4 Calcium (8.4 - 10.2 mg/dL) 10.3 H Total Bilirubin (0.2 - 1.3 mg/dL) 0.7 AST (14 - 36 U/L) 29 ALT (9 - 52 U/L) 23 Alkaline Phosphatase (<127 U/L) 143 H Troponin I (< 0.11 ng/ml) < 0.01 Total Protein (6.3 - 8.2 g/dL) 6.6 Albumin (3.5 - 5.0 g/dL) 3.6 Globulin (1.9 - 4.2 gm/dL) 3.0 Albumin/Globulin Ratio (1.1 - 2.2 %) 1.2 Coagulation PT (9.4 - 12.5 SEC) 11.9 INR (0.90 - 1.19) 1.09 APTT (25 - 37 SEC) 37 Hematology CBC w Diff NO MAN DIFF REQ WBC (4.8 - 10.8 /CUMM) 6.0 RBC (4.20 - 5.40 /CUMM) 4.73 Hgb (12.0 - 16.0 G/DL) 14.4 Hct (37 - 47 %) 44.6 MCV (81.0 - 99.0 FL) 94.4 MCH (27.0 - 31.0 PG) 30.3 MCHC (33.0 - 37.0 G/DL) 32.1 L RDW (11.5 - 14.5 %) 14.9 H Plt Count (130 - 400 /CUMM) 267 MPV (7.4 - 10.4 FL) 8.3 Gran % (42.2 - 75.2 %) 57.8 Lymphocytes % (20.5 - 51.1 %) 27.0 Monocytes % (1.7 - 9.3 %) 7.1 Eosinophils % (0 - 5 %) 7.4 H Basophils % (0.0 - 2.0 %) 0.7 Absolute Granulocytes (1.4 - 6.5 /CUMM) 3.5 Absolute Lymphocytes (1.2 - 3.4 /CUMM) 1.6 Absolute Monocytes (0.10 - 0.60 /CUMM) 0.4 Absolute Eosinophils (0.0 - 0.7 /CUMM) 0.4 Absolute Basophils (0.0 - 0.2 /CUMM) 0 Imaging/Other Studies: CTA chest/Upper extremity 09/08/2017: VASCULAR: 1. 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 There is additional thrombus in the axillary artery with no significant contrast seen within the right upper extremity. 2. 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 3. Severe stenosis in the bilateral renal arteries. Left greater than right renal cortical thinning. 4. A 3.2 cm infrarenal abdominal aortic aneurysm. Bilateral common iliac artery aneurysms. 5. Occlusion of the proximal left SFA. 6. Short segment occlusion of the severely calcified splenic artery. NONVASCULAR: 1. No acute abnormalities in the abdomen or pelvis. No significant change from chest, abdomen and pelvis CT scan from 09/01/2016. 2. A 1.2 x 0.7 cm low-attenuation lesion in the body/tail of the pancreas could represent a small cystic pancreatic lesion versus invagination of fat. 3. Bilateral renal cysts. CTA neck 09/08/2017: There is a filling defect consistent with a thrombus located within the right subclavian artery at the thoracic outlet measuring 2.7 cm in length. Heavily calcified atheromatous plaque involves both carotid bifurcations. There is 50% stenosis at the origin of the right internal carotid artery at 10% stenosis at the origin of the left internal carotid artery. There is high-grade stenosis or occlusion at the junction of the V1 and V2 segments of the left vertebral artery and focal high-grade narrowing at the origin of the dominant right vertebral artery. Assessment/Plan Assessment: Ms. Veloz is an 87-year-old female with atrial fibrillation on Pradaxa, PVD, and HTN who presents with ischemic RUE. She is now status post right axillary embolectomy, endarterectomy, and patch angioplasty on 09/08/2017. She is now on heparin drip. She is doing better. She previously had similar presentation in 06/2016. She had a SDH at that time secondary to a fall. She has been on warfarin and was transitioned to Pradaxa. She was previously recommended to be on antiplatelet therapy. Her disease seems to be all arterial. She would benefit from antiplatelet therapy. This may be added to her Pradaxa. She will need to be monitored closely for new arterial occlusion. 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 Acute thrombosis of right upper extremity 2. Arterial occlusion 3. Atrial fibrillation Other Findings/Comments: Please call [phone] with any questions or concerns. Consult Acknowledgment - Thank you for your consult request.
--- NOTE | 2017-09-10 08:20 | PN- Vascular Surgery ---
Subjective Subjective: feeling well, would like to go home. denies RUE pain or weakness, no parasthesias. no cp/sob/n/v, roxie diet. Objective Vital Signs and I&Os Vital Signs Date Time Temp Pulse Resp B/P B/P Pulse O2 O2 Flow FiO2 Mean Ox Delivery Rate 09/10 0710 82 09/10 0708 98.6 114 20 140/74 93 Room Air 09/09 2257 98.6 73 20 142/80 97 09/09 1849 98.0 103 20 140/72 98 Room Air 09/09 1600 98.2 76 23 120/62 98 Room Air Room Air 09/09 0900 94 140/74 09/09 0859 80 140/74 Intake & Output 09/10 1600 09/10 0800 09/10 0000 09/09 1600 09/09 0800 09/09 0000 Intake Total 212 288 480 450 281.7 Output Total 200 Balance 212 288 480 450 81.7 Intake, IV 152 48 80 400 281.7 Intake, Oral 60 240 400 50 Output, Urine 200 Patient 159 lb 153 lb Weight Weight Bed scale Measurement Method Physical Exam: gen- nad card- s1s2 irreg irreg pulm- ctab abd- soft nt ext- calves soft nt bl. R chest incision closed w graciela- cdi. mildly ttp at incision, soft, no hematoma. RUE: palpable brachial, radial pulse. gross sensation intact. field organizer 5/5 equal bl Results Last 48 Hours of Labs: Laboratory Tests 09/10 09/09 09/09 09/09 0430 2126 0919 0520 Chemistry Sodium (137 - 145 mmol/L) 133 L Potassium (3.5 - 5.1 mmol/L) 3.5 Chloride (98 - 107 mmol/L) 101 Carbon Dioxide (22 - 30 mmol/L) 28 Anion Gap (5 - 16) 4 L BUN (7 - 17 mg/dL) 15 Creatinine (0.5 - 1.0 mg/dL) 0.8 Estimated GFR (>60 ml/min) > 60 Glucose (65 - 99 mg/dL) 92 Calcium (8.4 - 10.2 mg/dL) 9.0 Phosphorus (2.5 - 4.5 mg/dL) 3.0 Magnesium (1.6 - 2.3 mg/dL) 1.7 Total Bilirubin (0.2 - 1.3 mg/dL) 0.4 AST (14 - 36 U/L) 21 ALT (9 - 52 U/L) 24 Albumin (3.5 - 5.0 g/dL) 2.6 L Coagulation APTT (25 - 37 SEC) 88 H 59 H 73 H Hematology CBC w Diff NO MAN DIFF REQ WBC (4.8 - 10.8 /CUMM) 6.4 RBC (4.20 - 5.40 /CUMM) 3.67 L Hgb (12.0 - 16.0 G/DL) 11.5 L Hct (37 - 47 %) 34.3 L MCV (81.0 - 99.0 FL) 93.4 MCH (27.0 - 31.0 PG) 31.4 H MCHC (33.0 - 37.0 G/DL) 33.6 RDW (11.5 - 14.5 %) 15.1 H Plt Count (130 - 400 /CUMM) 211 MPV (7.4 - 10.4 FL) 8.2 Gran % (42.2 - 75.2 %) 54.3 Lymphocytes % (20.5 - 51.1 %) 31.4 Monocytes % (1.7 - 9.3 %) 8.7 Eosinophils % (0 - 5 %) 5.2 H Basophils % (0.0 - 2.0 %) 0.4 Absolute Granulocytes (1.4 - 6.5 /CUMM) 3.5 Absolute Lymphocytes (1.2 - 3.4 /CUMM) 2.0 Absolute Monocytes (0.10 - 0.60 /CUMM) 0.6 Absolute Eosinophils (0.0 - 0.7 /CUMM) 0.3 Absolute Basophils (0.0 - 0.2 /CUMM) 0 09/09 09/08 09/08 0310 1825 1244 Chemistry Lactic Acid Cancelled Coagulation APTT (25 - 37 SEC) 92 H > 120 *H 09/08 1006 Chemistry Sodium (137 - 145 mmol/L) 141 Potassium (3.5 - 5.1 mmol/L) 4.2 Chloride (98 - 107 mmol/L) 102 Carbon Dioxide (22 - 30 mmol/L) 29 Anion Gap (5 - 16) 10 BUN (7 - 17 mg/dL) 20 H Creatinine (0.5 - 1.0 mg/dL) 0.9 Estimated GFR (>60 ml/min) 59 L BUN/Creatinine Ratio (7 - 25 %) 22.2 Glucose (65 - 99 mg/dL) 103 H Lactic Acid (0.7 - 2.1 mmol/L) 1.4 Calcium (8.4 - 10.2 mg/dL) 10.3 H Total Bilirubin (0.2 - 1.3 mg/dL) 0.7 AST (14 - 36 U/L) 29 ALT (9 - 52 U/L) 23 Alkaline Phosphatase (<127 U/L) 143 H Troponin I (< 0.11 ng/ml) < 0.01 Total Protein (6.3 - 8.2 g/dL) 6.6 Albumin (3.5 - 5.0 g/dL) 3.6 Globulin (1.9 - 4.2 gm/dL) 3.0 Albumin/Globulin Ratio (1.1 - 2.2 %) 1.2 Coagulation PT (9.4 - 12.5 SEC) 11.9 INR (0.90 - 1.19) 1.09 APTT (25 - 37 SEC) 37 Hematology CBC w Diff NO MAN DIFF REQ WBC (4.8 - 10.8 /CUMM) 6.0 RBC (4.20 - 5.40 /CUMM) 4.73 Hgb (12.0 - 16.0 G/DL) 14.4 Hct (37 - 47 %) 44.6 MCV (81.0 - 99.0 FL) 94.4 MCH (27.0 - 31.0 PG) 30.3 MCHC (33.0 - 37.0 G/DL) 32.1 L RDW (11.5 - 14.5 %) 14.9 H Plt Count (130 - 400 /CUMM) 267 MPV (7.4 - 10.4 FL) 8.3 Gran % (42.2 - 75.2 %) 57.8 Lymphocytes % (20.5 - 51.1 %) 27.0 Monocytes % (1.7 - 9.3 %) 7.1 Eosinophils % (0 - 5 %) 7.4 H Basophils % (0.0 - 2.0 %) 0.7 Absolute Granulocytes (1.4 - 6.5 /CUMM) 3.5 Absolute Lymphocytes (1.2 - 3.4 /CUMM) 1.6 Absolute Monocytes (0.10 - 0.60 /CUMM) 0.4 Absolute Eosinophils (0.0 - 0.7 /CUMM) 0.4 Absolute Basophils (0.0 - 0.2 /CUMM) 0 Assessment/Plan Assessment/Plan A- POD2 sp r axillary embolectomy & endarterectomy for ischemic RUE due to occlusive thrombus, stable, on hep gtt. P- appreciate heme input. rec: antiplt with pradaxa. will dw vasc attending. cont hep gtt for now cont home meds hh diet oob cbc pdg dc planning Core Measures Venous Thromboembolism VTE Risk Factors Surgery No Mechanical VTE Prophylaxis d/t N/A MechProphylax Ordered No VTE Pharm Prophylaxis d/t NA PharmProphylax ordered
[2017-09-10 11:31] LABS: PTT 85 SEC (25-37)
--- NOTE | 2017-09-10 12:10 | Patient Discharge Instructions ---
Discharge Instructions General Discharge Information You were seen/treated for: Right axillary arterial emboli You had these procedures: Subclavian endarterectomy Watch for these problems: Worsening pain in the arm, numbness and tingling, coolness of the extremity, fever, flulike illness, redness about the incision or drainage from the incision Call Surgeon to remove: Fe (within 2 weeks) Do not soak the wound: Yes Daily wet to dry dressings: No No bath, but you may shower: Yes Other wound care: Change dressing after 3 days, dry dressing or Band-Aid's Special Instructions: Continue with your Pradaxa 150mg 2x per day and baby aspirin, 81mg once per day Diet Continue normal diet: Yes Activity Full Activity/No Limits: No Activity Self Limited: Yes Pounds, do NOT lift more than: 10 (with your right arm) Acute Coronary Syndrome Inclusion Criteria At DC or during hospital stay patient has or had the following: ACS DIAGNOSIS No Discharge Core Measures Meds if any: Prescribed or Continued at Discharge Meds if any: NOT Prescribed or Continued at Discharge Congestive Heart Failure Inclusion Criteria At DC or during hospital stay patient has or had the following: CHF DIAGNOSIS No Discharge Core Measures Meds if any: Prescribed or Continued at Discharge Meds if any: NOT Prescribed or Continued at Discharge Cerebrovascular accident Inclusion Criteria At DC or during hospital stay patient has or had the following: CVA/TIA Diagnosis No Discharge Core Measures Meds if any: Prescribed or Continued at Discharge Meds if any: NOT Prescribed or Continued at Discharge Venous thromboembolism Inclusion Criteria VTE Diagnosis No VTE Type NONE VTE Confirmed by (Test) NONE Discharge Core Measures - Per Current guidelines, there needs to be overlap - treatment for the first 5 days of Warfarin therapy. - If discharged on Warfarin prior to 5 days of - overlap therapy, the patient will need to be - assessed for post discharge needs including - *Post discharge parental anticoagulation - *Warfarin and/or parental anticoagulation education - *Follow up date to check INR post discharge At least 5 days overlap therapy as Inpatient No Meds if any: Prescribed or Continued at Discharge Note: Overlap Therapy is Warfarin and Anticoagulant Meds if any: NOT Prescribed or Continued at Discharge
--- NOTE | 2017-09-10 12:12 | Surg Short-stay <48hrs Dis Sum ---
Visit Information Visit Dates Admission Date: 09/08/17 Discharge Date: 09/10/17 Surgical Short Stay DC Summary Admission Diagnosis: Name of Procedure: Right axillary embolectomy, endarterectomy, patch angioplasty Pre-Operative Diagnosis: Ischemic right upper extremity Final Diagnosis: See above Procedure(s): See above Summary/Significant Findings: Patient presented with an ischemic right upper extremity was found to have axillary emboli, underwent a subclavian endarterectomy and patch. She did well postoperatively, she was placed on heparin drip which is transition over to Pradaxa and antiplatelet was added as well after hematology consult. She recovered quickly and was discharged in stable condition Condition at Discharge: good Discharge Disposition: home or self care Discharge instructions provided to patient/family: Yes Post discharge follow-up plan: Continue the antiplatelet and Pradaxa, follow-up with Dr. Aldridge within 2 weeks
--- NOTE | 2017-09-10 12:18 | PN- Vascular Surgery ---
Surgical Brief Attending Note Brief Attending Note: POD 2 s/p R axillary thrombectomy and patch angioplasty. She is doing well without complaints this am. On exam, there is an easily palpable R radial pulse, and the arm is well perfused. Appreciate hematology input, will plan to transition back to pradaxa, as she has been tolerating that well for more than a year, and add 81mg aspirin daily as an anti-platelet agent. Plan: Start pradaxa D/C heparin 2h after first dose of pradaxa Plan for discharge today after heparin D/C Follow up in my office 1-2 weeks for wound check and staple removal [phone]
[2017-09-10] MEDS ORDERED: ASPIRIN EC81 M1 PO (12:26)
[2017-09-10] MEDS ORDERED: PERCOCET 5-3251 EACH PO (12:26)
[2017-09-10 14:50] VITALS: BP 140/77
== END 2017-09-10 19:00 | DRG 272 ==
LOC: ERH 09:12 → 1NO 16:00 → PACUH 16:00 → ENRESERV 16:13 → ENTRNSPT 16:52 → EDTRNSPTSTS 16:58 → CMPTRNSPT 17:13 → CRI 17:25 → 1NO 09-09 17:30 → ENTRNSPT 09-10 18:43 → 1NO 09-10 19:00 → CMPTRNSPT 09-10 19:10
PROVIDERS: Physician Assistant Medical; Physician Assistant Surgical; Surgery Vascular Surgery
PROC: 03C Upper Arteries, Extirpation (ICD-10-PCS; principal; 2017-09-08)
PROC: 03U Upper Arteries, Supplement (ICD-10-PCS; principal; 2017-09-08)
DX: I75.011 Atheroembolism of right upper extremity (principal); I48.91 Unspecified atrial fibrillation; I73.9 Peripheral vascular disease, unspecified; Z79.01 Long term (current) use of anticoagulants; I10 Essential (primary) hypertension; E03.9 Hypothyroidism, unspecified; E78.5 Hyperlipidemia, unspecified; I25.10 Atherosclerotic heart disease of native coronary artery without angina pectoris
CPT/HCPCS: 1NSP; CCU; 36415; 82436; 93005; 93010; 96374; 99291; C1725; J0131; J1644; J7042